=== PATIENT | female | born 1950 | race Caucasian/White ===

== ENCOUNTER → 2020-12-28 12:40 | Outpatient (BNVA) | payer MEDICARE, MEDICAID, SELFPAY | PROVIDERS: PCP Family Medicine; Visit Provider Internal Medicine | DX: I48.0 Paroxysmal atrial fibrillation (principal); I10 Essential (primary) hypertension; Z79.01 Long term (current) use of anticoagulants; Z79.899 Other long term (current) drug therapy | CPT/HCPCS: 99212 ==

== ENCOUNTER 2021-05-01 14:09 | Inpatient (IN) | payer MEDICARE, MEDICAID, SELFPAY ==
--- NOTE | ~2021-05-01 | XR_ITS ---
EXAMINATION: XR CHEST CLINICAL INFORMATION: Elevated white count. COMPARISON: Chest 03/06/2020 TECHNIQUE: 2 views of the chest were obtained. FINDINGS: No significant abnormality is noted involving the heart, lungs, mediastinum, bony thorax or soft tissues. There is an ventral plate lower cervical spine for fusion. XR/XR chest 2V IMPRESSION: Unremarkable chest examination.
[2021-05-01 14:17] VITALS: BP 147/81; PULSE 90; RESP 18; TEMP 36.8; O2SAT 96; BMI 37.8
--- NOTE | 2021-05-01 16:03 | ECG_ITS ---
Test Reason : CRISIS Blood Pressure : / mmHG Vent. Rate : 081 BPM Atrial Rate : 394 BPM P-R Int : 000 ms QRS Dur : 086 ms QT Int : 378 ms P-R-T Axes : 000 005 004 degrees QTc Int : 439 ms Atrial fibrillation Nonspecific ST and T wave abnormality Abnormal ECG When compared with ECG of 06-MAR-2020 08:25, No significant change was found Referred By: Generic ED Physician Electronically Signed By:HARINDER CAPUTO MD
--- NOTE | 2021-05-01 16:28 | ED.PSYCH ---
HPI - Psych General Chief Complaint: Psychiatric Symptoms Stated Complaint: emotions needs Time Seen by Provider: 05/01/21 16:06 Source: patient Mode of arrival: ambulatory Limitations: no limitations History of Present Illness HPI Narrative: 71-year-old female with a past medical history depression, AFib on Eliquis, hypertension, hyperlipidemia, hypothyroidism here with complaints of depression. The patient tells me that for the last year and a half she has been struggling with depression despite taking her medication. She had been doing ECT therapy which had improved her symptoms however due to the AFib that she was unable to continue this. She has been followed up by her psychiatrist. Over the last 5 weeks she feels like her depression is getting worse. She denies any suicidal thoughts. She tells me that she has been struggling with some nausea with vomiting and headaches with a 15 lb weight loss in the last 5 weeks. She tells me last week she was admitted to [facility] for this complaint for [address] head, CT A/P as well as additional test which she does not know the names of. She tells me that she is waiting for the results of her upper GI series. She is currently on Prilosec to 20 mg b.i.d.. She has Zofran and Compazine as needed at home. She tells me that she has nausea with eating. No abdominal pain. She does tell me that she is able to tolerate soft foods and liquids which do not bother her but has difficulty with more solid foods. complaint: feels depressed Related Data Home Medications Medication Instructions Recorded Confirmed desvenlafaxine succinate 50 mg 50 mg PO DAILY 12/28/20 05/01/21 tablet,extended release 24 hr diclofenac sodium 1 % topical gel 1 g TOPICAL QID PRN 12/28/20 05/01/21 dicyclomine 20 mg tablet 20 mg PO TID 12/28/20 05/01/21 loperamide 2 mg capsule 2 mg PO DAILY PRN 12/28/20 05/01/21 atorvastatin 80 mg PO DAILY 05/01/21 05/01/21 levothyroxine 100 mcg PO DAILY 05/01/21 05/01/21 lorazepam [Ativan] 0.25 mg PO DAILY PRN 05/01/21 05/01/21 lorazepam [Ativan] 0.5 mg PO BEDTIME PRN 05/01/21 05/01/21 metformin 500 mg PO DAILY 05/01/21 05/01/21 Previous Rx's Medication Instructions Recorded metoprolol succinate 25 mg 25 mg PO DAILY #90 tab 09/07/20 tablet,extended release 24 hr apixaban 5 mg tablet 5 mg PO BID 90 Days #180 tab 12/14/20 amlodipine 5 mg tablet 5 mg PO DAILY #90 tab 03/06/21 Allergies Allergy/AdvReac Type Severity Reaction Status Date / Time hornet venom [HORNETS] Allergy Unknown UNKNOWN Verified 12/28/20 13:03 morphine [MORPHINE] Allergy Unknown UNKNOWN Verified 12/28/20 13:03 tetracycline [TETRACYCLINE] Allergy Unknown UNKNOWN Verified 12/28/20 13:03 aspirin AdvReac Unknown nose bleeds Verified 12/28/20 13:04 Review of Systems Review of Systems: Yes all other systems are reviewed and are negative Constitutional: Constitutional: Reports no additional constitutional complaints, Denies body ache(s), Denies chills, Denies fever(s), Reports headache(s) and Denies weakness Eyes: Eyes: Reports no additional eye complaints and Denies change in vision ENT: Reports system reviewed and no additional complaints, except as documented, Denies dizziness, Reports headache(s), Denies nasal congestion, Denies nasal discharge and Denies neck pain Cardiovascular: Cardiovascular: Reports no additional cardiovascular complaints, Denies chest pain, Denies leg edema and Denies dyspnea Respiratory: Respiratory: Reports no additional respiratory complaints, Denies cough and Denies dyspnea Gastrointestinal: Gastrointestinal: Reports no additional gastrointestinal complaints, Denies abdominal pain, Denies diarrhea, Reports nausea and Reports vomiting Genitourinary: Genitourinary: Reports no additional female genitourinary complaints and Denies urinary incontinence Musculoskeletal: Musculoskeletal: Reports no additional musculoskeletal complaints, Denies back pain, Denies arthralgias, Denies joint swelling, Denies neck pain, Denies numbness and Denies tingling Integumentary/Breasts: Skin/Breast: Reports system reviewed and no additional complaints, except as docu and Denies rash Neurologic: Reports system reviewed and no additional complaints, except as documented, Denies Abnormal speech present, Denies dizziness, Reports headache(s), Denies numbness, Denies tingling and Denies weakness Psychiatric: Psychiatric: Reports anxiety, Reports depression, Denies hallucinations, Denies homicidal ideation and Denies suicidal ideation [facility] Past Medical History Attestation statement: The following information was validated with the patient. Source: old records reviewed and nursing notes reviewed Medical History (Updated 05/01/21 @ 20:21 by Elvi Santiago NP) Essential hypertension High cholesterol Hypothyroidism PAF (paroxysmal atrial fibrillation) Surgical History No pertinent past surgical history Family History Family History Father FH: prostate cancer Mother CVD (cardiovascular disease) Social History Social History Smoked in Last 30 Days: No Use of substances other than those prescribed or required for medical reasons: No Any prior treatment program specific to substance use: No Advance Directives: No Advance Directives Information Provided: Yes Healthcare Proxy: Yes Guardian: No Physical Exam Vital Signs: Vital Signs: Last Vital Signs Temp 97.9 F 05/01/21 19:53 Pulse 77 05/01/21 19:53 Resp 18 05/01/21 19:53 BP 136/76 05/01/21 19:53 Pulse Ox 98 05/01/21 19:53 Body Mass Index 37.8 Const: General: cooperative, healthy appearing, comfortable and no acute distress Orientation/consciousness: patient oriented x3 Limitations: no limitations HENMT: Head: Yes normal to inspection Ears: hearing grossly normal bilaterally General nose exam: Normal external nose present Face and sinus: Yes normal facial exam Mouth: Normal oral and palatal mucosa present Throat: Yes posterior oropharynx normal Eyes: General: appearance normal, both eyes and all related structures Pupils: Equal, round and reactive pupils present Neck: Neck: Yes normal visual inspection Chest: Chest palpation & inspection: normal inspection of the chest Resp: Effort & Inspection: normal respiratory effort Auscultation: clear to auscultation bilaterally Cardio: Rate: regular rate Rhythm: regular rhythm Peripheral pulses: Peripheral pulses 2+ throughout GI: Inspection: Yes normal to inspection Palpation (GI): Soft to palpation and nontender Auscultation: normal bowel sounds Back/Spine/Pelvis: Thoracic/Lumbar Spine: thoracic and lumbar spine normal to inspection Skin: General skin exam: no rashes or lesions noted Neuro: Other: Anxious General: patient oriented x3, no focal motor deficits and normal sensation to monofilament Cranial nerves: Yes Equal, round and reactive pupils present Cognition (Neuro): normal cognition Speech: No Abnormal speech present Gait exam (Neuro): Normal gait present Motor exam (neuro): 5/5 motor strength present throughout Extrem: General: Yes normal to inspection Course Course Course Narrative: 71-year-old female here with complaints of depression worsening over the last 5 weeks in the setting of a recent illness. Patient does tell me however it has been going on for quite longer than this after being unable to do ECT therapy. Also complaining of some weight loss of 15 lb in the last 5 weeks with nausea and headache. Admitted last week to [facility] for 5 days for workup. Pending some additional results. Will check labs, UA, EKG, COVID screen. Will obtain records from [facility]. 1809-per care team patient is voluntary inpatient for psych. 1999-labs show a leukocytosis. There is no shift. She appears to have a chronically elevated white blood cell count noted on her previous CBC's. Her labs otherwise are unremarkable. A chest x-ray and urine sample were done which were unremarkable. Her leukocytosis is likely reactive to her reports of vomiting at home. Her records were requested from [facility] however we will not receive these tonight. I reexamined the patient. She has no abdominal pain on exam. Her abdomen is soft and nontender. She has had no vomiting episodes here and is tolerating p.o. fluids. In addition afebrile so less likely acute abdomen with symptoms >5 weeks. I do not think a repeat CT scan is needed in this patient who had a reported negative CT abdomen scan last week. Discussed with attending physician Dr. Gayle. Patient is medically cleared for inpatient psych 2100-Sign out to night team pending above. MDM - Psych Medical Records Attestation: I reviewed the patient's medical records. Lab Data Attestation: I reviewed the patient's lab results. Result diagrams: 05/01/21 17:40 05/01/21 17:40 Labs: Lab Results 05/01/21 05/01/21 05/01/21 Range/Units 17:40 17:40 18:25 WBC 27.1 H (4.8-10.8) X10*3/uL RBC 5.36 (4.20-5.50) X10*6/uL Hgb 13.6 (12.0-16.0) g/dl Hct 43.9 (37-47) % MCV 81.9 (80-98) fL MCH 25.4 L (27.0-33.0) pg MCHC 31.0 (31.0-35.0) g/dl RDW 15.7 (11.0-16.0) % Plt Count 273 (160-400) X10*3/uL MPV 11.9 (9.4-12.3) fL Immature Gran % (Auto) Cancelled Neut % (Auto) Cancelled Lymph % (Auto) Cancelled [place] % (Auto) Cancelled Eos % (Auto) Cancelled Baso % (Auto) Cancelled Lymph # (Auto) Cancelled [place] # (Auto) Cancelled Eos # (Auto) Cancelled Baso # (Auto) Cancelled Abs Immat Gran (auto) Cancelled Absolute Neuts (auto) Cancelled Absolute Nucleated RBC 0.000 (0.0-0.012) X10*3/uL Nucleated RBC % (auto) 0.0 (0.0-0.2) /100WBC Neutrophils % (Manual) 17 L (45-73) % Band Neutrophils % 1 L (3-5) % Lymphocytes % (Manual) 20 (20-40) % Atypical Lymphs % (Man) 57 H (0-6) % Monocytes % (Manual) 5 (2-11) % Abs Neuts (Manual) 4.9 (2.2-7.9) X10*3/uL Lymphocytes # (Manual) 5.4 H (0.6-4.8) X10*3/uL Atyp Lymphs # (Manual) 15.4 x10*3/uL Monocytes # (Manual) 1.4 H (0.0-1.2) X10*3/uL Platelet Estimate NORMAL (NORMAL) Large Platelets PRESENT Plt Morphology Comment NOTED RBC Morphology NOTED Stomatocytes 1+ (5-14) /OIF Smear Tech's Comments MANUAL DIFF Sodium 144 (135-145) mmol/L Potassium 4.0 (3.3-5.1) mmol/L Chloride 111 H (96-108) mmol/L Carbon Dioxide 23 (22-29) mmol/L Anion Gap 14 (12-20) BUN 13 (9-16) mg/dL Creatinine 0.74 (0.5-1.4) mg/dL Estim Creat Clear Calc 79.0 Estimated GFR > 60 Random Glucose 95 (60-115) mg/dL Calcium 9.7 (8.4-10.2) mg/dL Total Bilirubin 0.7 (0.0-1.0) mg/dL Direct Bilirubin 0.2 (0.0-0.5) mg/dL AST 19 (5-31) U/L ALT 14 (0-31) U/L Alkaline Phosphatase 94 (39-117) U/L Total Protein 6.9 (6.5-8.0) g/dL Albumin 4.3 (3.5-5.0) g/dL Urine Color Urine Appearance Urine pH (5.0-8.0) Ur Specific [place] (1.005-1.025) Urine Protein (NEG-TRACE) MG/DL Urine Glucose (UA) (NEG) MG/DL Urine Ketones (NEG) MG/DL Urine Blood (NEG) Urine Nitrite (NEG) Ur Leukocyte Esterase (NEG) Urine Opiates Screen (Not Detect) Ur Barbiturates Screen (Not Detect) Ur Phencyclidine Scrn (Not Detect) Ur Amphetamines Screen (Not Detect) U Benzodiazepines Scrn (Not Detect) Urine Cocaine Screen (Not Detect) U Marijuana (THC) Screen (Not Detect) COVID-19 (LILIA) Negative (Negative) COVID-19 Clin Com See Note 05/01/21 05/01/21 Range/Units 19:24 19:24 WBC (4.8-10.8) X10*3/uL RBC (4.20-5.50) X10*6/uL Hgb (12.0-16.0) g/dl Hct (37-47) % MCV (80-98) fL MCH (27.0-33.0) pg MCHC (31.0-35.0) g/dl RDW (11.0-16.0) % Plt Count (160-400) X10*3/uL MPV (9.4-12.3) fL Immature Gran % (Auto) Neut % (Auto) Lymph % (Auto) [place] % (Auto) Eos % (Auto) Baso % (Auto) Lymph # (Auto) [place] # (Auto) Eos # (Auto) Baso # (Auto) Abs Immat Gran (auto) Absolute Neuts (auto) Absolute Nucleated RBC (0.0-0.012) X10*3/uL Nucleated RBC % (auto) (0.0-0.2) /100WBC Neutrophils % (Manual) (45-73) % Band Neutrophils % (3-5) % Lymphocytes % (Manual) (20-40) % Atypical Lymphs % (Man) (0-6) % Monocytes % (Manual) (2-11) % Abs Neuts (Manual) (2.2-7.9) X10*3/uL Lymphocytes # (Manual) (0.6-4.8) X10*3/uL Atyp Lymphs # (Manual) x10*3/uL Monocytes # (Manual) (0.0-1.2) X10*3/uL Platelet Estimate (NORMAL) Large Platelets Plt Morphology Comment RBC Morphology Stomatocytes /OIF Smear Tech's Comments Sodium (135-145) mmol/L Potassium (3.3-5.1) mmol/L Chloride (96-108) mmol/L Carbon Dioxide (22-29) mmol/L Anion Gap (12-20) BUN (9-16) mg/dL Creatinine (0.5-1.4) mg/dL Estim Creat Clear Calc Estimated GFR Random Glucose (60-115) mg/dL Calcium (8.4-10.2) mg/dL Total Bilirubin (0.0-1.0) mg/dL Direct Bilirubin (0.0-0.5) mg/dL AST (5-31) U/L ALT (0-31) U/L Alkaline Phosphatase (39-117) U/L Total Protein (6.5-8.0) g/dL Albumin (3.5-5.0) g/dL Urine Color YELLOW Urine Appearance HAZY Urine pH 6.0 (5.0-8.0) Ur Specific [place] >= 1.030 H (1.005-1.025) Urine Protein NEG (NEG-TRACE) MG/DL Urine Glucose (UA) NEG (NEG) MG/DL Urine Ketones NEG (NEG) MG/DL Urine Blood NEG (NEG) Urine Nitrite NEG (NEG) Ur Leukocyte Esterase NEG (NEG) Urine Opiates Screen Not Detected (Not Detect) Ur Barbiturates Screen Not Detected (Not Detect) Ur Phencyclidine Scrn Not Detected (Not Detect) Ur Amphetamines Screen Not Detected (Not Detect) U Benzodiazepines Scrn Not Detected (Not Detect) Urine Cocaine Screen Not Detected (Not Detect) U Marijuana (THC) Screen Not Detected (Not Detect) COVID-19 (LILIA) (Negative) COVID-19 Clin Com Discharge Plan Discharge Clinical Impression: Depression Patient Disposition: Admitted As Inpatient
--- NOTE | 2021-05-01 17:24 | HE.PHANOTE ---
Pharmacy has completed the medication reconciliation and there were no significant medication issues requiring provider attention.
[2021-05-01 17:48] LABS: Hematocrit 43.9 % (37-47); Hemoglobin 13.6 g/dl (12.0-16.0); Mean Corpuscular Hemoglobin 25.4 pg (27.0-33.0); Mean Corpuscular Volume 81.9 fL (80-98); Mean Platelet Volume 11.9 fL (9.4-12.3); Platelet Count 273 X10*3/uL (160-400); Red Blood Count 5.36 X10*6/uL (4.20-5.50); Red Cell Distribution Width 15.7 % (11.0-16.0); White Blood Count 27.1 X10*3/uL (4.8-10.8)
[2021-05-01 18:20] LABS: Anion Gap 14 (12-20); Blood Urea Nitrogen 13 mg/dL (9-16); Calcium 9.7 mg/dL (8.4-10.2); Carbon Dioxide 23 mmol/L (22-29); Chloride 111 mmol/L (96-108); Estimated Glomerular Filt Rate > 60; Glucose Random 95 mg/dL (60-115); Sodium 144 mmol/L (135-145)
[2021-05-01 18:49] LABS: COVID-19 Test Negative (Negative); IDNOW Serial# 9DD0AD1C
[2021-05-01 19:01] LABS: Alanine Aminotransferase 14 U/L (0-31); Albumin Level 4.3 g/dL (3.5-5.0); Alkaline Phosphatase 94 U/L (39-117); Aspartate Amino Transferase 19 U/L (5-31); Bilirubin Direct 0.2 mg/dL (0.0-0.5); Bilirubin Total 0.7 mg/dL (0.0-1.0); Total Protein 6.9 g/dL (6.5-8.0)
[2021-05-01 19:02] LABS: SLIDE REVIEW MANUAL DIFF
[2021-05-01 19:13] LABS: Atypical Lymph Absolute Manual 15.4 x10*3/uL; Atypical Lymphs Percent Manual 57 % (0-6); Band Neutrophils Percent 1 % (3-5); Large Platelet PRESENT; Lymphocytes Absolute Manual 5.4 X10*3/uL (0.6-4.8); Lymphocytes Percent Manual 20 % (20-40); Monocytes Absolute Manual 1.4 X10*3/uL (0.0-1.2); Monocytes Percent Manual 5 % (2-11); Neutrophils Absolute Manual 4.9 X10*3/uL (2.2-7.9); Neutrophils Percent Manual 17 % (45-73); Platelet Estimate NORMAL (NORMAL); Platelet Morphology Comment NOTED; RBC Morphology NOTED
[2021-05-01 19:14] LABS: Stomatocytes 1+ (5-14) /OIF
[2021-05-01 19:36] LABS: Glucose Urine UA NEG (NEG); Leukocyte Esterase Urine NEG (NEG); Nitrite Urine NEG (NEG); Specific Gravity - Urine >= 1.030 (1.005-1.025); Urine Blood NEG (NEG); Urine Ketones NEG (NEG); Urine Protein NEG (NEG-TRACE)
[2021-05-01 19:37] LABS: Appearance Urine HAZY; Color Urine YELLOW
[2021-05-01 19:53] VITALS: BP 136/76; PULSE 77; RESP 18; TEMP 36.6; O2SAT 98
[2021-05-01] MEDS: Acetaminophen 325 MG TABLET 650 MG PO (19:57)
[2021-05-01 20:04] LABS: Amphetamine Screen Urine Not Detected (Not Detect); Barbiturates, Urine Not Detected (Not Detect); Benzodiazepines Screen Urine Not Detected (Not Detect); Cannabinoid Screen Urine Not Detected (Not Detect); Cocaine Screen Urine Not Detected (Not Detect); Opiate Screen Urine Not Detected (Not Detect); Phencyclidine Screen Urine Not Detected (Not Detect)
[2021-05-01 21:18] VITALS: BP 113/72; PULSE 74; RESP 14; O2SAT 97
--- NOTE | 2021-05-01 22:34 | MHC.CARE ---
Pt arrived to ED as a planned admission to older adult psych unit for ECT, referred by her outpatient psychiatrist. CARE team completed evaluation. Pt will be transferred to the unit for admission when the doors are fixed by maintenance.
[2021-05-02] MEDS: LORazepam 0.5 MG TABLET PO ×2 (00:05→20:15)
[2021-05-02 06:00] VITALS: BP 122/82; PULSE 84; RESP 18; TEMP 36.2; O2SAT 98
[2021-05-02] MEDS: LORazepam 0.5 MG TABLET 0.25 MG PO (08:24)
[2021-05-02] MEDS: Levothyroxine Sodium 100 MCG TABLET PO (08:25)
[2021-05-02 08:26] VITALS: BP 140/82; PULSE 90
[2021-05-02] MEDS: metFORMIN HCl ER 500 MG TAB.ER.24H PO (08:26)
[2021-05-02] MEDS: amLODIPine Besylate 5 MG TABLET PO (08:26)
[2021-05-02 08:28] VITALS: BP 140/82; PULSE 90
[2021-05-02] MEDS: Metoprolol Succinate ER 25 MG TAB.ER.24H PO (08:28)
[2021-05-02] MEDS: Atorvastatin Calcium 80 MG TABLET PO (08:28)
[2021-05-02] MEDS: Apixaban 5 MG TABLET PO ×2 (08:28→20:15)
--- NOTE | 2021-05-02 13:55 | MHC.CLN ---
Talked with patient about weight loss and appetite. Reports 15# weight loss in past 6-7 weeks. Does not trigger as significant weight loss. Reports feeling nauseous with some foods. Agreed to try Ensure Clear supplement. Ordered Ensure Clear 240 cc BID to provide 360 kcal and 16 g protein if consumes 100%.
--- NOTE | 2021-05-02 15:15 | P.HPPS_ITS ---
HPI Chief Complaint: Depression Sources of Information: patient interviewed, chart reviewed and crisis/core team assessment reviewed HPI Subjective Notes: Conditional Voluntary Past Psychiatric History: Ms. Medina is a 71 year-old woman with extensive history of treatment resistant MDD. Pt presented to [facility] [place] ED at recommendation of her OP psychiatrist, Dr. Lashell Fraser for ECT due to increase symptoms of depression including passive suicidal ideation, anhedonia, hopeless/helpless, anxious and restless. 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 Pt reports increase weakness, fatigue, sense of fullness, vomiting Pt with hx of paroxysmal Afib--> cardiology consult for ECT clearance ordered with Dr. Martin(who is also pt's OP cardiology) [facility] Medical History (Updated 05/02/21 @ 19:27 by Lisa Perez) Essential hypertension High cholesterol Hypothyroidism PAF (paroxysmal atrial fibrillation) Surgical History No pertinent past surgical history Social History: Never . Retired more than 20 years ago due to severe depression. No children. Lives alone. Substance History: none Diagnostics Vital Signs (24Hr): Vital Signs - 24 hr 05/01/21 19:53 05/01/21 21:18 05/02/21 06:00 Temperature 97.9 F 97.2 F Pulse Rate 77 74 84 Respiratory Rate 18 14 18 Blood Pressure 136/76 113/72 122/82 Pulse Oximetry 98 97 98 05/02/21 08:26 05/02/21 08:28 05/02/21 18:00 Temperature 98.1 F Pulse Rate 90 90 79 Respiratory Rate Blood Pressure 140/82 H 140/82 H 140/63 H Pulse Oximetry 79 L Body Mass Index 37.8 Labs Results: 05/02/21 15:23 05/01/21 17:40 Labs: Laboratory Results - last 48 hr 05/01/21 05/01/21 05/01/21 17:40 17:40 18:25 WBC 27.1 H RBC 5.36 Hgb 13.6 Hct 43.9 MCV 81.9 MCH 25.4 L MCHC 31.0 RDW 15.7 Plt Count 273 MPV 11.9 Immature Gran % (Auto) Cancelled Neut % (Auto) Cancelled Lymph % (Auto) Cancelled [place] % (Auto) Cancelled Eos % (Auto) Cancelled Baso % (Auto) Cancelled Lymph # (Auto) Cancelled [place] # (Auto) Cancelled Eos # (Auto) Cancelled Baso # (Auto) Cancelled Abs Immat Gran (auto) Cancelled Absolute Neuts (auto) Cancelled Absolute Nucleated RBC 0.000 Nucleated RBC % (auto) 0.0 Neutrophils % (Manual) 17 L Band Neutrophils % 1 L Lymphocytes % (Manual) 20 Atypical Lymphs % (Man) 57 H Monocytes % (Manual) 5 Abs Neuts (Manual) 4.9 Lymphocytes # (Manual) 5.4 H Atyp Lymphs # (Manual) 15.4 Monocytes # (Manual) 1.4 H Platelet Estimate NORMAL Large Platelets PRESENT Plt Morphology Comment NOTED RBC Morphology NOTED Stomatocytes 1+ (5-14) Smear Tech's Comments MANUAL DIFF Smear Path Review SEE NOTE Sodium 144 Potassium 4.0 Chloride 111 H Carbon Dioxide 23 Anion Gap 14 BUN 13 Creatinine 0.74 Estim Creat Clear Calc 79.0 Estimated GFR > 60 Random Glucose 95 Calcium 9.7 Total Bilirubin 0.7 Direct Bilirubin 0.2 AST 19 ALT 14 Alkaline Phosphatase 94 Total Protein 6.9 Albumin 4.3 Urine Color Urine Appearance Urine pH Ur Specific [place] Urine Protein Urine Glucose (UA) Urine Ketones Urine Blood Urine Nitrite Ur Leukocyte Esterase Urine Opiates Screen Ur Barbiturates Screen Ur Phencyclidine Scrn Ur Amphetamines Screen U Benzodiazepines Scrn Urine Cocaine Screen U Marijuana (THC) Screen COVID-19 (LILIA) Negative COVID-19 Clin Com See Note 05/01/21 05/01/21 05/02/21 19:24 19:24 15:23 WBC 23.8 H RBC 5.19 Hgb 13.4 Hct 42.8 MCV 82.5 MCH 25.8 L MCHC 31.3 RDW 15.7 Plt Count 273 MPV 12.0 Immature Gran % (Auto) 0.2 Neut % (Auto) 23.1 L Lymph % (Auto) 72.1 H [place] % (Auto) 3.5 Eos % (Auto) 0.8 Baso % (Auto) 0.3 Lymph # (Auto) 17.2 H [place] # (Auto) 0.8 Eos # (Auto) 0.2 Baso # (Auto) 0.1 Abs Immat Gran (auto) 0.04 H Absolute Neuts (auto) 5.5 Absolute Nucleated RBC 0.040 H Nucleated RBC % (auto) 0.2 Neutrophils % (Manual) Band Neutrophils % Lymphocytes % (Manual) Atypical Lymphs % (Man) Monocytes % (Manual) Abs Neuts (Manual) Lymphocytes # (Manual) Atyp Lymphs # (Manual) Monocytes # (Manual) Platelet Estimate Large Platelets Plt Morphology Comment RBC Morphology Stomatocytes Smear Tech's Comments VERIFIED Smear Path Review Sodium Potassium Chloride Carbon Dioxide Anion Gap BUN Creatinine Estim Creat Clear Calc Estimated GFR Random Glucose Calcium Total Bilirubin Direct Bilirubin AST ALT Alkaline Phosphatase Total Protein Albumin Urine Color YELLOW Urine Appearance HAZY Urine pH 6.0 Ur Specific [place] >= 1.030 H Urine Protein NEG Urine Glucose (UA) NEG Urine Ketones NEG Urine Blood NEG Urine Nitrite NEG Ur Leukocyte Esterase NEG Urine Opiates Screen Not Detected Ur Barbiturates Screen Not Detected Ur Phencyclidine Scrn Not Detected Ur Amphetamines Screen Not Detected U Benzodiazepines Scrn Not Detected Urine Cocaine Screen Not Detected U Marijuana (THC) Screen Not Detected COVID-19 (LILIA) COVID-19 Clin Com Imaging Radiology Impressions: ITS Impressions Chest X-Ray 05/01/21 18:14 IMPRESSION: Unremarkable chest examination. Meds/Allergies Meds Home Medications Acetaminophen (Acetaminophen 325 Mg Tablet) 650 mg PO Q6H PRN PRN Reason: Headache/Pain Mild Scale (1-3) Al Hydroxide/Mg Hydroxide (Magnesium Hydrox/Alum Hydrox 30 Ml Oral.Susp) 30 ml PO Q6H PRN PRN Reason: Heartburn/Nausea Amlodipine Besylate (Amlodipine Besylate 5 Mg Tablet) 5 mg PO DAILY [facility]; Protocol Last Admin: 05/02/21 08:26 Dose: 5 mg Documented by: Apixaban (Apixaban 5 Mg Tablet) 5 mg PO BID [facility] Last Admin: 05/02/21 08:28 Dose: 5 mg Documented by: Atorvastatin Calcium (Atorvastatin Calcium 80 Mg Tablet) 80 mg PO DAILY [facility] Last Admin: 05/02/21 08:28 Dose: 80 mg Documented by: Dicyclomine HCl (Dicyclomine Hcl 10 Mg Capsule) 20 mg PO TID [facility] Last Admin: 05/02/21 11:25 Dose: Not Given Documented by: Levothyroxine Sodium (Levothyroxine Sodium 100 Mcg Tablet) 100 mcg PO DAILY@0630 [facility] Last Admin: 05/02/21 08:25 Dose: 100 mcg Documented by: Loperamide HCl (Loperamide Hcl 2 Mg Capsule) 2 mg PO DAILY PRN PRN Reason: Diarrhea Lorazepam (Lorazepam 0.5 Mg Tablet) 0.25 mg PO DAILY PRN PRN Reason: Anxiety Last Admin: 05/02/21 08:24 Dose: 0.25 mg Documented by: Lorazepam (Lorazepam 0.5 Mg Tablet) 0.5 mg PO BEDTIME PRN PRN Reason: Anxiety Last Admin: 05/02/21 00:05 Dose: 0.5 mg Documented by: Magnesium Hydroxide (Milk Of Magnesia 30 Ml Oral.Susp) 30 ml PO DAILY PRN PRN Reason: Constipation Metformin HCl (Metformin Hcl Er 500 Mg Tab.Er.24h) 500 mg PO DAILY [facility] Last Admin: 05/02/21 08:26 Dose: 500 mg Documented by: Metoprolol Succinate (Metoprolol Succinate Er 25 Mg Tab.Er.24h) 25 mg PO DAILY [facility]; Protocol Last Admin: 05/02/21 08:28 Dose: 25 mg Documented by: Non-Formulary Medication (Desvenlafaxine Succinate) 50 mg PO DAILY [facility] Non-Formulary Medication (Diclofenac Sodium) 1 gm TOPICAL QID PRN PRN Reason: joint pain Ondansetron HCl (Ondansetron Odt 4 Mg Tab.Rapdis) 4 mg TRANSLINGU Q8H PRN PRN Reason: Nausea and Vomiting Pharmacy Consult (Consult Rx Perform Med Rec) 1 each MISCELLANE ONCE PRN PRN Reason: Consult order Trazodone HCl (Trazodone Hcl 50 Mg Tablet) 50 mg PO BEDTIME PRN PRN Reason: Insomnia Allergies Allergies Allergy/AdvReac Type Severity Reaction Status Date / Time hornet venom [HORNETS] Allergy Unknown UNKNOWN Verified 12/28/20 13:03 morphine [MORPHINE] Allergy Unknown UNKNOWN Verified 12/28/20 13:03 tetracycline [TETRACYCLINE] Allergy Unknown UNKNOWN Verified 12/28/20 13:03 aspirin AdvReac Unknown nose bleeds Verified 12/28/20 13:04 Mental Status Exam Mental Status Exam Narrative: Appearance: casually groomed, restless, fair hygiene Behavior: calm, cooperative Speech: clear, normal rate/rhythm/volume, spontaneous Psychomotor: some restlessness, tapping feet, mild rocking TP: linear TC: hopeless, no psychosis Mood: depressed Affect: blunted, congruent SI: passive, denies plan or intent HI: none VH/AH: none Delusions: none Insight/judgment: fair x 2 Memory/cog: alert, oriented x 3. grossly intact to conversational testing. Assessment & Plan Assessment & Plan (1) PAF (paroxysmal atrial fibrillation): Status: Acute Code(s): I48.0 - Paroxysmal atrial fibrillation (2) Essential hypertension: Status: Acute Code(s): I10 - Essential (primary) hypertension (3) Lymphoblastic leukemia: Status: Acute Code(s): C91.00 - Acute lymphoblastic leukemia not having achieved remission Assessment and Plan: CBC shows chronic leukocitosis with lymphocitis and monocytosis, along with neutropenia. Pt sees oncologist Dr. Pelaez ([phone]) (4) MDD (major depressive disorder), recurrent episode, severe: Status: Acute Code(s): F33.2 - Major depressive disorder, recurrent severe without psychotic features Assessment and Plan: Ms. Medina is a 71 year-old woman with hx of MDD. She is here at recommendation of OP psychiatrist given treatment resistant depression and minimal response to psychotropic medications. Pt had ECT last year which she reports was helpful but was stopped due to new dx of paraxysmal afib. - cardiology consult for clearance for ECT placed -continue Pristiq- not on formulary Reason for continued inpatient stay Substantial Risk for: inability to function
[2021-05-02 15:52] LABS: Basophils Absolute Auto 0.1 X10*3/uL (0.0-0.2); Basophils Percent Auto 0.3 % (0-2); Eosinophils Absolute Auto 0.2 X10*3/uL (0.0-0.4); Eosinophils Percent Auto 0.8 % (0-4); Hematocrit 42.8 % (37-47); Hemoglobin 13.4 g/dl (12.0-16.0); Imm Gran Abs Auto 0.04 X10*3/uL (0.00-0.03); Imm Gran Pct Auto 0.2 % (0.0-0.4); Lymphocytes Absolute Auto 17.2 X10*3/uL (1.2-4.9); Lymphocytes Percent Auto 72.1 % (20-40); MANUAL DIFF FLAG SCAN; Mean Corpuscular HGB Conc 31.3 g/dl (31.0-35.0); Mean Corpuscular Hemoglobin 25.8 pg (27.0-33.0); Mean Corpuscular Volume 82.5 fL (80-98); Monocytes Absolute Auto 0.8 X10*3/uL (0.1-1.2); Monocytes Percent Auto 3.5 % (2-11); NRBC Pct Auto 0.2 /100WBC (0.0-0.2); Neutrophils Absolute Auto 5.5 X10*3/uL (2.0-8.3); Neutrophils Percent Auto 23.1 % (45-73); Platelet Count 273 X10*3/uL (160-400); Red Blood Count 5.19 X10*6/uL (4.20-5.50); Red Cell Distribution Width 15.7 % (11.0-16.0); SCAN SMEAR FLAG 1; White Blood Count 23.8 X10*3/uL (4.8-10.8)
[2021-05-02 16:00] LABS: SLIDE REVIEW VERIFIED
[2021-05-02 18:00] VITALS: BP 140/63; PULSE 79; TEMP 36.7; O2SAT 79
[2021-05-02] MEDS: Dicyclomine HCl 10 MG CAPSULE 20 MG PO (20:15)
[2021-05-02 21:11] LABS: Glucose, Whole Blood 92 mg/dL (60-115)
[2021-05-03 06:39] VITALS: BP 115/64; PULSE 84; TEMP 36.8; O2SAT 95
[2021-05-03] MEDS: Levothyroxine Sodium 100 MCG TABLET PO (06:43)
[2021-05-03 08:11] LABS: Estimated Average Glucose 117 mg/dL; Hemoglobin A1c % 5.7 %
[2021-05-03 08:17] LABS: Cholesterol 174 mg/dL; HDL Cholesterol 42 mg/dL; LDL Cholesterol Calculated 102 mg/dl; Triglycerides 151 mg/dL
[2021-05-03] MEDS: Atorvastatin Calcium 80 MG TABLET PO (08:32)
[2021-05-03] MEDS: Apixaban 5 MG TABLET PO ×2 (08:32→21:11)
[2021-05-03 08:34] VITALS: BP 119/74; PULSE 83
[2021-05-03] MEDS: Metoprolol Succinate ER 25 MG TAB.ER.24H PO ×2 (08:34→16:12)
[2021-05-03] MEDS: amLODIPine Besylate 5 MG TABLET PO (08:34)
[2021-05-03 08:37] LABS: TSH reflex Free T4 0.49 uIU/mL (0.32-4.0); Vitamin D 25-OH Total 30.8 ng/mL (>30)
[2021-05-03] MEDS: LORazepam 0.5 MG TABLET 0.25 MG PO (08:41)
--- NOTE | 2021-05-03 12:56 | HO.PSYCHPN ---
Subjective Subjective Date of Service: 05/03/21 Reason For Visit: Depression Interim History: The patient was admitted to start ECT. Cardiology consult was pending since she has a-fib and we need clearence. She remains depressed, with severe psychomotor retardation and anhedonia. She takes Pristiq but she couldn't bring it to the hospital so we changed to Effexor XR on the meantime. Mental Status Exam Mental Status Exam Patient Appearance: Well Grooomed Patient Orientation: Person, Place, Time and Situation Level of Consciousness: Appropriate Patient Behavior: Cooperative Mood Description: Constricted Affect Description: Constricted Patient Cognition Impaired: No Ability to Follow Directions: Good Speech Pattern: Clear Memory Description: Intact Hallucinations: None Delusions: Not Present Thought Process: Goal Oriented Thought Content: positive for Poverty of Content Judgement: Fair Diagnostics Vital Signs (24Hr): Vital Signs - 24 hr 05/02/21 18:00 05/03/21 06:39 05/03/21 08:34 Temperature 98.1 F 98.2 F Pulse Rate 79 84 83 Blood Pressure 140/63 H 115/64 119/74 Pulse Oximetry 79 L 95 Body Mass Index 37.8 Labs Results: 05/02/21 15:23 05/01/21 17:40 Labs: Laboratory Results - last 48 hr 05/01/21 05/01/21 05/01/21 17:40 17:40 18:25 WBC 27.1 H RBC 5.36 Hgb 13.6 Hct 43.9 MCV 81.9 MCH 25.4 L MCHC 31.0 RDW 15.7 Plt Count 273 MPV 11.9 Immature Gran % (Auto) Cancelled Neut % (Auto) Cancelled Lymph % (Auto) Cancelled [place] % (Auto) Cancelled Eos % (Auto) Cancelled Baso % (Auto) Cancelled Lymph # (Auto) Cancelled [place] # (Auto) Cancelled Eos # (Auto) Cancelled Baso # (Auto) Cancelled Abs Immat Gran (auto) Cancelled Absolute Neuts (auto) Cancelled Absolute Nucleated RBC 0.000 Nucleated RBC % (auto) 0.0 Neutrophils % (Manual) 17 L Band Neutrophils % 1 L Lymphocytes % (Manual) 20 Atypical Lymphs % (Man) 57 H Monocytes % (Manual) 5 Abs Neuts (Manual) 4.9 Lymphocytes # (Manual) 5.4 H Atyp Lymphs # (Manual) 15.4 Monocytes # (Manual) 1.4 H Platelet Estimate NORMAL Large Platelets PRESENT Plt Morphology Comment NOTED RBC Morphology NOTED Stomatocytes 1+ (5-14) Smear Tech's Comments MANUAL DIFF Smear Path Review SEE NOTE Sodium 144 Potassium 4.0 Chloride 111 H Carbon Dioxide 23 Anion Gap 14 BUN 13 Creatinine 0.74 Estim Creat Clear Calc 79.0 Estimated GFR > 60 POC Glucose Random Glucose 95 Estimat Average Glucose Hemoglobin A1c % Calcium 9.7 Total Bilirubin 0.7 Direct Bilirubin 0.2 AST 19 ALT 14 Alkaline Phosphatase 94 Total Protein 6.9 Albumin 4.3 Triglycerides Cholesterol LDL Cholesterol, Calc HDL Cholesterol 25-OH Vitamin D Total TSH Urine Color Urine Appearance Urine pH Ur Specific [place] Urine Protein Urine Glucose (UA) Urine Ketones Urine Blood Urine Nitrite Ur Leukocyte Esterase Urine Opiates Screen Ur Barbiturates Screen Ur Phencyclidine Scrn Ur Amphetamines Screen U Benzodiazepines Scrn Urine Cocaine Screen U Marijuana (THC) Screen COVID-19 (LILIA) Negative COVID-19 Clin Com See Note 05/01/21 05/01/21 05/02/21 19:24 19:24 15:23 WBC 23.8 H RBC 5.19 Hgb 13.4 Hct 42.8 MCV 82.5 MCH 25.8 L MCHC 31.3 RDW 15.7 Plt Count 273 MPV 12.0 Immature Gran % (Auto) 0.2 Neut % (Auto) 23.1 L Lymph % (Auto) 72.1 H [place] % (Auto) 3.5 Eos % (Auto) 0.8 Baso % (Auto) 0.3 Lymph # (Auto) 17.2 H [place] # (Auto) 0.8 Eos # (Auto) 0.2 Baso # (Auto) 0.1 Abs Immat Gran (auto) 0.04 H Absolute Neuts (auto) 5.5 Absolute Nucleated RBC 0.040 H Nucleated RBC % (auto) 0.2 Neutrophils % (Manual) Band Neutrophils % Lymphocytes % (Manual) Atypical Lymphs % (Man) Monocytes % (Manual) Abs Neuts (Manual) Lymphocytes # (Manual) Atyp Lymphs # (Manual) Monocytes # (Manual) Platelet Estimate Large Platelets Plt Morphology Comment RBC Morphology Stomatocytes Smear Tech's Comments VERIFIED Smear Path Review Sodium Potassium Chloride Carbon Dioxide Anion Gap BUN Creatinine Estim Creat Clear Calc Estimated GFR POC Glucose Random Glucose Estimat Average Glucose Hemoglobin A1c % Calcium Total Bilirubin Direct Bilirubin AST ALT Alkaline Phosphatase Total Protein Albumin Triglycerides Cholesterol LDL Cholesterol, Calc HDL Cholesterol 25-OH Vitamin D Total TSH Urine Color YELLOW Urine Appearance HAZY Urine pH 6.0 Ur Specific [place] >= 1.030 H Urine Protein NEG Urine Glucose (UA) NEG Urine Ketones NEG Urine Blood NEG Urine Nitrite NEG Ur Leukocyte Esterase NEG Urine Opiates Screen Not Detected Ur Barbiturates Screen Not Detected Ur Phencyclidine Scrn Not Detected Ur Amphetamines Screen Not Detected U Benzodiazepines Scrn Not Detected Urine Cocaine Screen Not Detected U Marijuana (THC) Screen Not Detected COVID-19 (LILIA) COVID-19 Dana Translation 05/02/21 05/03/21 05/03/21 21:06 07:47 07:47 WBC RBC Hgb Hct MCV MCH MCHC RDW Plt Count MPV Immature Gran % (Auto) Neut % (Auto) Lymph % (Auto) [place] % (Auto) Eos % (Auto) Baso % (Auto) Lymph # (Auto) [place] # (Auto) Eos # (Auto) Baso # (Auto) Abs Immat Gran (auto) Absolute Neuts (auto) Absolute Nucleated RBC Nucleated RBC % (auto) Neutrophils % (Manual) Band Neutrophils % Lymphocytes % (Manual) Atypical Lymphs % (Man) Monocytes % (Manual) Abs Neuts (Manual) Lymphocytes # (Manual) Atyp Lymphs # (Manual) Monocytes # (Manual) Platelet Estimate Large Platelets Plt Morphology Comment RBC Morphology Stomatocytes Smear Tech's Comments Smear Path Review Sodium Potassium Chloride Carbon Dioxide Anion Gap BUN Creatinine Estim Creat Clear Calc Estimated GFR POC Glucose 92 Random Glucose Estimat Average Glucose Hemoglobin A1c % Calcium Total Bilirubin Direct Bilirubin AST ALT Alkaline Phosphatase Total Protein Albumin Triglycerides 151 Cholesterol 174 LDL Cholesterol, Calc 102 HDL Cholesterol 42 25-OH Vitamin D Total TSH 0.49 Urine Color Urine Appearance Urine pH Ur Specific [place] Urine Protein Urine Glucose (UA) Urine Ketones Urine Blood Urine Nitrite Ur Leukocyte Esterase Urine Opiates Screen Ur Barbiturates Screen Ur Phencyclidine Scrn Ur Amphetamines Screen U Benzodiazepines Scrn Urine Cocaine Screen U Marijuana (THC) Screen COVID-19 (LILIA) COVID-[employer] Blue 05/03/21 05/03/21 07:47 07:47 WBC RBC Hgb Hct MCV MCH MCHC RDW Plt Count MPV Immature Gran % (Auto) Neut % (Auto) Lymph % (Auto) [place] % (Auto) Eos % (Auto) Baso % (Auto) Lymph # (Auto) [place] # (Auto) Eos # (Auto) Baso # (Auto) Abs Immat Gran (auto) Absolute Neuts (auto) Absolute Nucleated RBC Nucleated RBC % (auto) Neutrophils % (Manual) Band Neutrophils % Lymphocytes % (Manual) Atypical Lymphs % (Man) Monocytes % (Manual) Abs Neuts (Manual) Lymphocytes # (Manual) Atyp Lymphs # (Manual) Monocytes # (Manual) Platelet Estimate Large Platelets Plt Morphology Comment RBC Morphology Stomatocytes Smear Tech's Comments Smear Path Review Sodium Potassium Chloride Carbon Dioxide Anion Gap BUN Creatinine Estim Creat Clear Calc Estimated GFR POC Glucose Random Glucose Estimat Average Glucose 117 Hemoglobin A1c % 5.7 Calcium Total Bilirubin Direct Bilirubin AST ALT Alkaline Phosphatase Total Protein Albumin Triglycerides Cholesterol LDL Cholesterol, Calc HDL Cholesterol 25-OH Vitamin D Total 30.8 TSH Urine Color Urine Appearance Urine pH Ur Specific [place] Urine Protein Urine Glucose (UA) Urine Ketones Urine Blood Urine Nitrite Ur Leukocyte Esterase Urine Opiates Screen Ur Barbiturates Screen Ur Phencyclidine Scrn Ur Amphetamines Screen U Benzodiazepines Scrn Urine Cocaine Screen U Marijuana (THC) Screen COVID-19 (LILIA) COVID-19 Clin Com Imaging Radiology Impressions: ITS Impressions Chest X-Ray 05/01/21 18:14 IMPRESSION: Unremarkable chest examination. Medications Medications Current Medications Generic Name Dose Route Start Last Admin Trade Name Freq PRN Reason Stop Dose Admin Acetaminophen 650 mg 05/01/21 23:45 Acetaminophen 325 Mg Tablet PO Q6H PRN Headache/Pain Mild Scale (1-3) Al Hydroxide/Mg Hydroxide 30 ml 05/01/21 23:45 Magnesium Hydrox/Alum Hydrox 30 Ml Oral.Susp PO Q6H PRN Heartburn/Nausea Amlodipine Besylate 5 mg 05/02/21 09:00 05/03/21 08:34 Amlodipine Besylate 5 Mg Tablet PO 5 mg DAILY [facility] Administration Protocol Apixaban 5 mg 05/02/21 09:00 05/03/21 08:32 Apixaban 5 Mg Tablet PO 5 mg BID [facility] Administration Atorvastatin Calcium 80 mg 05/02/21 09:00 05/03/21 08:32 Atorvastatin Calcium 80 Mg Tablet PO 80 mg DAILY [facility] Administration Dicyclomine HCl 20 mg 05/02/21 09:00 05/03/21 11:01 Dicyclomine Hcl 10 Mg Capsule PO Not Given TID [facility] Levothyroxine Sodium 100 mcg 05/02/21 06:30 05/03/21 06:43 Levothyroxine Sodium 100 Mcg Tablet PO 100 mcg DAILY@0630 [facility] Administration Loperamide HCl 2 mg 05/01/21 23:45 Loperamide Hcl 2 Mg Capsule PO DAILY PRN Diarrhea Lorazepam 0.25 mg 05/01/21 23:45 05/03/21 08:41 Lorazepam 0.5 Mg Tablet PO 0.25 mg DAILY PRN Administration Anxiety Lorazepam 0.5 mg 05/01/21 23:45 05/02/21 20:15 Lorazepam 0.5 Mg Tablet PO 0.5 mg BEDTIME PRN Administration Anxiety Magnesium Hydroxide 30 ml 05/01/21 23:45 Milk Of Magnesia 30 Ml Oral.Susp PO DAILY PRN Constipation Metformin HCl 500 mg 05/02/21 09:00 05/03/21 11:02 Metformin Hcl Er 500 Mg Tab.Er.24h PO Not Given DAILY [facility] Metoprolol Succinate 25 mg 05/02/21 09:00 05/03/21 08:34 Metoprolol Succinate Er 25 Mg Tab.Er.24h PO 25 mg DAILY [facility] Administration Protocol Non-Formulary Medication 50 mg 05/02/21 09:00 Desvenlafaxine Succinate PO DAILY [facility] Non-Formulary Medication 1 gm 05/01/21 23:45 Diclofenac Sodium TOPICAL QID PRN joint pain Ondansetron HCl 4 mg 05/02/21 06:08 Ondansetron Odt 4 Mg Tab.Rapdis TRANSLINGU Q8H PRN Nausea and Vomiting Pharmacy Consult 1 each 05/01/21 16:40 Consult Rx Perform Med Rec MISCELLANE ONCE PRN Consult order Trazodone HCl 50 mg 05/01/21 23:45 Trazodone Hcl 50 Mg Tablet PO BEDTIME PRN Insomnia Venlafaxine HCl 150 mg 05/04/21 09:00 Venlafaxine Hcl Er 150 Mg Cap.Er.24h PO DAILY [facility] Allergies Allergies Allergy/AdvReac Type Severity Reaction Status Date / Time hornet venom [HORNETS] Allergy Unknown UNKNOWN Verified 12/28/20 13:03 morphine [MORPHINE] Allergy Unknown UNKNOWN Verified 12/28/20 13:03 tetracycline [TETRACYCLINE] Allergy Unknown UNKNOWN Verified 12/28/20 13:03 aspirin AdvReac Unknown nose bleeds Verified 12/28/20 13:04 Assessment & Plan Assessment & Plan (1) PAF (paroxysmal atrial fibrillation): Status: Acute Code(s): I48.0 - Paroxysmal atrial fibrillation (2) Essential hypertension: Status: Acute Code(s): I10 - Essential (primary) hypertension (3) Lymphoblastic leukemia: Status: Acute Code(s): C91.00 - Acute lymphoblastic leukemia not having achieved remission Assessment and Plan: CBC shows chronic leukocitosis with lymphocitis and monocytosis, along with neutropenia. Pt sees oncologist Dr. Pelaez ([phone]) (4) MDD (major depressive disorder), recurrent episode, severe: Status: Acute Code(s): F33.2 - Major depressive disorder, recurrent severe without psychotic features Assessment and Plan: Ms. Medina is a 71 year-old woman with hx of MDD. She is here at recommendation of OP psychiatrist given treatment resistant depression and minimal response to psychotropic medications. Pt had ECT last year which she reports was helpful but was stopped due to new dx of paraxysmal afib. - cardiology consult for clearance for ECT placed - continue Pristiq- not on formulary if it is available, if not, Effexor XR 150 mg po Greater than 50% of the session was spent on counseling and/or coordination of care Reason for contiued inpatient stay Substantial Risk for: inability to function, rapid decompensation and med/psych decompensation
[2021-05-03] MEDS: Venlafaxine HCl ER 150 MG CAP.ER.24H PO ×2 (14:55→15:01)
--- NOTE | 2021-05-03 15:53 | P.CONCA_ITS ---
History of Present Illness History of Present Illness Date of Service: 05/03/21 Consult reason: atrial fibrillation and pre-op evaluation Chief complaint: Depression Narrative: I was requested to see Liane in cardiology consultation today for preoperative cardiovascular examination in setting of atrial fibrillation. Patient admitted with major depression and has responded to ECT therapy in past and is planned to undergo ECT therapy tomorrow. EKG on admission shows atrial fibrillation. She does have prior history of atrial fibrillation, however noted throughout that she has had EKGs which she has intermittent atrial fibrillation. Holter monitor showed paroxysmal atrial fibrillation. Currently being in atrial fibrillation she has no new symptoms. She denies any exertional chest pain, shortness of breath, orthopnea, PND, leg edema. She denies any p alpitations. Her rate is controlled. She is on oral anticoagulation therapy with Eliquis 5 mg b.i.d. which she has been taking religiously. She said about a year and half ago she had a myocardial perfusion imaging at [facility], do not have copy of that record but according to her this was within normal limits. Echocardiogram done last January was within normal limits Review of Systems Constitutional: Constitutional: Reports no additional constitutional complaints Cardiovascular: Cardiovascular: Reports no additional cardiovascular complaints Respiratory: Respiratory: Reports no additional respiratory complaints Gastrointestinal: Gastrointestinal: Reports no additional gastrointestinal complaints Genitourinary: Genitourinary: Reports no additional female genitourinary complaints Musculoskeletal: Musculoskeletal: Reports no additional musculoskeletal com plaints Neurologic: Reports system reviewed and no additional complaints, except as documented Psychiatric: Psychiatric: Reports no additional psychiatric complaints Endocrine: Endocrine: Reports no additional endocrine complaints Hematologic/Lymphatic: Hematologic/Lymphatic: Reports no additional hematologic/lymphatic complaints [facility] Past Medical History Medical History Essential hypertension High cholesterol Hypothyroidism PAF (paroxysmal atrial fibrillation) Family History Family History Father FH: prostate cancer Mother CVD (cardiovascular disease) Surgical History Surgical History No pertinent past surgical history Social History Social History Household Members: None Housing: Other Do you presently have visiting nurse or other home services: No Patient Tobacco Use Status: Never used Tobacco Smoked in Last 30 Days: No Use of substances other than those prescribed or required for medical reasons: No Currently Displaying Signs/Symptoms of Drug Intoxication Withdrawal: No Any prior treatment program specific to substance use: No Have you been hit, kicked, punched, or otherwise hurt by someone within the past year? If so, by whom?: No Do you feel safe in your current relationship?: No Is there a partner from a previous relationship who is making you feel unsafe no w?: No Are you made to feel afraid or neglected: No Shinto Healthcare Practices: [facility] Advance Directives: No Advance Directives Information Provided: Yes Advance Directives on File: Yes Healthcare Proxy: Yes Guardian: No Do you have thoughts of harming others: None Do you have a plan to hurt others: No Plan Recently lost weight without trying: Yes How much weight loss: 14-23 pounds Eating poorly because of decreased appetite: Yes Nutrition screen score: 5 Nutrition Risks: Acute nausea or vomiting x1 week Patient : No : No Poor oral hygiene: No service: No Meds Allergies Allergy/AdvReac Type Severity Reaction Status Date / Time hornet venom [HORNETS] Allergy Unknown UNKNOWN Verified 12/28/20 13:03 morphine [MORPHINE] Allergy Unknown UNKNOWN Verified 12/28/20 13:03 tetracycline [TETRACYCLINE] Allergy Unknown UNKNOWN Verified 12/28/20 13:03 aspirin AdvReac Unknown nose bleeds Verified 12/28/20 13:04 Active Medications: Current Medications Generic Name Dose Route Start Last Admin Trade Name Freq PRN Reason Stop Dose Admin Acetaminophen 650 mg 05/01/21 23:45 Acetaminophen 325 Mg Tablet PO Q6H PRN Headache/Pain Mild Scale (1-3) Al Hydroxide/Mg Hydroxide 30 ml 05/01/21 23:45 Magnesium Hydrox/Alum Hydrox 30 Ml Oral.Susp PO Q6H PRN Heartburn/Nausea Amlodipine Besylate 5 mg 05/02/21 09:00 05/03/21 08:34 Amlodipine Besylate 5 Mg Tablet PO 5 mg DAILY XAVI Administration Protocol Apixaban 5 mg 05/02/21 09:00 05/03/21 08:32 Apixaban 5 Mg Tablet PO 5 mg BID XAVI Administration Atorvastatin Calcium 80 mg 05/02/21 09:00 05/03/21 08:32 Atorvastatin Calcium 80 Mg Tablet PO 80 mg DAILY XAVI Administration Dicyclomine HCl 20 mg 05/02/21 09:00 05/03/21 11:01 Dicyclomine Hcl 10 Mg Capsule PO Not Given TID XAVI Levothyroxine Sodium 100 mcg 05/02/21 06:30 05/03/21 06:43 Levothyroxine Sodium 100 Mcg Tablet PO 100 mcg DAILY@0630 XAVI Administration Loperamide HCl 2 mg 05/01/21 23:45 Loperamide Hcl 2 Mg Capsule PO DAILY PRN Diarrhea Lorazepam 0.25 mg 05/01/21 23:45 05/03/21 08:41 Lorazepam 0.5 Mg Tablet PO 0.25 mg DAILY PRN Administration Anxiety Lorazepam 0.5 mg 05/01/21 23:45 05/02/21 20:15 Lorazepam 0.5 Mg Tablet PO 0.5 mg BEDTIME PRN Administration Anxiety Magnesium Hydroxide 30 ml 05/01/21 23:45 Milk Of Magnesia 30 Ml Oral.Susp PO DAILY PRN Constipation Metformin HCl 500 mg 05/02/21 09:00 05/03/21 11:02 Metformin Hcl Er 500 Mg Tab.Er.24h PO Not Given DAILY [facility] Metoprolol Succinate 50 mg 05/04/21 09:00 Metoprolol Succinate Er 50 Mg Tab.Er.24h PO DAILY [facility] Protocol Non-Formulary Medication 50 mg 05/02/21 09:00 Desvenlafaxine Succinate PO DAILY [facility] Non-Formulary Medication 1 gm 05/01/21 23:45 Diclofenac Sodium TOPICAL QID PRN joint pain Ondansetron HCl 4 mg 05/02/21 06:08 Ondansetron Odt 4 Mg Tab.Rapdis TRANSLINGU Q8H PRN Nausea and Vomiting Pharmacy Consult 1 each 05/01/21 16:40 Consult Rx Perform Med Rec MISCELLANE ONCE PRN Consult order Trazodone HCl 50 mg 05/01/21 23:45 Trazodone Hcl 50 Mg Tablet PO BEDTIME PRN Insomnia Venlafaxine HCl 150 mg 05/04/21 09:00 05/03/21 14:55 Venlafaxine Hcl Er 150 Mg Cap.Er.24h PO 150 mg DAILY XAVI Administration Home Medications Medication Instructions Recorded Confirmed Last Taken Type desvenlafaxine succinate 50 mg 50 mg PO DAILY 12/28/20 05/01/21 Unknown History tablet,extended release 24 hr diclofenac sodium 1 % topical gel 1 g TOPICAL QID PRN 12/28/20 05/01/21 Unknown History dicyclomine 20 mg tablet 20 mg PO TID 12/28/20 05/01/21 05/01/21 History loperamide 2 mg capsule 2 mg PO DAILY PRN 12/28/20 05/01/21 Unknown History atorvastatin 80 mg PO DAILY 05/01/21 05/01/21 05/01/21 History levothyroxine 100 mcg PO DAILY 05/01/21 05/01/21 05/01/21 History lorazepam [Ativan] 0.25 mg PO DAILY PRN 05/01/21 05/01/21 Unknown History lorazepam [Ativan] 0.5 mg PO BEDTIME PRN 05/01/21 05/01/21 Unknown History metformin 500 mg PO DAILY 05/01/21 05/01/21 Unknown History Physical Exam Vital Signs: Vital Signs: Last Vital Signs Temp 98.2 F 05/03/21 06:39 Pulse 83 05/03/21 08:34 Resp 18 05/02/21 06:00 BP 119/74 05/03/21 08:34 Pulse Ox 95 05/03/21 06:39 Body Mass Index 37.8 Const: General: cooperative, comfortable, no acute distress, alert, awake and well groomed Nutritional Appearance: obese Orientation/consciousness: patient oriented x3 Limitations: no limitations HENMT: Head: Yes normocephalic and Yes atraumatic Neck: Neck: Yes trachea midline, Yes supple and Yes no JVD Resp: Effort & Inspection: normal respiratory effort Auscultation: clear to auscultation bilaterally Cardio: Jugular venous distension: no JVD Rhythm: abnormal rhythm irregularly irregular Heart sounds: S1 normal heart sound present and S2 normal heart sound present GI: Auscultation: normal bowel sounds Skin: General skin exam: no rashes or lesions noted Neuro: General: patient oriented x3 Extrem: General: Yes no clubbing, cyanosis or edema Psych: Appearance: grossly normal Results Labs and Meds Result diagrams: 05/02/21 15:23 05/01/21 17:40 Lab results: Laboratory Results - last 24 hr 05/02/21 05/02/21 05/03/21 15:23 21:06 07:47 WBC 23.8 H RBC 5.19 Hgb 13.4 Hct 42.8 MCV 82.5 MCH 25.8 L MCHC 31.3 RDW 15.7 Plt Count 273 MPV 12.0 Immature Gran % (Auto) 0.2 Neut % (Auto) 23.1 L Lymph % (Auto) 72.1 H [place] % (Auto) 3.5 Eos % (Auto) 0.8 Baso % (Auto) 0.3 Lymph # (Auto) 17.2 H [place] # (Auto) 0.8 Eos # (Auto) 0.2 Baso # (Auto) 0.1 Abs Immat Gran (auto) 0.04 H Absolute Neuts (auto) 5.5 Absolute Nucleated RBC 0.040 H Nucleated RBC % (auto) 0.2 Smear Tech's Comments VERIFIED POC Glucose 92 Estimat Average Glucose Hemoglobin A1c % Triglycerides 151 Cholesterol 174 LDL Cholesterol, Calc 102 HDL Cholesterol 42 25-OH Vitamin D Total TSH 05/03/21 05/03/21 05/03/21 07:47 07:47 07:47 WBC RBC Hgb Hct MCV MCH MCHC RDW Plt Count MPV Immature Gran % (Auto) Neut % (Auto) Lymph % (Auto) [place] % (Auto) Eos % (Auto) Baso % (Auto) Lymph # (Auto) [place] # (Auto) Eos # (Auto) Baso # (Auto) Abs Immat Gran (auto) Absolute Neuts (auto) Absolute Nucleated RBC Nucleated RBC % (auto) Smear Tech's Comments POC Glucose Estimat Average Glucose 117 Hemoglobin A1c % 5.7 Triglycerides Cholesterol LDL Cholesterol, Calc HDL Cholesterol 25-OH Vitamin D Total 30.8 TSH 0.49 EKG shows atrial fibrillation with controlled ventricular response Assessment and Plan (1) Preoperative cardiovascular examination: Status: Acute Pre ECT cardiovascular examination elderly woman with known history of atrial fibrillation, currently rate control atrial fibrillation without any symptoms of angina or any signs of cardiac decompensation. Clinically she is doing well. She has good physical capacity. At current time I do not think patient is at unduly high risk for any cardiovascular events after ECT. Expect that could be slightly fast heart rate with ECT in patients with atrial fibrillation. This can be easily managed with short-acting IV Cardizem or esmolol in the perioperative. If needed. Meanwhile will increase metoprolol to 50 mg daily, will give additional 25 mg dose tonight. EKG post ECT to be performed. (2) Atrial fibrillation: Status: Acute Atrial fibrillation as above persistent, currently without any symptoms, or signs of cardiac decompensation. Continue rate control approach for now. Increase metoprolol to 50 mg daily. Continue full oral anticoagulation, curr ently on Eliquis 5 mg b.i.d.. Continue aggressive blood pressure control. Will set up for followup as outpatient was [facility] from [facility] in to 2-[address] Alanis Procedures Date of Service Date of Service: 05/03/21
[2021-05-03 16:12] VITALS: BP 132/67; PULSE 74
[2021-05-03] MEDS: Omeprazole 20 MG CAPSULE.DR PO (17:36)
[2021-05-03 18:00] VITALS: BP 142/69; PULSE 72; RESP 16; TEMP 36.4; O2SAT 95
[2021-05-03] MEDS: Acetaminophen 325 MG TABLET 650 MG PO (18:09)
[2021-05-03] MEDS: traZODone HCL 50 MG TABLET PO (21:15)
[2021-05-04] VITALS (12 sets, daily range): BP systolic 131–149; BP diastolic 60–87; PULSE 70–88; RESP 12–20; TEMP 35.9–36.5; O2SAT 94–97
--- NOTE | 2021-05-04 | ECG_ITS ---
Test Reason : F/U AFTER ECT Blood Pressure : / mmHG Vent. Rate : 067 BPM Atrial Rate : 340 BPM P-R Int : 000 ms QRS Dur : 092 ms QT Int : 396 ms P-R-T Axes : 000 -25 -22 degrees QTc Int : 418 ms Atrial fibrillation Nonspecific ST and T wave abnormality Abnormal ECG When compared with ECG of 04-MAY-2021 08:57, No significant changes seen Referred By: Rogerio Sinclair Electronically Signed By:HARINDER CAPUTO MD
--- NOTE | 2021-05-04 06:27 | PC.NURSE ---
patient has remained npo for possible ECT but needs clearance from hospitalist
--- NOTE | 2021-05-04 07:46 | HO.ANESPROP2 ---
[facility] Active Problems Active Problems: All Active Problems (Updated 05/03/21 @ 15:58 by Oscar Mcneill MD) Atrial fibrillation (Acute) Preoperative cardiovascular examination (Acute) MDD (major depressive disorder), recurrent episode, severe (Acute) Lymphoblastic leukemia (Acute) Depression (Acute) Essential hypertension (Acute) PAF (paroxysmal atrial fibrillation) (Acute) Past Medical History Medical History Essential hypertension High cholesterol Hypothyroidism PAF (paroxysmal atrial fibrillation) Family History Family History Father FH: prostate cancer Mother CVD (cardiovascular disease) Surgical History Surgical History No pertinent past surgical history Social History Social History Household Members: None Housing: Other Do you presently have visiting nurse or other home services: No Patient Tobacco Use Status: Never used Tobacco Smoked in Last 30 Days: No Use of substances other than those prescribed or required for medical reasons: No Currently Displaying Signs/Symptoms of Drug Intoxication Withdrawal: No Any prior treatment program specific to substance use: No Have you been hit, kicked, punched, or otherwise hurt by someone within the past year? If so, by whom?: No Do you feel safe in your current relationship?: No Is there a partner from a previous relationship who is making you feel unsafe now?: No Are you made to feel afraid or neglected: No Catholic Healthcare Practices: Pent[employer] Advance Directives: No Advance Directives Information Provided: Yes Advance Directives on File: Yes Healthcare Proxy: Yes Guardian: No Do you have thoughts of harming others: None Do you have a plan to hurt others: No Plan Recently lost weight without trying: Yes How much weight loss: 14-23 pounds Eating poorly because of decreased appetite: Yes Nutrition screen score: 5 Nutrition Risks: Acute nausea or vomiting x1 week Patient : No : No Poor oral hygiene: No service: No Meds Allergies Allergy/AdvReac Type Severity Reaction Status Date / Time hornet venom [HORNETS] Allergy Unknown UNKNOWN Verified 12/28/20 13:03 morphine [MORPHINE] Allergy Unknown UNKNOWN Verified 12/28/20 13:03 tetracycline [TETRACYCLINE] Allergy Unknown UNKNOWN Verified 12/28/20 13:03 aspirin AdvReac Unknown nose bleeds Verified 12/28/20 13:04 Active Medications: Current Medications Generic Name Dose Route Start Last Admin Trade Name Malik PRN Reason Stop Dose Admin Acetaminophen 650 mg 05/01/21 23:45 05/03/21 18:09 Acetaminophen 325 Mg Tablet PO 650 mg Q6H PRN Administration Headache/Pain Mild Scale (1-3) Al Hydroxide/Mg Hydroxide 30 ml 05/01/21 23:45 Magnesium Hydrox/Alum Hydrox 30 Ml Oral.Susp PO Q6H PRN Heartburn/Nausea Amlodipine Besylate 5 mg 05/02/21 09:00 05/03/21 08:34 Amlodipine Besylate 5 Mg Tablet PO 5 mg DAILY XAVI Administration Protocol Apixaban 5 mg 05/02/21 09:00 05/03/21 21:11 Apixaban 5 Mg Tablet PO 5 mg BID XAVI Administration Atorvastatin Calcium 80 mg 05/02/21 09:00 05/03/21 08:32 Atorvastatin Calcium 80 Mg Tablet PO 80 mg DAILY XAVI Administration Dicyclomine HCl 20 mg 05/02/21 09:00 05/04/21 01:11 Dicyclomine Hcl 10 Mg Capsule PO Not Given TID XAVI Levothyroxine Sodium 100 mcg 05/02/21 06:30 05/03/21 06:43 Levothyroxine Sodium 100 Mcg Tablet PO 100 mcg DAILY@0630 XAVI Administration Loperamide HCl 2 mg 05/01/21 23:45 Loperamide Hcl 2 Mg Capsule PO DAILY PRN Diarrhea Lorazepam 0.25 mg 05/01/21 23:45 05/03/21 08:41 Lorazepam 0.5 Mg Tablet PO 0.25 mg DAILY PRN Administration Anxiety Lorazepam 0.5 mg 05/01/21 23:45 05/02/21 20:15 Lorazepam 0.5 Mg Tablet PO 0.5 mg BEDTIME PRN Administration Anxiety Magnesium Hydroxide 30 ml 05/01/21 23:45 Milk Of Magnesia 30 Ml Oral.Susp PO DAILY PRN Constipation Metformin HCl 500 mg 05/02/21 09:00 05/03/21 11:02 Metformin Hcl Er 500 Mg Tab.Er.24h PO Not Given DAILY XAVI Metoprolol Succinate 50 mg 05/04/21 09:00 Metoprolol Succinate Er 50 Mg Tab.Er.24h PO DAILY XAVI Protocol Non-Formulary Medication 50 mg 05/02/21 09:00 Desvenlafaxine Succinate PO DAILY [facility] Non-Formulary Medication 1 gm 05/01/21 23:45 Diclofenac Sodium TOPICAL QID PRN joint pain Omeprazole 20 mg 05/03/21 17:30 05/03/21 17:36 Omeprazole 20 Mg Capsule. PO 20 mg BID@0630,1630 XAVI Administration Ondansetron HCl 4 mg 05/02/21 06:08 05/03/21 18:09 Ondansetron Odt 4 Mg Tab.Rapdis TRANSLINGU 4 mg Q8H PRN Administration Nausea and Vomiting Pharmacy Consult 1 each 05/01/21 16:40 Consult Rx Perform Med Rec MISCELLANE ONCE PRN Consult order Trazodone HCl 50 mg 05/01/21 23:45 05/03/21 21:15 Trazodone Hcl 50 Mg Tablet PO 50 mg BEDTIME PRN Administration Insomnia Venlafaxine HCl 150 mg 05/04/21 09:00 05/03/21 14:55 Venlafaxine Hcl Er 150 Mg Cap.Er.24h PO 150 mg DAILY XAVI Administration Home Medications Medication Instructions Recorded Confirmed Last Taken Type desvenlafaxine succinate 50 mg 50 mg PO DAILY 12/28/20 05/01/21 Unknown History tablet,extended release 24 hr diclofenac sodium 1 % topical gel 1 g TOPICAL QID PRN 12/28/20 05/01/21 Unknown History dicyclomine 20 mg tablet 20 mg PO TID 12/28/20 05/01/21 05/01/21 History loperamide 2 mg capsule 2 mg PO DAILY PRN 12/28/20 05/01/21 Unknown History atorvastatin 80 mg PO DAILY 05/01/21 05/01/21 05/01/21 History levothyroxine 100 mcg PO DAILY 05/01/21 05/01/21 05/01/21 History lorazepam [Ativan] 0.25 mg PO DAILY PRN 05/01/21 05/01/21 Unknown History lorazepam [Ativan] 0.5 mg PO BEDTIME PRN 05/01/21 05/01/21 Unknown History metformin 500 mg PO DAILY 05/01/21 05/01/21 Unknown History Exam Exam Date and Time: May 04, 2021 0746 Height,Weight and Vital Signs: Height 5 ft 4 in Weight 100 kg Last Vital Signs Temp 97.2 F 05/04/21 07:09 Pulse 81 05/04/21 07:09 Resp 12 05/04/21 07:09 BP 131/60 05/04/21 07:09 Pulse Ox 95 05/04/21 07:09 Pertinent Lab Results Pertinent Lab Results: Laboratory Tests 05/01/21 05/01/21 05/01/21 17:40 17:40 18:25 WBC 27.1 H RBC 5.36 Hgb 13.6 Hct 43.9 MCV 81.9 MCH 25.4 L MCHC 31.0 RDW 15.7 Plt Count 273 MPV 11.9 Immature Gran % (Auto) Cancelled Neut % (Auto) Cancelled Lymph % (Auto) Cancelled [place] % (Auto) Cancelled Eos % (Auto) Cancelled Baso % (Auto) Cancelled Lymph # (Auto) Cancelled [place] # (Auto) Cancelled Eos # (Auto) Cancelled Baso # (Auto) Cancelled Abs Immat Gran (auto) Cancelled Absolute Neuts (auto) Cancelled Absolute Nucleated RBC 0.000 Nucleated RBC % (auto) 0.0 Neutrophils % (Manual) 17 L Band Neutrophils % 1 L Lymphocytes % (Manual) 20 Atypical Lymphs % (Man) 57 H Monocytes % (Manual) 5 Abs Neuts (Manual) 4.9 Lymphocytes # (Manual) 5.4 H Atyp Lymphs # (Manual) 15.4 Monocytes # (Manual) 1.4 H Platelet Estimate NORMAL Large Platelets PRESENT Plt Morphology Comment NOTED RBC Morphology NOTED Stomatocytes 1+ (5-14) Smear Tech's Comments MANUAL DIFF Smear Path Review SEE NOTE Sodium 144 Potassium 4.0 Chloride 111 H Carbon Dioxide 23 Anion Gap 14 BUN 13 Creatinine 0.74 Estim Creat Clear Calc 79.0 Estimated GFR > 60 POC Glucose Random Glucose 95 Estimat Average Glucose Hemoglobin A1c % Calcium 9.7 Total Bilirubin 0.7 Direct Bilirubin 0.2 AST 19 ALT 14 Alkaline Phosphatase 94 Total Protein 6.9 Albumin 4.3 Triglycerides Cholesterol LDL Cholesterol, Calc HDL Cholesterol 25-OH Vitamin D Total TSH Urine Color Urine Appearance Urine pH Ur Specific [place] Urine Protein Urine Glucose (UA) Urine Ketones Urine Blood Urine Nitrite Ur Leukocyte Esterase Urine Opiates Screen Ur Barbiturates Screen Ur Phencyclidine Scrn Ur Amphetamines Screen U Benzodiazepines Scrn Urine Cocaine Screen U Marijuana (THC) Screen COVID-19 (LILIA) Negative COVID-19 Clin Com See Note 05/01/21 05/01/21 05/02/21 19:24 19:24 15:23 WBC 23.8 H RBC 5.19 Hgb 13.4 Hct 42.8 MCV 82.5 MCH 25.8 L MCHC 31.3 RDW 15.7 Plt Count 273 MPV 12.0 Immature Gran % (Auto) 0.2 Neut % (Auto) 23.1 L Lymph % (Auto) 72.1 H [place] % (Auto) 3.5 Eos % (Auto) 0.8 Baso % (Auto) 0.3 Lymph # (Auto) 17.2 H [place] # (Auto) 0.8 Eos # (Auto) 0.2 Baso # (Auto) 0.1 Abs Immat Gran (auto) 0.04 H Absolute Neuts (auto) 5.5 Absolute Nucleated RBC 0.040 H Nucleated RBC % (auto) 0.2 Neutrophils % (Manual) Band Neutrophils % Lymphocytes % (Manual) Atypical Lymphs % (Man) Monocytes % (Manual) Abs Neuts (Manual) Lymphocytes # (Manual) Atyp Lymphs # (Manual) Monocytes # (Manual) Platelet Estimate Large Platelets Plt Morphology Comment RBC Morphology Stomatocytes Smear Tech's Comments VERIFIED Smear Path Review Sodium Potassium Chloride Carbon Dioxide Anion Gap BUN Creatinine Estim Creat Clear Calc Estimated GFR POC Glucose Random Glucose Estimat Average Glucose Hemoglobin A1c % Calcium Total Bilirubin Direct Bilirubin AST ALT Alkaline Phosphatase Total Protein Albumin Triglycerides Cholesterol LDL Cholesterol, Calc HDL Cholesterol 25-OH Vitamin D Total TSH Urine Color YELLOW Urine Appearance HAZY Urine pH 6.0 Ur Specific [place] >= 1.030 H Urine Protein NEG Urine Glucose (UA) NEG Urine Ketones NEG Urine Blood NEG Urine Nitrite NEG Ur Leukocyte Esterase NEG Urine Opiates Screen Not Detected Ur Barbiturates Screen Not Detected Ur Phencyclidine Scrn Not Detected Ur Amphetamines Screen Not Detected U Benzodiazepines Scrn Not Detected Urine Cocaine Screen Not Detected U Marijuana (THC) Screen Not Detected COVID-19 ([facility]) COVID-19 Clin Com 05/02/21 05/03/21 05/03/21 21:06 07:47 07:47 WBC RBC Hgb Hct MCV MCH MCHC RDW Plt Count MPV Immature Gran % (Auto) Neut % (Auto) Lymph % (Auto) [place] % (Auto) Eos % (Auto) Baso % (Auto) Lymph # (Auto) [place] # (Auto) Eos # (Auto) Baso # (Auto) Abs Immat Gran (auto) Absolute Neuts (auto) Absolute Nucleated RBC Nucleated RBC % (auto) Neutrophils % (Manual) Band Neutrophils % Lymphocytes % (Manual) Atypical Lymphs % (Man) Monocytes % (Manual) Abs Neuts (Manual) Lymphocytes # (Manual) Atyp Lymphs # (Manual) Monocytes # (Manual) Platelet Estimate Large Platelets Plt Morphology Comment RBC Morphology Stomatocytes Smear Tech's Comments Smear Path Review Sodium Potassium Chloride Carbon Dioxide Anion Gap BUN Creatinine Estim Creat Clear Calc Estimated GFR POC Glucose 92 Random Glucose Estimat Average Glucose Hemoglobin A1c % Calcium Total Bilirubin Direct Bilirubin AST ALT Alkaline Phosphatase Total Protein Albumin Triglycerides 151 Cholesterol 174 LDL Cholesterol, Calc 102 HDL Cholesterol 42 25-OH Vitamin D Total TSH 0.49 Urine Color Urine Appearance Urine pH Ur Specific [place] Urine Protein Urine Glucose (UA) Urine Ketones Urine Blood Urine Nitrite Ur Leukocyte Esterase Urine Opiates Screen Ur Barbiturates Screen Ur Phencyclidine Scrn Ur Amphetamines Screen U Benzodiazepines Scrn Urine Cocaine Screen U Marijuana (THC) Screen COVID-19 (LILIA) COVID-19 [employer] Com 05/03/21 05/03/21 07:47 07:47 WBC RBC Hgb Hct MCV MCH MCHC RDW Plt Count MPV Immature Gran % (Auto) Neut % (Auto) Lymph % (Auto) [place] % (Auto) Eos % (Auto) Baso % (Auto) Lymph # (Auto) [place] # (Auto) Eos # (Auto) Baso # (Auto) Abs Immat Gran (auto) Absolute Neuts (auto) Absolute Nucleated RBC Nucleated RBC % (auto) Neutrophils % (Manual) Band Neutrophils % Lymphocytes % (Manual) Atypical Lymphs % (Man) Monocytes % (Manual) Abs Neuts (Manual) Lymphocytes # (Manual) Atyp Lymphs # (Manual) Monocytes # (Manual) Platelet Estimate Large Platelets Plt Morphology Comment RBC Morphology Stomatocytes Smear Tech's Comments Smear Path Review Sodium Potassium Chloride Carbon Dioxide Anion Gap BUN Creatinine Estim Creat Clear Calc Estimated GFR POC Glucose Random Glucose Estimat Average Glucose 117 Hemoglobin A1c % 5.7 Calcium Total Bilirubin Direct Bilirubin AST ALT Alkaline Phosphatase Total Protein Albumin Triglycerides Cholesterol LDL Cholesterol, Calc HDL Cholesterol 25-OH Vitamin D Total 30.8 TSH Urine Color Urine Appearance Urine pH Ur Specific [place] Urine Protein Urine Glucose (UA) Urine Ketones Urine Blood Urine Nitrite Ur Leukocyte Esterase Urine Opiates Screen Ur Barbiturates Screen Ur Phencyclidine Scrn Ur Amphetamines Screen U Benzodiazepines Scrn Urine Cocaine Screen U Marijuana (THC) Screen COVID-19 ([facility]IA) COVID-19 Clin Com Airway Mallampati Class: III TM Dist: >3cm Neck ROM: Full Heart: irr Lungs: cta Assessment and Plan Assessment Anesthesia Assessment: Anesthesia Plan Discussed and Chart Reviewed Final Anesthetic Review NPO: Yes ASA Class: III Final Preanesthetic Review: No Changes in Pt Med Stat and Consent Obtained/Reviewed Patient Risk: Intermediate Procedure Risk: Intermediate Anesthetic Plan Anesthetic Plan: GA Disposition: Standard PACU
--- NOTE | 2021-05-04 08:12 | MHC.SHP ---
Pre-Procedural Eval Section A The patient is an INPATIENT: Yes Changes since office visit: No Cold of Flu in the past 2 weeks, No New Medical Problems, No Changes in Medication and No Patient answered all questions The History & Physical has been completed within 30 days and I have reviewed it.: Yes Section B Chief Complaint: Depression Details of Present Illness: History of depression, improved with ECT in the past Relevant Family History (Specify if Yes): No Relevant Social History: None Present Medications: see Short Stay Collaborative assessment Medical History: Significant History (a-fib cleared by medicine) History of Previous Operations: No relevant previous surgery Allergies: Allergies Allergy/AdvReac Type Severity Reaction Status Date / Time hornet venom [HORNETS] Allergy Unknown UNKNOWN Verified 12/28/20 13:03 morphine [MORPHINE] Allergy Unknown UNKNOWN Verified 12/28/20 13:03 tetracycline [TETRACYCLINE] Allergy Unknown UNKNOWN Verified 12/28/20 13:03 aspirin AdvReac Unknown nose bleeds Verified 12/28/20 13:04 Review of Systems Sugical H&P ROS: Negative: Constitution, Respiratory, Neurological, Psychiatric, Hem-Onc, Allergic/Immunologic, Gastrointestinal, Genitourinary, Musculoskeletal, Integumentary, Endocrine and Eyes/Ears/Nose/Throat and Yes, Specify: Cardiovascular (afib) Exam Surgical H&P Exam: Normal: HEENT, Normal: Heart, Normal: Lungs, Normal: Extremities, Normal: Abdomen, Normal: Skin and Normal: Neurological Plan Diagnosis/Plan: Unchanged I have reviewed the history and physical and performed a pertinent physical examination on my patient. No changes have occurred unless specified.
[2021-05-04] MEDS: Lactated Ringers 1,000 ML 50 ML IVCONT (08:15)
--- NOTE | 2021-05-04 08:37 | HO.ECTPROC ---
ECT Procedure Note Diagnosis/Treatment Date of Service: 05/04/21 Diagnosis: Major Depressive Disorder Current Treatment Number: 1 Treatment: Series Interval Clinical Notes: The patient was admitted for ECT since her depression worsened and she has not responded to several antidepressant trials. ECT Settings Device: THYMATRON DGx Electrode Placement: Right Unilateral Program/Pulse Width: 0.25 Energy Percent: 50 Seizure Duration By EEG (in seconds): 73 By Motor Observation (in seconds): 52 Medications Administration General Anesthetic: Etomidate (14) Muscle Relaxant: Succinylcholine (100) Ancillary Medications Analgesics: Torodol - Pre ECT Anti-emetics: Zofran - Pre ECT Cardiovascular Medications: Esmolol Miscillaneous Medications: Propofol Airway Management Airway Management: Bag Mask Ventilation Treatment Recommendations Electrode Placement: Right Unilateral Program/Pulse Width: 0.25 Energy Percent: 40 Pt Tolerated Procedure w/o Issue: Yes
--- NOTE | 2021-05-04 08:42 | ECG_ITS ---
Test Reason : HX AFIB Blood Pressure : / mmHG Vent. Rate : 083 BPM Atrial Rate : 357 BPM P-R Int : 000 ms QRS Dur : 094 ms QT Int : 388 ms P-R-T Axes : 000 -07 -03 degrees QTc Int : 455 ms Atrial fibrillation Minimal voltage criteria for LVH, may be normal variant Cannot rule out Anterior infarct , age undetermined Abnormal ECG When compared with ECG of 01-MAY-2021 17:36, No significant change was found Referred By: Oscar Mcneill Electronically Signed By:OSCAR MCNEILL MD
[2021-05-04] MEDS: LORazepam 0.5 MG TABLET 0.25 MG PO (10:48)
[2021-05-04] MEDS: Acetaminophen 325 MG TABLET 650 MG PO ×2 (10:49→21:37)
[2021-05-04] MEDS: Atorvastatin Calcium 80 MG TABLET PO (10:49)
[2021-05-04] MEDS: amLODIPine Besylate 5 MG TABLET PO (10:49)
[2021-05-04] MEDS: Metoprolol Succinate ER 50 MG TAB.ER.24H PO (10:49)
[2021-05-04] MEDS: Venlafaxine HCl ER 150 MG CAP.ER.24H PO (10:50)
[2021-05-04] MEDS: Apixaban 5 MG TABLET PO ×2 (10:50→21:38)
[2021-05-04] MEDS: Omeprazole 20 MG CAPSULE.DR PO ×2 (10:50→15:38)
[2021-05-04] MEDS: Levothyroxine Sodium 100 MCG TABLET PO (11:04)
--- NOTE | 2021-05-04 11:39 | P.PNPSI_ITS ---
Subjective Subjective Date of Service: 05/04/21 Reason For Visit: Depression Interim History: The patient had ECT today AM without any complications. Her only complaint was mild headache and nausea. She is still dysphoric, with depressed mood, anhedonia, lack of energy and passive suicidal thoughts. She is unable to function by herself due to the severe anergia. Medication Compliance: Yes Side effects from medications: No Attending Groups: Intermittent Mental Status Exam Mental Status Exam Patient Appearance: Well Grooomed Patient Orientation: Person, Place, Time and Situation Level of Consciousness: Awake Patient Behavior: Appropriate Mood Description: Withdrawn and Depressed Affect Description: Constricted Patient Cognition Impaired: No Ability to Follow Directions: Good Speech Pattern: Clear Hallucinations: None Delusions: Not Present Thought Process: Linear Thought Content: positive for Intact Judgement: Fair Diagnostics Vital Signs (24Hr): Vital Signs - 24 hr 05/03/21 16:12 05/03/21 18:00 05/04/21 06:00 Temperature 97.5 F 97 F Pulse Rate 74 72 81 Respiratory Rate 16 Blood Pressure 132/67 142/69 H 131/60 Pulse Oximetry 95 95 05/04/21 07:09 05/04/21 08:15 05/04/21 08:50 Temperature 97.2 F 96.8 F 97 F Pulse Rate 81 81 73 Respiratory Rate 12 20 20 Blood Pressure 131/60 149/87 H 131/78 Pulse Oximetry 95 96 94 05/04/21 08:55 05/04/21 09:00 05/04/21 09:05 Temperature Pulse Rate 85 88 83 Respiratory Rate 16 16 19 Blood Pressure 145/74 H 145/62 H 135/68 Pulse Oximetry 95 95 95 05/04/21 09:20 05/04/21 09:35 05/04/21 10:23 Temperature 97 F 97.7 F Pulse Rate 78 75 70 Respiratory Rate 18 16 15 Blood Pressure 138/73 149/65 H 135/70 Pulse Oximetry 97 95 96 05/04/21 10:49 Temperature Pulse Rate 70 Respiratory Rate Blood Pressure 135/70 Pulse Oximetry Body Mass Index 37.8 Labs Results: 05/02/21 15:23 05/01/21 17:40 Labs: Laboratory Results - last 48 hr 05/02/21 05/02/21 05/03/21 15:23 21:06 07:47 WBC 23.8 H RBC 5.19 Hgb 13.4 Hct 42.8 MCV 82.5 MCH 25.8 L MCHC 31.3 RDW 15.7 Plt Count 273 MPV 12.0 Immature Gran % (Auto) 0.2 Neut % (Auto) 23.1 L Lymph % (Auto) 72.1 H Liberty % (Auto) 3.5 Eos % (Auto) 0.8 Baso % (Auto) 0.3 Lymph # (Auto) 17.2 H [place] # (Auto) 0.8 Eos # (Auto) 0.2 Baso # (Auto) 0.1 Abs Immat Gran (auto) 0.04 H Absolute Neuts (auto) 5.5 Absolute Nucleated RBC 0.040 H Nucleated RBC % (auto) 0.2 Smear Tech's Comments VERIFIED POC Glucose 92 Estimat Average Glucose Hemoglobin A1c % Triglycerides 151 Cholesterol 174 LDL Cholesterol, Calc 102 HDL Cholesterol 42 25-OH Vitamin D Total TSH 05/03/21 05/03/21 05/03/21 07:47 07:47 07:47 WBC RBC Hgb Hct MCV MCH MCHC RDW Plt Count MPV Immature Gran % (Auto) Neut % (Auto) Lymph % (Auto) Liberty % (Auto) Eos % (Auto) Baso % (Auto) Lymph # (Auto) Liberty # (Auto) Eos # (Auto) Baso # (Auto) Abs Immat Gran (auto) Absolute Neuts (auto) Absolute Nucleated RBC Nucleated RBC % (auto) Smear Tech's Comments POC Glucose Estimat Average Glucose 117 Hemoglobin A1c % 5.7 Triglycerides Cholesterol LDL Cholesterol, Calc HDL Cholesterol 25-OH Vitamin D Total 30.8 TSH 0.49 Imaging Radiology Impressions: ITS Impressions Chest X-Ray 05/01/21 18:14 IMPRESSION: Unremarkable chest examination. Medications Medications Current Medications Generic Name Dose Route Start Last Admin Trade Name Freq PRN Reason Stop Dose Admin Acetaminophen 650 mg 05/01/21 23:45 05/04/21 10:49 Acetaminophen 325 Mg Tablet PO 650 mg Q6H PRN Administration Headache/Pain Mild Scale (1-3) Al Hydroxide/Mg Hydroxide 30 ml 05/01/21 23:45 Magnesium Hydrox/Alum Hydrox 30 Ml Oral.Susp PO Q6H PRN Heartburn/Nausea Amlodipine Besylate 5 mg 05/02/21 09:00 05/04/21 10:49 Amlodipine Besylate 5 Mg Tablet PO 5 mg DAILY XAVI Administration Protocol Apixaban 5 mg 05/02/21 09:00 05/04/21 10:50 Apixaban 5 Mg Tablet PO 5 mg BID XAVI Administration Atorvastatin Calcium 80 mg 05/02/21 09:00 05/04/21 10:49 Atorvastatin Calcium 80 Mg Tablet PO 80 mg DAILY XAVI Administration Dicyclomine HCl 20 mg 05/02/21 09:00 05/04/21 10:52 Dicyclomine Hcl 10 Mg Capsule PO Not Given TID [facility] Lactated Ringer's 1,000 mls @ 50 mls/hr 05/04/21 09:00 05/04/21 09:35 Lr IVCONT Infused .Q20H XAVI Infusion Levothyroxine Sodium 100 mcg 05/02/21 06:30 05/04/21 11:04 Levothyroxine Sodium 100 Mcg Tablet PO 100 mcg DAILY@0630 XAVI Administration Loperamide HCl 2 mg 05/01/21 23:45 Loperamide Hcl 2 Mg Capsule PO DAILY PRN Diarrhea Lorazepam 0.25 mg 05/01/21 23:45 05/04/21 10:48 Lorazepam 0.5 Mg Tablet PO 0.25 mg DAILY PRN Administration Anxiety Lorazepam 0.5 mg 05/01/21 23:45 05/02/21 20:15 Lorazepam 0.5 Mg Tablet PO 0.5 mg BEDTIME PRN Administration Anxiety Magnesium Hydroxide 30 ml 05/01/21 23:45 Milk Of Magnesia 30 Ml Oral.Susp PO DAILY PRN Constipation Metformin HCl 500 mg 05/02/21 09:00 05/04/21 10:52 Metformin Hcl Er 500 Mg Tab.Er.24h PO Not Given DAILY [facility] Metoprolol Succinate 50 mg 05/04/21 09:00 05/04/21 10:49 Metoprolol Succinate Er 50 Mg Tab.Er.24h PO 50 mg DAILY [facility] Administration Protocol Non-Formulary Medication 50 mg 05/02/21 09:00 Desvenlafaxine Succinate PO DAILY [facility] Non-Formulary Medication 1 gm 05/01/21 23:45 Diclofenac Sodium TOPICAL QID PRN joint pain Omeprazole 20 mg 05/03/21 17:30 05/04/21 10:50 Omeprazole 20 Mg Capsule.Dr PO 20 mg BID@0630,1630 [facility] Administration Ondansetron HCl 4 mg 05/02/21 06:08 05/03/21 18:09 Ondansetron Odt 4 Mg Tab.Rapdis TRANSLINGU 4 mg Q8H PRN Administration Nausea and Vomiting Pharmacy Consult 1 each 05/01/21 16:40 Consult Rx Perform Med Rec MISCELLANE ONCE PRN Consult order Trazodone HCl 50 mg 05/01/21 23:45 05/03/21 21:15 Trazodone Hcl 50 Mg Tablet PO 50 mg BEDTIME PRN Administration Insomnia Venlafaxine HCl 150 mg 05/04/21 09:00 05/04/21 10:50 Venlafaxine Hcl Er 150 Mg Cap.Er.24h PO 150 mg DAILY XAVI Administration Allergies Allergies Allergy/AdvReac Type Severity Reaction Status Date / Time hornet venom [HORNETS] Allergy Unknown UNKNOWN Verified 12/28/20 13:03 morphine [MORPHINE] Allergy Unknown UNKNOWN Verified 12/28/20 13:03 tetracycline [TETRACYCLINE] Allergy Unknown UNKNOWN Verified 12/28/20 13:03 aspirin AdvReac Unknown nose bleeds Verified 12/28/20 13:04 Assessment & Plan Assessment & Plan (1) Preoperative cardiovascular examination: Status: Acute Code(s): Z01.810 - Encounter for preprocedural cardiovascular examination Assessment and Plan: Pre ECT cardiovascular examination elderly woman with known history of atrial fibrillation, currently rate control atrial fibrillation without any symptoms of angina or any signs of cardiac decompensation. Clinically she is doing well. She has good physical capacity. At current time I do not think patient is at unduly high risk for any cardiovascular events after ECT. Expect that could be slightly fast heart rate with ECT in patients with atrial fibrillation. This can be easily managed with short-acting IV Cardizem or esmolol in the perioperative. If needed. Meanwhile will increase metoprolol to 50 mg daily, will give additional 25 mg dose tonight. EKG post ECT to be performed. (2) Atrial fibrillation: Status: Acute Code(s): I48.91 - Unspecified atrial fibrillation Assessment and Plan: Atrial fibrillation as above persistent, currently without any symptoms, or signs of cardiac decompensation. Continue rate control approach for now. Increase metoprolol to 50 mg daily. Continue full oral anticoagulation, currently on Eliquis 5 mg b.i.d.. Continue aggressive blood pressure control. Will set up for followup as outpatient was discharged from [facility] in to 2-[address] Alanis (3) MDD (major depressive disorder), recurrent episode, severe: Status: Acute Code(s): F33.2 - Major depressive disorder, recurrent severe without psychotic features Assessment and Plan: Elderly female with MDD that has failed to several medication trials and historically, she improved with ECT. Now, admitted for treatment. Plan: Keep same treatment. ECT on Friday. Greater than 50% of the session was spent on counseling and/or coordination of care Reason for contiued inpatient stay Substantial Risk for: inability to function, rapid decompensation and med/psych decompensation
--- NOTE | 2021-05-04 15:22 | MHC.CLN ---
Addendum entered by Madelyn Jesus, CARLOS 05/04/21 15:24: PATIENT WITH NEUTROPENIA DUE TO LEUKOCYTOSIS. PER MD, NO NEUTROPENIC PRECAUTIONS AT THIS TIME. Original Note: NUTRITION FOLLOW UP REGULAR DIET RESUMED POST ECT. VISITED PATIENT AND STATED THAT IS FEELING BETTER. WOULD LIKE TO TRY ENSURE CLEAR AND ADDED TO DIET ORDER.
[2021-05-04] MEDS: traZODone HCL 50 MG TABLET PO (21:45)
[2021-05-05 06:00] VITALS: BP 148/60; PULSE 78; TEMP 36.9; O2SAT 98
[2021-05-05] MEDS: Atorvastatin Calcium 80 MG TABLET PO (08:13)
[2021-05-05] MEDS: Venlafaxine HCl ER 150 MG CAP.ER.24H PO (08:13)
[2021-05-05] MEDS: Omeprazole 20 MG CAPSULE.DR PO ×2 (08:14→16:55)
[2021-05-05] MEDS: Apixaban 5 MG TABLET PO ×2 (08:14→21:34)
[2021-05-05] MEDS: Metoprolol Succinate ER 50 MG TAB.ER.24H PO (08:14)
[2021-05-05] MEDS: Levothyroxine Sodium 100 MCG TABLET PO (08:14)
[2021-05-05] MEDS: amLODIPine Besylate 5 MG TABLET PO (08:14)
[2021-05-05 17:42] VITALS: BP 116/65; PULSE 73; TEMP 36.9; O2SAT 96
--- NOTE | 2021-05-05 20:45 | HO.PSYCHPN ---
Subjective Subjective Date of Service: 05/05/21 Reason For Visit: Depression Interim History: reports feeling her spirit feels a little bit later. She is hopeful it this is a good sign that ECT will be effective, having received her 1st treatment yesterday. Reports that depression has robbed her of many things in her life personally, relationships and also describes shame and who she can tell about her depression. No side effects from ECT except for mild headache. Is hopeful of nausea will lessen from what she has experienced over the previous 6 weeks. Did discuss tennis as she was watching the [employer] open and previously was a tennis teacher. Medication Compliance: Yes Side effects from medications: No Review of Systems Review of Systems Unremarkable Mental Status Exam Mental Status Exam Narrative: casually dressed. Pleasant. Engage. No cognitive issues noted. Normal speech. Is depressed and anxious. No SI. No HI. No agitation. No psychosis. Insight and judgment appears fair Diagnostics Vital Signs (24Hr): Vital Signs - 24 hr 05/05/21 06:00 05/05/21 17:42 Temperature 98.4 F 98.4 F Pulse Rate 78 73 Blood Pressure 148/60 H 116/65 Pulse Oximetry 98 96 Body Mass Index 37.8 Labs Results: 05/02/21 15:23 05/01/21 17:40 Imaging Radiology Impressions: ITS Impressions Chest X-Ray 05/01/21 18:14 IMPRESSION: Unremarkable chest examination. Medications Medications Current Medications Generic Name Dose Route Start Last Admin Trade Name Freq PRN Reason Stop Dose Admin Acetaminophen 650 mg 05/01/21 23:45 05/04/21 21:37 Acetaminophen 325 Mg Tablet PO 650 mg Q6H PRN Administration Headache/Pain Mild Scale (1-3) Al Hydroxide/Mg Hydroxide 30 ml 05/01/21 23:45 Magnesium Hydrox/Alum Hydrox 30 Ml Oral.Susp PO Q6H PRN Heartburn/Nausea Amlodipine Besylate 5 mg 05/02/21 09:00 05/05/21 08:14 Amlodipine Besylate 5 Mg Tablet PO 5 mg DAILY XAVI Administration Protocol Apixaban 5 mg 05/02/21 09:00 05/05/21 08:14 Apixaban 5 Mg Tablet PO 5 mg BID XAVI Administration Atorvastatin Calcium 80 mg 05/02/21 09:00 05/05/21 08:13 Atorvastatin Calcium 80 Mg Tablet PO 80 mg DAILY XAVI Administration Dicyclomine HCl 20 mg 05/02/21 09:00 05/05/21 20:11 Dicyclomine Hcl 10 Mg Capsule PO Not Given TID XAVI Levothyroxine Sodium 100 mcg 05/02/21 06:30 05/05/21 08:14 Levothyroxine Sodium 100 Mcg Tablet PO 100 mcg DAILY@0630 XAVI Administration Loperamide HCl 2 mg 05/01/21 23:45 Loperamide Hcl 2 Mg Capsule PO DAILY PRN Diarrhea Lorazepam 0.25 mg 05/01/21 23:45 05/04/21 10:48 Lorazepam 0.5 Mg Tablet PO 0.25 mg DAILY PRN Administration Anxiety Lorazepam 0.5 mg 05/01/21 23:45 05/02/21 20:15 Lorazepam 0.5 Mg Tablet PO 0.5 mg BEDTIME PRN Administration Anxiety Magnesium Hydroxide 30 ml 05/01/21 23:45 Milk Of Magnesia 30 Ml Oral.Susp PO DAILY PRN Constipation Metformin HCl 500 mg 05/02/21 09:00 05/05/21 09:54 Metformin Hcl Er 500 Mg Tab.Er.24h PO Not Given DAILY [facility] Metoprolol Succinate 50 mg 05/04/21 09:00 05/05/21 08:14 Metoprolol Succinate Er 50 Mg Tab.Er.24h PO 50 mg DAILY XAVI Administration Protocol Non-Formulary Medication 50 mg 05/02/21 09:00 Desvenlafaxine Succinate PO DAILY [facility] Non-Formulary Medication 1 gm 05/01/21 23:45 Diclofenac Sodium TOPICAL QID PRN joint pain Omeprazole 20 mg 05/03/21 17:30 05/05/21 16:55 Omeprazole 20 Mg Capsule.Dr PO 20 mg BID@0630,1630 [facility] Administration Ondansetron HCl 4 mg 05/02/21 06:08 05/05/21 01:15 Ondansetron Odt 4 Mg Tab.Rapdis TRANSLINGU 4 mg Q8H PRN Administration Nausea and Vomiting Pharmacy Consult 1 each 05/01/21 16:40 Consult Rx Perform Med Rec MISCELLANE ONCE PRN Consult order Trazodone HCl 50 mg 05/01/21 23:45 05/04/21 21:45 Trazodone Hcl 50 Mg Tablet PO 50 mg BEDTIME PRN Administration Insomnia Venlafaxine HCl 150 mg 05/04/21 09:00 05/05/21 08:13 Venlafaxine Hcl Er 150 Mg Cap.Er.24h PO 150 mg DAILY XAVI Administration Allergies Allergies Allergy/AdvReac Type Severity Reaction Status Date / Time hornet venom [HORNETS] Allergy Unknown UNKNOWN Verified 12/28/20 13:03 morphine [MORPHINE] Allergy Unknown UNKNOWN Verified 12/28/20 13:03 tetracycline [TETRACYCLINE] Allergy Unknown UNKNOWN Verified 12/28/20 13:03 aspirin AdvReac Unknown nose bleeds Verified 12/28/20 13:04 Assessment & Plan Assessment & Plan (1) Preoperative cardiovascular examination: Status: Acute Code(s): Z01.810 - Encounter for preprocedural cardiovascular examination Assessment and Plan: Pre ECT cardiovascular examination elderly woman with known history of atrial fibrillation, currently rate control atrial fibrillation without any symptoms of angina or any signs of cardiac decompensation. Clinically she is doing well. She has good physical capacity. At current time I do not think patient is at unduly high risk for any cardiovascular events after ECT. Expect that could be slightly fast heart rate with ECT in patients with atrial fibrillation. This can be easily managed with short-acting IV Cardizem or esmolol in the perioperative. If needed. Meanwhile will increase metoprolol to 50 mg daily, will give additional 25 mg dose tonight. EKG post ECT to be performed. (2) Atrial fibrillation: Status: Acute Code(s): I48.91 - Unspecified atrial fibrillation Assessment and Plan: Atrial fibrillation as above persistent, currently without any symptoms, or signs of cardiac decompensation. Continue rate control approach for now. Increase metoprolol to 50 mg daily. Continue full oral anticoagulation, currently on Eliquis 5 mg b.i.d.. Continue aggressive blood pressure control. Will set up for followup as outpatient was discharged from Behavioral Unit in to 2-[address] Alanis (3) MDD (major depressive disorder), recurrent episode, severe: Status: Acute Code(s): F33.2 - Major depressive disorder, recurrent severe without psychotic features Assessment and Plan: Elderly female with MDD that has failed to several medication trials and historically, she improved with ECT. Now, admitted for treatment. Plan: Keep same treatment, 2nd ECT session on Friday05/07/2021. Greater than 50% of the session was spent on counseling and/or coordination of care Reason for contiued inpatient stay Substantial Risk for: inability to function and med/psych decompensation
[2021-05-05] MEDS: traZODone HCL 50 MG TABLET PO (21:34)
[2021-05-06 06:00] VITALS: BP 103/64; PULSE 79; O2SAT 98
[2021-05-06] MEDS: Levothyroxine Sodium 100 MCG TABLET PO (06:12)
[2021-05-06] MEDS: Omeprazole 20 MG CAPSULE.DR PO ×2 (06:13→16:35)
[2021-05-06 08:42] VITALS: BP 103/64; PULSE 79
[2021-05-06] MEDS: Apixaban 5 MG TABLET PO ×2 (08:42→22:00)
[2021-05-06] MEDS: Dicyclomine HCl 10 MG CAPSULE 20 MG PO (08:42)
[2021-05-06] MEDS: Atorvastatin Calcium 80 MG TABLET PO (08:42)
[2021-05-06] MEDS: Metoprolol Succinate ER 50 MG TAB.ER.24H PO (08:42)
[2021-05-06] MEDS: amLODIPine Besylate 5 MG TABLET PO (08:42)
[2021-05-06] MEDS: metFORMIN HCl ER 500 MG TAB.ER.24H PO (08:42)
[2021-05-06] MEDS: Venlafaxine HCl ER 150 MG CAP.ER.24H PO (08:43)
--- NOTE | 2021-05-06 14:24 | HO.PSYCHPN ---
Subjective Subjective Date of Service: 05/06/21 Reason For Visit: Depression Interim History: Reports being concerned that her mood became low yesterday evening. Is fearful this means she has not progressed as much as she believed. Discussed impart depression has had on her life throughout the years and support provided around same. Also talked about animals and a dog that she has. 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 Is hopeful at she can continue to improve with ECT and in 2 weeks time she will be honored by the historical Society for contributions she has made. Regarding ECT reports that the last time she had it, she did have leg swelling and the Gray stockings were helpful and reports that she is starting to get the same leg swelling this time around. No pain, shortness of breath or chest pain noted. Medication Compliance: Yes Review of Systems Review of Systems Leg swelling. Had same with ECT on a previous course. No shortness of breath, pain or chest pain Mental Status Exam Mental Status Exam Narrative: Pleasant and engaged. Casually dressed. Fair self-care. Anxious. Hopeless at times. No active SI. No HI. No psychosis. Insight and judgment fair Diagnostics Vital Signs (24Hr): Vital Signs - 24 hr 05/05/21 17:42 05/06/21 06:00 05/06/21 08:42 Temperature 98.4 F Pulse Rate 73 79 79 Blood Pressure 116/65 103/64 103/64 Pulse Oximetry 96 98 Body Mass Index 37.8 Labs Results: 05/02/21 15:23 05/01/21 17:40 Imaging Radiology Impressions: ITS Impressions Chest X-Ray 05/01/21 18:14 IMPRESSION: Unremarkable chest examination. Medications Medications Current Medications Generic Name Dose Route Start Last Admin Trade Name Freq PRN Reason Stop Dose Admin Acetaminophen 650 mg 05/01/21 23:45 05/04/21 21:37 Acetaminophen 325 Mg Tablet PO 650 mg Q6H PRN Administration Headache/Pain Mild Scale (1-3) Al Hydroxide/Mg Hydroxide 30 ml 05/01/21 23:45 Magnesium Hydrox/Alum Hydrox 30 Ml Oral.Susp PO Q6H PRN Heartburn/Nausea Amlodipine Besylate 5 mg 05/02/21 09:00 05/06/21 08:42 Amlodipine Besylate 5 Mg Tablet PO 5 mg DAILY XAVI Administration Protocol Apixaban 5 mg 05/02/21 09:00 05/06/21 08:42 Apixaban 5 Mg Tablet PO 5 mg BID XAVI Administration Atorvastatin Calcium 80 mg 05/02/21 09:00 05/06/21 08:42 Atorvastatin Calcium 80 Mg Tablet PO 80 mg DAILY XAVI Administration Dicyclomine HCl 20 mg 05/02/21 09:00 05/06/21 08:42 Dicyclomine Hcl 10 Mg Capsule PO 20 mg TID XAVI Administration Levothyroxine Sodium 100 mcg 05/02/21 06:30 05/06/21 06:12 Levothyroxine Sodium 100 Mcg Tablet PO 100 mcg DAILY@0630 [facility] Administration Loperamide HCl 2 mg 05/01/21 23:45 Loperamide Hcl 2 Mg Capsule PO DAILY PRN Diarrhea Lorazepam 0.25 mg 05/01/21 23:45 05/04/21 10:48 Lorazepam 0.5 Mg Tablet PO 0.25 mg DAILY PRN Administration Anxiety Lorazepam 0.5 mg 05/01/21 23:45 05/02/21 20:15 Lorazepam 0.5 Mg Tablet PO 0.5 mg BEDTIME PRN Administration Anxiety Magnesium Hydroxide 30 ml 05/01/21 23:45 Milk Of Magnesia 30 Ml Oral.Susp PO DAILY PRN Constipation Metformin HCl 500 mg 05/02/21 09:00 05/06/21 08:42 Metformin Hcl Er 500 Mg Tab.Er.24h PO 500 mg DAILY XAVI Administration Metoprolol Succinate 50 mg 05/04/21 09:00 05/06/21 08:42 Metoprolol Succinate Er 50 Mg Tab.Er.24h PO 50 mg DAILY XAVI Administration Protocol Non-Formulary Medication 50 mg 05/02/21 09:00 Desvenlafaxine Succinate PO DAILY [facility] Non-Formulary Medication 1 gm 05/01/21 23:45 Diclofenac Sodium TOPICAL QID PRN joint pain Omeprazole 20 mg 05/03/21 17:30 05/06/21 06:13 Omeprazole 20 Mg Capsule.Dr PO 20 mg BID@0630,1630 [facility] Administration Ondansetron HCl 4 mg 05/02/21 06:08 05/05/21 01:15 Ondansetron Odt 4 Mg Tab.Rapdis TRANSLINGU 4 mg Q8H PRN Administration Nausea and Vomiting Pharmacy Consult 1 each 05/01/21 16:40 Consult Rx Perform Med Rec MISCELLANE ONCE PRN Consult order Trazodone HCl 50 mg 05/01/21 23:45 05/05/21 21:34 Trazodone Hcl 50 Mg Tablet PO 50 mg BEDTIME PRN Administration Insomnia Venlafaxine HCl 150 mg 05/04/21 09:00 05/06/21 08:43 Venlafaxine Hcl Er 150 Mg Cap.Er.24h PO 150 mg DAILY XAVI Administration Allergies Allergies Allergy/AdvReac Type Severity Reaction Status Date / Time hornet venom [HORNETS] Allergy Unknown UNKNOWN Verified 12/28/20 13:03 morphine [MORPHINE] Allergy Unknown UNKNOWN Verified 12/28/20 13:03 tetracycline [TETRACYCLINE] Allergy Unknown UNKNOWN Verified 12/28/20 13:03 aspirin AdvReac Unknown nose bleeds Verified 12/28/20 13:04 Assessment & Plan Assessment & Plan (1) Preoperative cardiovascular examination: Status: Acute Code(s): Z01.810 - Encounter for preprocedural cardiovascular examination Assessment and Plan: Pre ECT cardiovascular examination elderly woman with known history of atrial fibrillation, currently rate control atrial fibrillation without any symptoms of angina or any signs of cardiac decompensation. Clinically she is doing well. She has good physical capacity. At current time I do not think patient is at unduly high risk for any cardiovascular events after ECT. Expect that could be slightly fast heart rate with ECT in patients with atrial fibrillation. This can be easily managed with short-acting IV Cardizem or esmolol in the perioperative. If needed. Meanwhile will increase metoprolol to 50 mg daily, will give additional 25 mg dose tonight. EKG post ECT to be performed. (2) Atrial fibrillation: Status: Acute Code(s): I48.91 - Unspecified atrial fibrillation Assessment and Plan: Atrial fibrillation as above persistent, currently without any symptoms, or signs of cardiac decompensation. Continue rate control approach for now. Increase metoprolol to 50 mg daily. Continue full oral anticoagulation, currently on Eliquis 5 mg b.i.d.. Continue aggressive blood pressure control. Will set up for followup as outpatient was [facility] in to 2-[address] Alanis (3) MDD (major depressive disorder), recurrent episode, severe: Status: Acute Code(s): F33.2 - Major depressive disorder, recurrent severe without psychotic features Assessment and Plan: Elderly female with MDD that has failed to several medication trials and historically, she improved with ECT. Now, admitted for treatment. Plan: Keep same treatment, 2nd ECT session on Friday05/07/2021. He did report having leg swelling with prior courses of ECT and experiencing this again. This resolved with Gray stockings in the past and will therefore order same. Greater than 50% of the session was spent on counseling and/or coordination of care Reason for contiued inpatient stay Substantial Risk for: inability to function
[2021-05-06] MEDS: traZODone HCL 50 MG TABLET PO (22:04)
[2021-05-07] VITALS (14 sets, daily range): BP systolic 109–155; BP diastolic 52–90; PULSE 80–96; RESP 15–21; TEMP 36–36.7; O2SAT 94–96
--- NOTE | 2021-05-07 | ECG_ITS ---
Test Reason : F/U POST ECT Blood Pressure : / mmHG Vent. Rate : 077 BPM Atrial Rate : 300 BPM P-R Int : 000 ms QRS Dur : 092 ms QT Int : 380 ms P-R-T Axes : 000 003 008 degrees QTc Int : 430 ms Atrial fibrillation Inferior infarct , age undetermined Abnormal ECG When compared with ECG of 04-MAY-2021 11:43, No significant changes seen Referred By: Rogerio Sinclair Electronically Signed By:MAURICIO QUEEN
--- NOTE | 2021-05-07 07:02 | HO.ECTPROC ---
ECT Procedure Note Diagnosis/Treatment Date of Service: 05/07/21 Diagnosis: Major Depressive Disorder Previous ECT Date: 05/04/21 Current Treatment Number: 2 Treatment: Series Interval Clinical Notes: The patient reported still depression, but less anxious; no side effects with the last ECT. ECT Settings Device: THYMATRON DGx Electrode Placement: Right Unilateral Program/Pulse Width: 0.25 Energy Percent: 40 Seizure Duration By EEG (in seconds): 40 By Motor Observation (in seconds): 12 Medications Administration General Anesthetic: Etomidate (14) Muscle Relaxant: Succinylcholine (100) Ancillary Medications Analgesics: Torodol - Pre ECT Anti-emetics: Zofran - Pre ECT Cardiovascular Medications: Esmolol (5 mg pre ECT) Airway Management Airway Management: Bag Mask Ventilation Treatment Recommendations No Changes Recommended: No change Pt Tolerated Procedure w/o Issue: Yes
--- NOTE | 2021-05-07 08:25 | P.CONAN_ITS ---
FORMERLY [facility], [facility] Active Problems Active Problems: All Active Problems (Updated 05/03/21 @ 15:58 by Oscar Mcneill MD) Atrial fibrillation (Acute) Preoperative cardiovascular examination (Acute) MDD (major depressive disorder), recurrent episode, severe (Acute) Lymphoblastic leukemia (Acute) Depression (Acute) Essential hypertension (Acute) PAF (paroxysmal atrial fibrillation) (Acute) Past Medical History Medical History Essential hypertension High cholesterol Hypothyroidism PAF (paroxysmal atrial fibrillation) Family History Family History Father FH: prostate cancer Mother CVD (cardiovascular disease) Surgical History Surgical History No pertinent past surgical history Social History Social History Household Members: None Housing: Other Do you presently have visiting nurse or other home services: No Patient Tobacco Use Status: Never used Tobacco Smoked in Last 30 Days: No Use of substances other than those prescribed or required for medical reasons: No Currently Displaying Signs/Symptoms of Drug Intoxication Withdrawal: No Any prior treatment program specific to substance use: No Have you been hit, kicked, punched, or otherwise hurt by someone within the past year? If so, by whom?: No Do you feel safe in your current relationship?: No Is there a partner from a previous relationship who is making you feel unsafe now?: No Are you made to feel afraid or neglected: No [employer] Healthcare Practices: [employer] Are you DNR?: No Advance Directives: No Advance Directives Information Provided: Yes Advance Directives on File: Yes Healthcare Proxy: Yes Guardian: No Do you have thoughts of harming others: None Do you have a plan to hurt others: No Plan Recently lost weight without trying: Yes How much weight loss: 14-23 pounds Eating poorly because of decreased appetite: Yes Nutrition screen score: 5 Nutrition Risks: Acute nausea or vomiting x1 week Patient : No : No Poor oral hygiene: No service: No Meds Allergies Allergy/AdvReac Type Severity Reaction Status Date / Time hornet venom [HORNETS] Allergy Unknown UNKNOWN Verified 12/28/20 13:03 morphine [MORPHINE] Allergy Unknown UNKNOWN Verified 12/28/20 13:03 tetracycline [TETRACYCLINE] Allergy Unknown UNKNOWN Verified 12/28/20 13:03 aspirin AdvReac Unknown nose bleeds Verified 12/28/20 13:04 Active Medications: Current Medications Generic Name Dose Route Start Last Admin Trade Name Freq PRN Reason Stop Dose Admin Acetaminophen 650 mg 05/01/21 23:45 05/04/21 21:37 Acetaminophen 325 Mg Tablet PO 650 mg Q6H PRN Administration Headache/Pain Mild Scale (1-3) Al Hydroxide/Mg Hydroxide 30 ml 05/01/21 23:45 Magnesium Hydrox/Alum Hydrox 30 Ml Oral.Susp PO Q6H PRN Heartburn/Nausea Amlodipine Besylate 5 mg 05/02/21 09:00 05/06/21 08:42 Amlodipine Besylate 5 Mg Tablet PO 5 mg DAILY [facility] Administration Protocol Apixaban 5 mg 05/02/21 09:00 05/06/21 22:00 Apixaban 5 Mg Tablet PO 5 mg BID XAVI Administration Atorvastatin Calcium 80 mg 05/02/21 09:00 05/06/21 08:42 Atorvastatin Calcium 80 Mg Tablet PO 80 mg DAILY XAVI Administration Dicyclomine HCl 20 mg 05/02/21 09:00 05/06/21 21:53 Dicyclomine Hcl 10 Mg Capsule PO Not Given TID [facility] Levothyroxine Sodium 100 mcg 05/02/21 06:30 05/06/21 06:12 Levothyroxine Sodium 100 Mcg Tablet PO 100 mcg DAILY@0630 [facility] Administration Loperamide HCl 2 mg 05/01/21 23:45 Loperamide Hcl 2 Mg Capsule PO DAILY PRN Diarrhea Magnesium Hydroxide 30 ml 05/01/21 23:45 Milk Of Magnesia 30 Ml Oral.Susp PO DAILY PRN Constipation Metformin HCl 500 mg 05/02/21 09:00 05/06/21 08:42 Metformin Hcl Er 500 Mg Tab.Er.24h PO 500 mg DAILY XAVI Administration Metoprolol Succinate 50 mg 05/04/21 09:00 05/06/21 08:42 Metoprolol Succinate Er 50 Mg Tab.Er.24h PO 50 mg DAILY XAVI Administration Protocol Non-Formulary Medication 50 mg 05/02/21 09:00 Desvenlafaxine Succinate PO DAILY [facility] Non-Formulary Medication 1 gm 05/01/21 23:45 Diclofenac Sodium TOPICAL QID PRN joint pain Omeprazole 20 mg 05/03/21 17:30 05/06/21 16:35 Omeprazole 20 Mg Capsule. PO 20 mg BID@0520,8490 XAVI Administration Ondansetron HCl 4 mg 05/02/21 06:08 05/05/21 01:15 Ondansetron Odt 4 Mg Tab.Rapdis TRANSLINGU 4 mg Q8H PRN Administration Nausea and Vomiting Pharmacy Consult 1 each 05/01/21 16:40 Consult Rx Perform Med Rec MISCELLANE ONCE PRN Consult order Trazodone HCl 50 mg 05/01/21 23:45 05/06/21 22:04 Trazodone Hcl 50 Mg Tablet PO 50 mg BEDTIME PRN Administration Insomnia Venlafaxine HCl 150 mg 05/04/21 09:00 05/06/21 08:43 Venlafaxine Hcl Er 150 Mg Cap.Er.24h PO 150 mg DAILY XAVI Administration Home Medications Medication Instructions Recorded Confirmed Last Taken Type desvenlafaxine succinate 50 mg 50 mg PO DAILY 12/28/20 05/01/21 Unknown History tablet,extended release 24 hr diclofenac sodium 1 % topical gel 1 g TOPICAL QID PRN 12/28/20 05/01/21 Unknown History dicyclomine 20 mg tablet 20 mg PO TID 12/28/20 05/01/21 05/01/21 History loperamide 2 mg capsule 2 mg PO DAILY PRN 12/28/20 05/01/21 Unknown History atorvastatin 80 mg PO DAILY 05/01/21 05/01/21 05/01/21 History levothyroxine 100 mcg PO DAILY 05/01/21 05/01/21 05/01/21 History lorazepam [Ativan] 0.25 mg PO DAILY PRN 05/01/21 05/01/21 Unknown History lorazepam [Ativan] 0.5 mg PO BEDTIME PRN 05/01/21 05/01/21 Unknown History metformin 500 mg PO DAILY 05/01/21 05/01/21 Unknown History Exam Exam Date and Time: May 07, [id number] Height,Weight and Vital Signs: Height 5 ft 4 in Weight 100 kg Last Vital Signs Temp 96.8 F 05/07/21 07:05 Pulse 83 05/07/21 07:05 Resp 16 05/07/21 07:05 BP 109/59 L 05/07/21 07:05 Pulse Ox 96 05/07/21 07:05 Pertinent Lab Results Pertinent Lab Results: Laboratory Tests 05/01/21 05/01/21 05/01/21 17:40 17:40 18:25 WBC 27.1 H RBC 5.36 Hgb 13.6 Hct 43.9 MCV 81.9 MCH 25.4 L MCHC 31.0 RDW 15.7 Plt Count 273 MPV 11.9 Immature Gran % (Auto) Cancelled Neut % (Auto) Cancelled Lymph % (Auto) Cancelled [place] % (Auto) Cancelled Eos % (Auto) Cancelled Baso % (Auto) Cancelled Lymph # (Auto) Cancelled [place] # (Auto) Cancelled Eos # (Auto) Cancelled Baso # (Auto) Cancelled Abs Immat Gran (auto) Cancelled Absolute Neuts (auto) Cancelled Absolute Nucleated RBC 0.000 Nucleated RBC % (auto) 0.0 Neutrophils % (Manual) 17 L Band Neutrophils % 1 L Lymphocytes % (Manual) 20 Atypical Lymphs % (Man) 57 H Monocytes % (Manual) 5 Abs Neuts (Manual) 4.9 Lymphocytes # (Manual) 5.4 H Atyp Lymphs # (Manual) 15.4 Monocytes # (Manual) 1.4 H Platelet Estimate NORMAL Large Platelets PRESENT Plt Morphology Comment NOTED RBC Morphology NOTED Stomatocytes 1+ (5-14) Smear Tech's Comments MANUAL DIFF Smear Path Review SEE NOTE Sodium 144 Potassium 4.0 Chloride 111 H Carbon Dioxide 23 Anion Gap 14 BUN 13 Creatinine 0.74 Estim Creat Clear Calc 79.0 Estimated GFR > 60 POC Glucose Random Glucose 95 Estimat Average Glucose Hemoglobin A1c % Calcium 9.7 Total Bilirubin 0.7 Direct Bilirubin 0.2 AST 19 ALT 14 Alkaline Phosphatase 94 Total Protein 6.9 Albumin 4.3 Triglycerides Cholesterol LDL Cholesterol, Calc HDL Cholesterol 25-OH Vitamin D Total TSH Urine Color Urine Appearance Urine pH Ur Specific [place] Urine Protein Urine Glucose (UA) Urine Ketones Urine Blood Urine Nitrite Ur Leukocyte Esterase Urine Opiates Screen Ur Barbiturates Screen Ur Phencyclidine Scrn Ur Amphetamines Screen U Benzodiazepines Scrn Urine Cocaine Screen U Marijuana (THC) Screen COVID-19 ([facility]) Negative COVID-19 Clin Com See Note 05/01/21 05/01/21 05/02/21 19:24 19:24 15:23 WBC 23.8 H RBC 5.19 Hgb 13.4 Hct 42.8 MCV 82.5 MCH 25.8 L MCHC 31.3 RDW 15.7 Plt Count 273 MPV 12.0 Immature Gran % (Auto) 0.2 Neut % (Auto) 23.1 L Lymph % (Auto) 72.1 H [place] % (Auto) 3.5 Eos % (Auto) 0.8 Baso % (Auto) 0.3 Lymph # (Auto) 17.2 H [place] # (Auto) 0.8 Eos # (Auto) 0.2 Baso # (Auto) 0.1 Abs Immat Gran (auto) 0.04 H Absolute Neuts (auto) 5.5 Absolute Nucleated RBC 0.040 H Nucleated RBC % (auto) 0.2 Neutrophils % (Manual) Band Neutrophils % Lymphocytes % (Manual) Atypical Lymphs % (Man) Monocytes % (Manual) Abs Neuts (Manual) Lymphocytes # (Manual) Atyp Lymphs # (Manual) Monocytes # (Manual) Platelet Estimate Large Platelets Plt Morphology Comment RBC Morphology Stomatocytes Smear Tech's Comments VERIFIED Smear Path Review Sodium Potassium Chloride Carbon Dioxide Anion Gap BUN Creatinine Estim Creat Clear Calc Estimated GFR POC Glucose Random Glucose Estimat Average Glucose Hemoglobin A1c % Calcium Total Bilirubin Direct Bilirubin AST ALT Alkaline Phosphatase Total Protein Albumin Triglycerides Cholesterol LDL Cholesterol, Calc HDL Cholesterol 25-OH Vitamin D Total TSH Urine Color YELLOW Urine Appearance HAZY Urine pH 6.0 Ur Specific [place] >= 1.030 H Urine Protein NEG Urine Glucose (UA) NEG Urine Ketones NEG Urine Blood NEG Urine Nitrite NEG Ur Leukocyte Esterase NEG Urine Opiates Screen Not Detected Ur Barbiturates Screen Not Detected Ur Phencyclidine Scrn Not Detected Ur Amphetamines Screen Not Detected U Benzodiazepines Scrn Not Detected Urine Cocaine Screen Not Detected U Marijuana (THC) Screen Not Detected COVID-19 ([facility]) COVID-19 Clin Com 05/02/21 05/03/21 05/03/21 21:06 07:47 07:47 WBC RBC Hgb Hct MCV MCH MCHC RDW Plt Count MPV Immature Gran % (Auto) Neut % (Auto) Lymph % (Auto) [place] % (Auto) Eos % (Auto) Baso % (Auto) Lymph # (Auto) [place] # (Auto) Eos # (Auto) Baso # (Auto) Abs Immat Gran (auto) Absolute Neuts (auto) Absolute Nucleated RBC Nucleated RBC % (auto) Neutrophils % (Manual) Band Neutrophils % Lymphocytes % (Manual) Atypical Lymphs % (Man) Monocytes % (Manual) Abs Neuts (Manual) Lymphocytes # (Manual) Atyp Lymphs # (Manual) Monocytes # (Manual) Platelet Estimate Large Platelets Plt Morphology Comment RBC Morphology Stomatocytes Smear Tech's Comments Smear Path Review Sodium Potassium Chloride Carbon Dioxide Anion Gap BUN Creatinine Estim Creat Clear Calc Estimated GFR POC Glucose 92 Random Glucose Estimat Average Glucose Hemoglobin A1c % Calcium Total Bilirubin Direct Bilirubin AST ALT Alkaline Phosphatase Total Protein Albumin Triglycerides 151 Cholesterol 174 LDL Cholesterol, Calc 102 HDL Cholesterol 42 25-OH Vitamin D Total TSH 0.49 Urine Color Urine Appearance Urine pH Ur Specific [place] Urine Protein Urine Glucose (UA) Urine Ketones Urine Blood Urine Nitrite Ur Leukocyte Esterase Urine Opiates Screen Ur Barbiturates Screen Ur Phencyclidine Scrn Ur Amphetamines Screen U Benzodiazepines Scrn Urine Cocaine Screen U Marijuana (THC) Screen COVID-19 ([facility]IA) COVID-19 [employer] Com 05/03/21 05/03/21 07:47 07:47 WBC RBC Hgb Hct MCV MCH MCHC RDW Plt Count MPV Immature Gran % (Auto) Neut % (Auto) Lymph % (Auto) [place] % (Auto) Eos % (Auto) Baso % (Auto) Lymph # (Auto) [place] # (Auto) Eos # (Auto) Baso # (Auto) Abs Immat Gran (auto) Absolute Neuts (auto) Absolute Nucleated RBC Nucleated RBC % (auto) Neutrophils % (Manual) Band Neutrophils % Lymphocytes % (Manual) Atypical Lymphs % (Man) Monocytes % (Manual) Abs Neuts (Manual) Lymphocytes # (Manual) Atyp Lymphs # (Manual) Monocytes # (Manual) Platelet Estimate Large Platelets Plt Morphology Comment RBC Morphology Stomatocytes Smear Tech's Comments Smear Path Review Sodium Potassium Chloride Carbon Dioxide Anion Gap BUN Creatinine Estim Creat Clear Calc Estimated GFR POC Glucose Random Glucose Estimat Average Glucose 117 Hemoglobin A1c % 5.7 Calcium Total Bilirubin Direct Bilirubin AST ALT Alkaline Phosphatase Total Protein Albumin Triglycerides Cholesterol LDL Cholesterol, Calc HDL Cholesterol 25-OH Vitamin D Total 30.8 TSH Urine Color Urine Appearance Urine pH Ur Specific [place] Urine Protein Urine Glucose (UA) Urine Ketones Urine Blood Urine Nitrite Ur Leukocyte Esterase Urine Opiates Screen Ur Barbiturates Screen Ur Phencyclidine Scrn Ur Amphetamines Screen U Benzodiazepines Scrn Urine Cocaine Screen U Marijuana (THC) Screen COVID-19 ([facility]) COVID-19 Clin Com Airway Mallampati Class: II TM Dist: >3cm Neck ROM: Full
--- NOTE | 2021-05-07 09:36 | HO.PSYCHPN ---
Subjective Subjective Date of Service: 05/07/21 Reason For Visit: Depression Subjective Notes: Conditional Voluntary Interim History: The patient reported that over the weekend she was dysphoric, she had mild improvement of her mood with the first ECT last Friday but later on Friday, she was feeling worse. Today, she had the ECT at AM without side effects. Medication Compliance: Yes Side effects from medications: No Mental Status Exam Mental Status Exam Patient Appearance: Well Grooomed Patient Orientation: Person, Place, Time and Situation Level of Consciousness: Awake Patient Behavior: Cooperative Mood Description: Calm Affect Description: Constricted Patient Cognition Impaired: No Ability to Follow Directions: Good Speech Pattern: Clear Memory Description: Intact Hallucinations: None Delusions: Not Present Thought Process: Linear Thought Content: positive for Circumstantial and positive for Preoccupation Depressive Symptoms: Increased Anxiety Judgement: Fair Diagnostics Vital Signs (24Hr): Vital Signs - 24 hr 05/07/21 06:08 05/07/21 06:38 05/07/21 07:05 Temperature 96.8 F 97.6 F 96.8 F Pulse Rate 83 90 83 Respiratory Rate 16 16 16 Blood Pressure 109/59 L 136/69 109/59 L Pulse Oximetry 96 96 96 05/07/21 08:28 05/07/21 08:33 05/07/21 08:38 Temperature 97.7 F Pulse Rate 80 84 96 Respiratory Rate 15 20 21 H Blood Pressure 155/90 H 135/72 140/75 H Pulse Oximetry 94 96 96 05/07/21 08:43 05/07/21 08:48 05/07/21 09:03 Temperature 97.2 F Pulse Rate 96 84 84 Respiratory Rate 21 H 19 21 H Blood Pressure 145/76 H 118/52 L Pulse Oximetry 94 94 94 05/07/21 09:18 Temperature Pulse Rate 86 Respiratory Rate 19 Blood Pressure 123/52 L Pulse Oximetry 94 Body Mass Index 37.8 Labs Results: 05/02/21 15:23 05/01/21 17:40 Imaging Radiology Impressions: ITS Impressions Chest X-Ray 05/01/21 18:14 IMPRESSION: Unremarkable chest examination. Medications Medications Current Medications Generic Name Dose Route Start Last Admin Trade Name Freq PRN Reason Stop Dose Admin Acetaminophen 650 mg 05/01/21 23:45 05/04/21 21:37 Acetaminophen 325 Mg Tablet PO 650 mg Q6H PRN Administration Headache/Pain Mild Scale (1-3) Al Hydroxide/Mg Hydroxide 30 ml 05/01/21 23:45 Magnesium Hydrox/Alum Hydrox 30 Ml Oral.Susp PO Q6H PRN Heartburn/Nausea Amlodipine Besylate 5 mg 05/02/21 09:00 05/06/21 08:42 Amlodipine Besylate 5 Mg Tablet PO 5 mg DAILY [facility] Administration Protocol Apixaban 5 mg 05/02/21 09:00 05/06/21 22:00 Apixaban 5 Mg Tablet PO 5 mg BID XAVI Administration Atorvastatin Calcium 80 mg 05/02/21 09:00 05/06/21 08:42 Atorvastatin Calcium 80 Mg Tablet PO 80 mg DAILY [facility] Administration Dicyclomine HCl 20 mg 05/02/21 09:00 05/06/21 21:53 Dicyclomine Hcl 10 Mg Capsule PO Not Given TID [facility] Levothyroxine Sodium 100 mcg 05/02/21 06:30 05/06/21 06:12 Levothyroxine Sodium 100 Mcg Tablet PO 100 mcg DAILY@0630 [facility] Administration Loperamide HCl 2 mg 05/01/21 23:45 Loperamide Hcl 2 Mg Capsule PO DAILY PRN Diarrhea Magnesium Hydroxide 30 ml 05/01/21 23:45 Milk Of Magnesia 30 Ml Oral.Susp PO DAILY PRN Constipation Metformin HCl 500 mg 05/02/21 09:00 05/06/21 08:42 Metformin Hcl Er 500 Mg Tab.Er.24h PO 500 mg DAILY [facility] Administration Metoprolol Succinate 50 mg 05/04/21 09:00 05/06/21 08:42 Metoprolol Succinate Er 50 Mg Tab.Er.24h PO 50 mg DAILY [facility] Administration Protocol Non-Formulary Medication 50 mg 05/02/21 09:00 Desvenlafaxine Succinate PO DAILY [facility] Non-Formulary Medication 1 gm 05/01/21 23:45 Diclofenac Sodium TOPICAL QID PRN joint pain Omeprazole 20 mg 05/03/21 17:30 05/06/21 16:35 Omeprazole 20 Mg Capsule.Dr PO 20 mg BID@0630,1630 [facility] Administration Ondansetron HCl 4 mg 05/02/21 06:08 05/05/21 01:15 Ondansetron Odt 4 Mg Tab.Rapdis TRANSLINGU 4 mg Q8H PRN Administration Nausea and Vomiting Pharmacy Consult 1 each 05/01/21 16:40 Consult Rx Perform Med Rec MISCELLANE ONCE PRN Consult order Trazodone HCl 50 mg 05/01/21 23:45 05/06/21 22:04 Trazodone Hcl 50 Mg Tablet PO 50 mg BEDTIME PRN Administration Insomnia Venlafaxine HCl 150 mg 05/04/21 09:00 05/06/21 08:43 Venlafaxine Hcl Er 150 Mg Cap.Er.24h PO 150 mg DAILY XAVI Administration Allergies Allergies Allergy/AdvReac Type Severity Reaction Status Date / Time hornet venom [HORNETS] Allergy Unknown UNKNOWN Verified 12/28/20 13:03 morphine [MORPHINE] Allergy Unknown UNKNOWN Verified 12/28/20 13:03 tetracycline [TETRACYCLINE] Allergy Unknown UNKNOWN Verified 12/28/20 13:03 aspirin AdvReac Unknown nose bleeds Verified 12/28/20 13:04 Assessment & Plan Assessment & Plan (1) Preoperative cardiovascular examination: Status: Acute Code(s): Z01.810 - Encounter for preprocedural cardiovascular examination Assessment and Plan: Pre ECT cardiovascular examination elderly woman with known history of atrial fibrillation, currently rate control atrial fibrillation without any symptoms of angina or any signs of cardiac decompensation. Clinically she is doing well. She has good physical capacity. At current time I do not think patient is at unduly high risk for any cardiovascular events after ECT. Expect that could be slightly fast heart rate with ECT in patients with atrial fibrillation. This can be easily managed with short-acting IV Cardizem or esmolol in the perioperative. If needed. Meanwhile will increase metoprolol to 50 mg daily, will give additional 25 mg dose tonight. EKG post ECT to be performed. (2) Atrial fibrillation: Status: Acute Code(s): I48.91 - Unspecified atrial fibrillation Assessment and Plan: Atrial fibrillation as above persistent, currently without any symptoms, or signs of cardiac decompensation. Continue rate control approach for now. Increase metoprolol to 50 mg daily. Continue full oral anticoagulation, currently on Eliquis 5 mg b.i.d.. Continue aggressive blood pressure control. Will set up for followup as outpatient was discharged from [facility] in to 2-[address] Alanis (3) MDD (major depressive disorder), recurrent episode, severe: Status: Acute Code(s): F33.2 - Major depressive disorder, recurrent severe without psychotic features Assessment and Plan: Elderly female with MDD that has failed to several medication trials and historically, she improved with ECT. Now, admitted for treatment. Plan: Keep same treatment, 2nd ECT session on Friday05/07/2021. He did report having leg swelling with prior courses of ECT and experiencing this again. This resolved with Gray stockings in the past and will therefore order same. New EKG today to follow-up a-fib Greater than 50% of the session was spent on counseling and/or coordination of care Reason for contiued inpatient stay Substantial Risk for: inability to function, rapid decompensation and med/psych decompensation
[2021-05-07] MEDS: Omeprazole 20 MG CAPSULE.DR PO ×2 (09:49→16:20)
[2021-05-07] MEDS: Metoprolol Succinate ER 50 MG TAB.ER.24H PO (09:49)
[2021-05-07] MEDS: Loperamide HCl 2 MG CAPSULE PO (09:49)
[2021-05-07] MEDS: amLODIPine Besylate 5 MG TABLET PO (09:50)
[2021-05-07] MEDS: Levothyroxine Sodium 100 MCG TABLET PO (09:50)
[2021-05-07] MEDS: Atorvastatin Calcium 80 MG TABLET PO (09:50)
[2021-05-07] MEDS: Apixaban 5 MG TABLET PO ×2 (09:51→22:10)
[2021-05-07] MEDS: Venlafaxine HCl ER 150 MG CAP.ER.24H PO (09:51)
[2021-05-07] MEDS: Acetaminophen 325 MG TABLET 650 MG PO (09:56)
[2021-05-08 06:00] VITALS: BP 124/59; PULSE 77; RESP 18; TEMP 36.9; O2SAT 96
[2021-05-08] MEDS: Omeprazole 20 MG CAPSULE.DR PO ×2 (06:16→16:53)
[2021-05-08] MEDS: Levothyroxine Sodium 100 MCG TABLET PO (06:17)
[2021-05-08 09:51] VITALS: BP 113/72; PULSE 83
[2021-05-08] MEDS: amLODIPine Besylate 5 MG TABLET PO (09:51)
[2021-05-08 09:52] VITALS: BP 113/72; PULSE 83
[2021-05-08] MEDS: Metoprolol Succinate ER 50 MG TAB.ER.24H PO (09:52)
[2021-05-08] MEDS: Atorvastatin Calcium 80 MG TABLET PO (09:52)
[2021-05-08] MEDS: Apixaban 5 MG TABLET PO ×2 (09:53→21:58)
[2021-05-08] MEDS: Magnesium Hydrox/Alum Hydrox 30 ML ORAL.SUSP PO (09:56)
[2021-05-08 11:03] LABS: Anion Gap 15 (12-20); Blood Urea Nitrogen 14 mg/dL (9-16); Calcium 9.5 mg/dL (8.4-10.2); Carbon Dioxide 23 mmol/L (22-29); Chloride 108 mmol/L (96-108); Creatinine Clr Calc Pharmacy 77.9; Estimated Glomerular Filt Rate > 60; Glucose Random 128 mg/dL (60-115); Potassium 4.7 mmol/L (3.3-5.1); Sodium 141 mmol/L (135-145)
--- NOTE | 2021-05-08 11:06 | HO.PSYCHPN ---
Subjective Subjective Date of Service: 05/08/21 Reason For Visit: Depression Subjective Notes: Conditional Voluntary Interim History: The patient reported that she didn't have any side effects after ECT, her mood is still dysphoric but staff reported that she has a brighter affect. She complaints of constipation adn we added carrafate. Medication Compliance: Yes Side effects from medications: No Attending Groups: Yes Review of Systems Acute medical concerns: No Medical Review of Systems: unchanged Mental Status Exam Mental Status Exam Patient Appearance: Well Grooomed Patient Orientation: Person, Place, Time and Situation Level of Consciousness: Awake and Appropriate Patient Behavior: Cooperative and Passive Mood Description: Calm Affect Description: Depressed Patient Cognition Impaired: No Ability to Follow Directions: Good Speech Pattern: Clear Memory Description: Intact Hallucinations: None Delusions: Not Present Thought Process: Slowed Thinking Thought Content: positive for Poverty of Content Depressive Symptoms: Difficulty Sleeping, Feelings of Worthlessness and Feelings of Guilt Judgement: Fair Diagnostics Vital Signs (24Hr): Vital Signs - 24 hr 05/07/21 18:00 05/08/21 06:00 05/08/21 09:51 Temperature 98.4 F Pulse Rate 81 77 83 Respiratory Rate 18 Blood Pressure 140/77 H 124/59 L 113/72 Pulse Oximetry 96 96 05/08/21 09:52 Temperature Pulse Rate 83 Respiratory Rate Blood Pressure 113/72 Pulse Oximetry Body Mass Index 37.8 Labs Results: 05/02/21 15:23 05/08/21 09:25 Labs: Laboratory Results - last 48 hr 05/08/21 09:25 Sodium 141 Potassium 4.7 Chloride 108 Carbon Dioxide 23 Anion Gap 15 BUN 14 Creatinine 0.75 Estim Creat Clear Calc 77.9 Estimated GFR > 60 Random Glucose 128 H Calcium 9.5 Imaging Radiology Impressions: ITS Impressions Chest X-Ray 05/01/21 18:14 IMPRESSION: Unremarkable chest examination. Medications Medications Current Medications Generic Name Dose Route Start Last Admin Trade Name Freq PRN Reason Stop Dose Admin Acetaminophen 650 mg 05/01/21 23:45 05/07/21 09:56 Acetaminophen 325 Mg Tablet PO 650 mg Q6H PRN Administration Headache/Pain Mild Scale (1-3) Al Hydroxide/Mg Hydroxide 30 ml 05/01/21 23:45 05/08/21 09:56 Magnesium Hydrox/Alum Hydrox 30 Ml Oral.Susp PO 30 ml Q6H PRN Administration Heartburn/Nausea Amlodipine Besylate 5 mg 05/02/21 09:00 05/08/21 09:51 Amlodipine Besylate 5 Mg Tablet PO 5 mg DAILY [facility] Administration Protocol Apixaban 5 mg 05/02/21 09:00 05/08/21 09:53 Apixaban 5 Mg Tablet PO 5 mg BID [facility] Administration Atorvastatin Calcium 80 mg 05/02/21 09:00 05/08/21 09:52 Atorvastatin Calcium 80 Mg Tablet PO 80 mg DAILY [facility] [place] Administration Levothyroxine Sodium 100 mcg 05/02/21 06:30 05/08/21 06:17 Levothyroxine Sodium 100 Mcg Tablet PO 100 mcg DAILY@0630 [facility] [place] Administration Loperamide HCl 2 mg 05/01/21 23:45 05/07/21 09:49 Loperamide Hcl 2 Mg Capsule PO 2 mg DAILY PRN Administration Diarrhea Magnesium Hydroxide 30 ml 05/01/21 23:45 Milk Of Magnesia 30 Ml Oral.Susp PO DAILY PRN Constipation Metoprolol Succinate 50 mg 05/04/21 09:00 05/08/21 09:52 Metoprolol Succinate Er 50 Mg Tab.Er.24h PO 50 mg DAILY [facility] [place] Administration Protocol Non-Formulary Medication 50 mg 05/02/21 09:00 Desvenlafaxine Succinate PO DAILY [facility] Non-Formulary Medication 1 gm 05/01/21 23:45 Diclofenac Sodium TOPICAL QID PRN joint pain Omeprazole 20 mg 05/03/21 17:30 05/08/21 06:16 Omeprazole 20 Mg Capsule. PO 20 mg BID@0630,1630 [facility] [place] Administration Ondansetron HCl 4 mg 05/02/21 06:08 05/05/21 01:15 Ondansetron Odt 4 Mg Tab.Rapdis TRANSLINGU 4 mg Q8H PRN Administration Nausea and Vomiting Pharmacy Consult 1 each 05/01/21 16:40 Consult Rx Perform Med Rec MISCELLANE ONCE PRN Consult order Sucralfate 1 gm 05/08/21 11:30 Sucralfate 1 Gm Tablet PO QIDACHS [facility] Trazodone HCl 50 mg 05/01/21 23:45 05/06/21 22:04 Trazodone Hcl 50 Mg Tablet PO 50 mg BEDTIME PRN Administration Insomnia Venlafaxine HCl 150 mg 05/04/21 09:00 05/07/21 09:51 Venlafaxine Hcl Er 150 Mg Cap.Er.24h PO 150 mg DAILY XAVI Administration Allergies Allergies Allergy/AdvReac Type Severity Reaction Status Date / Time hornet venom [HORNETS] Allergy Unknown UNKNOWN Verified 12/28/20 13:03 morphine [MORPHINE] Allergy Unknown UNKNOWN Verified 12/28/20 13:03 tetracycline [TETRACYCLINE] Allergy Unknown UNKNOWN Verified 12/28/20 13:03 aspirin AdvReac Unknown nose bleeds Verified 12/28/20 13:04 Assessment & Plan Assessment & Plan (1) Preoperative cardiovascular examination: Status: Acute Code(s): Z01.810 - Encounter for preprocedural cardiovascular examination Assessment and Plan: Pre ECT cardiovascular examination elderly woman with known history of atrial fibrillation, currently rate control atrial fibrillation without any symptoms of angina or any signs of cardiac decompensation. Clinically she is doing well. She has good physical capacity. At current time I do not think patient is at unduly high risk for any cardiovascular events after ECT. Expect that could be slightly fast heart rate with ECT in patients with atrial fibrillation. This can be easily managed with short-acting IV Cardizem or esmolol in the perioperative. If needed. Meanwhile will increase metoprolol to 50 mg daily, will give additional 25 mg dose tonight. EKG post ECT to be performed. (2) Atrial fibrillation: Status: Acute Code(s): I48.91 - Unspecified atrial fibrillation Assessment and Plan: Atrial fibrillation as above persistent, currently without any symptoms, or signs of cardiac decompensation. Continue rate control approach for now. Increase metoprolol to 50 mg daily. Continue full oral anticoagulation, currently on Eliquis 5 mg b.i.d.. Continue aggressive blood pressure control. Will set up for followup as outpatient was discharged from Behavioral Unit in to 2-[address] Alanis (3) MDD (major depressive disorder), recurrent episode, severe: Status: Acute Code(s): F33.2 - Major depressive disorder, recurrent severe without psychotic features Assessment and Plan: Elderly female with MDD that has failed to several medication trials and historically, she improved with ECT. Now, admitted for treatment. Plan: Keep same treatment, 3rd ECT session on Friday05/09/2021. New EKG today to follow-up a-fib Greater than 50% of the session was spent on counseling and/or coordination of care Reason for contiued inpatient stay Substantial Risk for: inability to function, rapid decompensation and med/psych decompensation
[2021-05-08] MEDS: Sucralfate 1 GM TABLET PO ×3 (11:10→21:58)
[2021-05-08 18:00] VITALS: BP 110/68; PULSE 73; TEMP 36.4; O2SAT 94
[2021-05-08] MEDS: traZODone HCL 50 MG TABLET PO (22:03)
[2021-05-09] VITALS (15 sets, daily range): BP systolic 105–159; BP diastolic 51–92; PULSE 68–89; RESP 16–18; TEMP 35.9–36.7; O2SAT 93–100
--- NOTE | 2021-05-09 08:57 | MHC.CLN ---
NUTRITION FOLLOW UP CONTINUES WITH ECT TREATMENTS AND TRAY HELD PRIOR TO ECT. RESUME REGULAR DIET AND ENSURE CLEAR BID WHEN ABLE.
--- NOTE | 2021-05-09 12:05 | HO.PSYCHPN ---
Subjective Subjective Date of Service: 05/09/21 Reason For Visit: Depression Interim History: The patient's mood has improved with ECT. Today AM, after ECT, she was tired and slightly confused, later, she reported improvement of her mood, no major side effects, no evidence of worsening a-fib. Mental Status Exam Mental Status Exam Patient Appearance: Well Grooomed Patient Orientation: Person, Place, Time and Situation Level of Consciousness: Awake and Appropriate Patient Behavior: Appropriate Mood Description: Calm Affect Description: Appropriate Patient Cognition Impaired: No Ability to Follow Directions: Good Speech Pattern: Clear Memory Description: Intact Hallucinations: None Delusions: Not Present Thought Process: Intact Thought Content: positive for Intact Judgement: Fair Diagnostics Vital Signs (24Hr): Vital Signs - 24 hr 05/08/21 18:00 05/09/21 06:00 05/09/21 07:31 Temperature 97.6 F 97.6 F 97.6 F Pulse Rate 73 73 73 Respiratory Rate 16 16 Blood Pressure 110/68 105/51 L 105/51 L Pulse Oximetry 94 95 95 05/09/21 09:00 Temperature 98.1 F Pulse Rate 76 Respiratory Rate Blood Pressure 130/66 Pulse Oximetry 96 Body Mass Index 37.8 Labs Results: 05/02/21 15:23 05/08/21 09:25 Labs: Laboratory Results - last 48 hr 05/08/21 09:25 Sodium 141 Potassium 4.7 Chloride 108 Carbon Dioxide 23 Anion Gap 15 BUN 14 Creatinine 0.75 Estim Creat Clear Calc 77.9 Estimated GFR > 60 Random Glucose 128 H Calcium 9.5 Imaging Radiology Impressions: ITS Impressions Chest X-Ray 05/01/21 18:14 IMPRESSION: Unremarkable chest examination. Medications Medications Current Medications Generic Name Dose Route Start Last Admin Trade Name Freq PRN Reason Stop Dose Admin Acetaminophen 650 mg 05/01/21 23:45 05/07/21 09:56 Acetaminophen 325 Mg Tablet PO 650 mg Q6H PRN Administration Headache/Pain Mild Scale (1-3) Al Hydroxide/Mg Hydroxide 30 ml 05/01/21 23:45 05/08/21 09:56 Magnesium Hydrox/Alum Hydrox 30 Ml Oral.Susp PO 30 ml Q6H PRN Administration Heartburn/Nausea Amlodipine Besylate 5 mg 05/02/21 09:00 05/08/21 09:51 Amlodipine Besylate 5 Mg Tablet PO 5 mg DAILY [facility] Administration Protocol Apixaban 5 mg 05/02/21 09:00 05/08/21 21:58 Apixaban 5 Mg Tablet PO 5 mg BID [facility] Administration Atorvastatin Calcium 80 mg 05/02/21 09:00 05/08/21 09:52 Atorvastatin Calcium 80 Mg Tablet PO 80 mg DAILY [facility]I Administration Levothyroxine Sodium 100 mcg 05/02/21 06:30 05/09/21 05:11 Levothyroxine Sodium 100 Mcg Tablet PO Not Given DAILY@0630 [facility] Loperamide HCl 2 mg 05/01/21 23:45 05/07/21 09:49 Loperamide Hcl 2 Mg Capsule PO 2 mg DAILY PRN Administration Diarrhea Magnesium Hydroxide 30 ml 05/01/21 23:45 Milk Of Magnesia 30 Ml Oral.Susp PO DAILY PRN Constipation Metoprolol Succinate 50 mg 05/04/21 09:00 05/08/21 09:52 Metoprolol Succinate Er 50 Mg Tab.Er.24h PO 50 mg DAILY [facility] Administration Protocol Non-Formulary Medication 50 mg 05/02/21 09:00 Desvenlafaxine Succinate PO DAILY [facility] Non-Formulary Medication 1 gm 05/01/21 23:45 Diclofenac Sodium TOPICAL QID PRN joint pain Omeprazole 20 mg 05/03/21 17:30 05/09/21 05:11 Omeprazole 20 Mg Capsule.Dr PO Not Given BID@0630,1630 [facility] Ondansetron HCl 4 mg 05/02/21 06:08 05/05/21 01:15 Ondansetron Odt 4 Mg Tab.Rapdis TRANSLINGU 4 mg Q8H PRN Administration Nausea and Vomiting Pharmacy Consult 1 each 05/01/21 16:40 Consult Rx Perform Med Rec MISCELLANE ONCE PRN Consult order Sucralfate 1 gm 05/08/21 11:30 05/08/21 21:58 Sucralfate 1 Gm Tablet PO 1 gm QIDACHS [facility] Administration Trazodone HCl 50 mg 05/01/21 23:45 05/08/21 22:03 Trazodone Hcl 50 Mg Tablet PO 50 mg BEDTIME PRN Administration Insomnia Venlafaxine HCl 150 mg 05/04/21 09:00 05/07/21 09:51 Venlafaxine Hcl Er 150 Mg Cap.Er.24h PO 150 mg DAILY [facility] Administration Allergies Allergies Allergy/AdvReac Type Severity Reaction Status Date / Time hornet venom [HORNETS] Allergy Unknown UNKNOWN Verified 12/28/20 13:03 morphine [MORPHINE] Allergy Unknown UNKNOWN Verified 12/28/20 13:03 tetracycline [TETRACYCLINE] Allergy Unknown UNKNOWN Verified 12/28/20 13:03 aspirin AdvReac Unknown nose bleeds Verified 12/28/20 13:04 Assessment & Plan Assessment & Plan (1) Preoperative cardiovascular examination: Status: Acute Code(s): Z01.810 - Encounter for preprocedural cardiovascular examination Assessment and Plan: Pre ECT cardiovascular examination elderly woman with known history of atrial fibrillation, currently rate control atrial fibrillation without any symptoms of angina or any signs of cardiac decompensation. Clinically she is doing well. She has good physical capacity. At current time I do not think patient is at unduly high risk for any cardiovascular events after ECT. Expect that could be slightly fast heart rate with ECT in patients with atrial fibrillation. This can be easily managed with short-acting IV Cardizem or esmolol in the perioperative. If needed. Meanwhile will increase metoprolol to 50 mg daily, will give additional 25 mg dose tonight. EKG post ECT to be performed. (2) Atrial fibrillation: Status: Acute Code(s): I48.91 - Unspecified atrial fibrillation Assessment and Plan: Atrial fibrillation as above persistent, currently without any symptoms, or signs of cardiac decompensation. Continue rate control approach for now. Increase metoprolol to 50 mg daily. Continue full oral anticoagulation, currently on Eliquis 5 mg b.i.d.. Continue aggressive blood pressure control. Will set up for followup as outpatient was discharged from Behavioral Unit in to 2-[address] Alanis (3) MDD (major depressive disorder), recurrent episode, severe: Status: Acute Code(s): F33.2 - Major depressive disorder, recurrent severe without psychotic features Assessment and Plan: Elderly female with MDD that has failed to several medication trials and historically, she improved with ECT. Now, admitted for treatment. Plan: Keep same treatment, 4th ECT session on Friday05/11/2021. New EKG today to follow-up a-fib Greater than 50% of the session was spent on counseling and/or coordination of care Reason for contiued inpatient stay Substantial Risk for: inability to function, rapid decompensation and med/psych decompensation
--- NOTE | 2021-05-09 13:17 | P.CONAN_ITS ---
HPI - Anesthesia Eval Consult details Narrative: major depression [facility] Active Problems Active Problems: All Active Problems (Updated 05/03/21 @ 15:58 by Oscar Mcneill MD) Atrial fibrillation (Acute) Preoperative cardiovascular examination (Acute) MDD (major depressive disorder), recurrent episode, severe (Acute) Lymphoblastic leukemia (Acute) Depression (Acute) Essential hypertension (Acute) PAF (paroxysmal atrial fibrillation) (Acute) Past Medical History Medical History Essential hypertension High cholesterol Hypothyroidism PAF (paroxysmal atrial fibrillation) Family History Family History Father FH: prostate cancer Mother CVD (cardiovascular disease) Surgical History Surgical History No pertinent past surgical history Social History Social History Household Members: None Housing: Other Do you presently have visiting nurse or other home services: No Patient Tobacco Use Status: Never used Tobacco Smoked in Last 30 Days: No Use of substances other than those prescribed or required for medical reasons: No Currently Displaying Signs/Symptoms of Drug Intoxication Withdrawal: No Any prior treatment program specific to substance use: No Have you been hit, kicked, punched, or otherwise hurt by someone within the past year? If so, by whom?: No Do you feel safe in your current relationship?: No Is there a partner from a previous relationship who is making you feel unsafe now?: No Are you made to feel afraid or neglected: No [employer] Healthcare Practices: [employer] Are you DNR?: No Advance Directives: No Advance Directives Information Provided: Yes Advance Directives on File: Yes Healthcare Proxy: Yes Guardian: No Do you have thoughts of harming others: None Do you have a plan to hurt others: No Plan Recently lost weight without trying: Yes How much weight loss: 14-23 pounds Eating poorly because of decreased appetite: Yes Nutrition screen score: 5 Nutrition Risks: Acute nausea or vomiting x1 week Patient : No : No Poor oral hygiene: No service: No Meds Allergies Allergy/AdvReac Type Severity Reaction Status Date / Time hornet venom [HORNETS] Allergy Unknown UNKNOWN Verified 12/28/20 13:03 morphine [MORPHINE] Allergy Unknown UNKNOWN Verified 12/28/20 13:03 tetracycline [TETRACYCLINE] Allergy Unknown UNKNOWN Verified 12/28/20 13:03 aspirin AdvReac Unknown nose bleeds Verified 12/28/20 13:04 Active Medications: Current Medications Generic Name Dose Route Start Last Admin Trade Name Freq PRN Reason Stop Dose Admin Acetaminophen 650 mg 05/01/21 23:45 05/07/21 09:56 Acetaminophen 325 Mg Tablet PO 650 mg Q6H PRN Administration Headache/Pain Mild Scale (1-3) Al Hydroxide/Mg Hydroxide 30 ml 05/01/21 23:45 05/08/21 09:56 Magnesium Hydrox/Alum Hydrox 30 Ml Oral.Susp PO 30 ml Q6H PRN Administration Heartburn/Nausea Amlodipine Besylate 5 mg 05/02/21 09:00 05/08/21 09:51 Amlodipine Besylate 5 Mg Tablet PO 5 mg DAILY [facility] Administration Protocol Apixaban 5 mg 05/02/21 09:00 05/08/21 21:58 Apixaban 5 Mg Tablet PO 5 mg BID [facility] Administration Atorvastatin Calcium 80 mg 05/02/21 09:00 05/08/21 09:52 Atorvastatin Calcium 80 Mg Tablet PO 80 mg DAILY [facility] Administration Levothyroxine Sodium 100 mcg 05/02/21 06:30 05/09/21 05:11 Levothyroxine Sodium 100 Mcg Tablet PO Not Given DAILY@0630 [facility] Loperamide HCl 2 mg 05/01/21 23:45 05/07/21 09:49 Loperamide Hcl 2 Mg Capsule PO 2 mg DAILY PRN Administration Diarrhea Magnesium Hydroxide 30 ml 05/01/21 23:45 Milk Of Magnesia 30 Ml Oral.Susp PO DAILY PRN Constipation Metoprolol Succinate 50 mg 05/04/21 09:00 05/08/21 09:52 Metoprolol Succinate Er 50 Mg Tab.Er.24h PO 50 mg DAILY [facility] Administration Protocol Non-Formulary Medication 50 mg 05/02/21 09:00 Desvenlafaxine Succinate PO DAILY [facility] Non-Formulary Medication 1 gm 05/01/21 23:45 Diclofenac Sodium TOPICAL QID PRN joint pain Omeprazole 20 mg 05/03/21 17:30 05/09/21 05:11 Omeprazole 20 Mg Capsule.Dr PO Not Given BID@0630,1630 [facility] Ondansetron HCl 4 mg 05/02/21 06:08 05/05/21 01:15 Ondansetron Odt 4 Mg Tab.Rapdis TRANSLINGU 4 mg Q8H PRN Administration Nausea and Vomiting Pharmacy Consult 1 each 05/01/21 16:40 Consult Rx Perform Med Rec MISCELLANE ONCE PRN Consult order Sucralfate 1 gm 05/08/21 11:30 05/08/21 21:58 Sucralfate 1 Gm Tablet PO 1 gm QIDACHS [facility] Administration Trazodone HCl 50 mg 05/01/21 23:45 05/08/21 22:03 Trazodone Hcl 50 Mg Tablet PO 50 mg BEDTIME PRN Administration Insomnia Venlafaxine HCl 150 mg 05/04/21 09:00 05/07/21 09:51 Venlafaxine Hcl Er 150 Mg Cap.Er.24h PO 150 mg DAILY [facility] Administration Home Medications Medication Instructions Recorded Confirmed Last Taken Type desvenlafaxine succinate 50 mg 50 mg PO DAILY 12/28/20 05/01/21 Unknown History tablet,extended release 24 hr diclofenac sodium 1 % topical gel 1 g TOPICAL QID PRN 12/28/20 05/01/21 Unknown History dicyclomine 20 mg tablet 20 mg PO TID 12/28/20 05/01/21 05/01/21 History loperamide 2 mg capsule 2 mg PO DAILY PRN 12/28/20 05/01/21 Unknown History atorvastatin 80 mg PO DAILY 05/01/21 05/01/21 05/01/21 History levothyroxine 100 mcg PO DAILY 05/01/21 05/01/21 05/01/21 History lorazepam [Ativan] 0.25 mg PO DAILY PRN 05/01/21 05/01/21 Unknown History lorazepam [Ativan] 0.5 mg PO BEDTIME PRN 05/01/21 05/01/21 Unknown History metformin 500 mg PO DAILY 05/01/21 05/01/21 Unknown History Exam Exam Date and Time: May 09, 2021 1317 Height,Weight and Vital Signs: Height 5 ft 4 in Weight 100 kg Last Vital Signs Temp 96.9 F 05/09/21 12:45 Pulse 77 05/09/21 12:45 Resp 16 05/09/21 12:45 BP 153/92 H 05/09/21 12:45 Pulse Ox 99 06/16/21 12:45 Pertinent Lab Results Pertinent Lab Results: Laboratory Tests 05/01/21 05/01/21 05/01/21 17:40 17:40 18:25 WBC 27.1 H RBC 5.36 Hgb 13.6 Hct 43.9 MCV 81.9 MCH 25.4 L MCHC 31.0 RDW 15.7 Plt Count 273 MPV 11.9 Immature Gran % (Auto) Cancelled Neut % (Auto) Cancelled Lymph % (Auto) Cancelled [place] % (Auto) Cancelled Eos % (Auto) Cancelled Baso % (Auto) Cancelled Lymph # (Auto) Cancelled [place] # (Auto) Cancelled Eos # (Auto) Cancelled Baso # (Auto) Cancelled Abs Immat Gran (auto) Cancelled Absolute Neuts (auto) Cancelled Absolute Nucleated RBC 0.000 Nucleated RBC % (auto) 0.0 Neutrophils % (Manual) 17 L Band Neutrophils % 1 L Lymphocytes % (Manual) 20 Atypical Lymphs % (Man) 57 H Monocytes % (Manual) 5 Abs Neuts (Manual) 4.9 Lymphocytes # (Manual) 5.4 H Atyp Lymphs # (Manual) 15.4 Monocytes # (Manual) 1.4 H Platelet Estimate NORMAL Large Platelets PRESENT Plt Morphology Comment NOTED RBC Morphology NOTED Stomatocytes 1+ (5-14) Smear Tech's Comments MANUAL DIFF Smear Path Review SEE NOTE Sodium 144 Potassium 4.0 Chloride 111 H Carbon Dioxide 23 Anion Gap 14 BUN 13 Creatinine 0.74 Estim Creat Clear Calc 79.0 Estimated GFR > 60 POC Glucose Random Glucose 95 Estimat Average Glucose Hemoglobin A1c % Calcium 9.7 Total Bilirubin 0.7 Direct Bilirubin 0.2 AST 19 ALT 14 Alkaline Phosphatase 94 Total Protein 6.9 Albumin 4.3 Triglycerides Cholesterol LDL Cholesterol, Calc HDL Cholesterol 25-OH Vitamin D Total TSH Urine Color Urine Appearance Urine pH Ur Specific [place] Urine Protein Urine Glucose (UA) Urine Ketones Urine Blood Urine Nitrite Ur Leukocyte Esterase Urine Opiates Screen Ur Barbiturates Screen Ur Phencyclidine Scrn Ur Amphetamines Screen U Benzodiazepines Scrn Urine Cocaine Screen U Marijuana (THC) Screen COVID-19 ([facility]) Negative COVID-19 Clin Com See Note 05/01/21 05/01/21 05/02/21 19:24 19:24 15:23 WBC 23.8 H RBC 5.19 Hgb 13.4 Hct 42.8 MCV 82.5 MCH 25.8 L MCHC 31.3 RDW 15.7 Plt Count 273 MPV 12.0 Immature Gran % (Auto) 0.2 Neut % (Auto) 23.1 L Lymph % (Auto) 72.1 H [place] % (Auto) 3.5 Eos % (Auto) 0.8 Baso % (Auto) 0.3 Lymph # (Auto) 17.2 H [place] # (Auto) 0.8 Eos # (Auto) 0.2 Baso # (Auto) 0.1 Abs Immat Gran (auto) 0.04 H Absolute Neuts (auto) 5.5 Absolute Nucleated RBC 0.040 H Nucleated RBC % (auto) 0.2 Neutrophils % (Manual) Band Neutrophils % Lymphocytes % (Manual) Atypical Lymphs % (Man) Monocytes % (Manual) Abs Neuts (Manual) Lymphocytes # (Manual) Atyp Lymphs # (Manual) Monocytes # (Manual) Platelet Estimate Large Platelets Plt Morphology Comment RBC Morphology Stomatocytes Smear Tech's Comments VERIFIED Smear Path Review Sodium Potassium Chloride Carbon Dioxide Anion Gap BUN Creatinine Estim Creat Clear Calc Estimated GFR POC Glucose Random Glucose Estimat Average Glucose Hemoglobin A1c % Calcium Total Bilirubin Direct Bilirubin AST ALT Alkaline Phosphatase Total Protein Albumin Triglycerides Cholesterol LDL Cholesterol, Calc HDL Cholesterol 25-OH Vitamin D Total TSH Urine Color YELLOW Urine Appearance HAZY Urine pH 6.0 Ur Specific [place] >= 1.030 H Urine Protein NEG Urine Glucose (UA) NEG Urine Ketones NEG Urine Blood NEG Urine Nitrite NEG Ur Leukocyte Esterase NEG Urine Opiates Screen Not Detected Ur Barbiturates Screen Not Detected Ur Phencyclidine Scrn Not Detected Ur Amphetamines Screen Not Detected U Benzodiazepines Scrn Not Detected Urine Cocaine Screen Not Detected U Marijuana (THC) Screen Not Detected COVID-19 ([facility]) COVID-19 Clin Com 05/02/21 05/03/21 05/03/21 21:06 07:47 07:47 WBC RBC Hgb Hct MCV MCH MCHC RDW Plt Count MPV Immature Gran % (Auto) Neut % (Auto) Lymph % (Auto) [place] % (Auto) Eos % (Auto) Baso % (Auto) Lymph # (Auto) [place] # (Auto) Eos # (Auto) Baso # (Auto) Abs Immat Gran (auto) Absolute Neuts (auto) Absolute Nucleated RBC Nucleated RBC % (auto) Neutrophils % (Manual) Band Neutrophils % Lymphocytes % (Manual) Atypical Lymphs % (Man) Monocytes % (Manual) Abs Neuts (Manual) Lymphocytes # (Manual) Atyp Lymphs # (Manual) Monocytes # (Manual) Platelet Estimate Large Platelets Plt Morphology Comment RBC Morphology Stomatocytes Smear Tech's Comments Smear Path Review Sodium Potassium Chloride Carbon Dioxide Anion Gap BUN Creatinine Estim Creat Clear Calc Estimated GFR POC Glucose 92 Random Glucose Estimat Average Glucose Hemoglobin A1c % Calcium Total Bilirubin Direct Bilirubin AST ALT Alkaline Phosphatase Total Protein Albumin Triglycerides 151 Cholesterol 174 LDL Cholesterol, Calc 102 HDL Cholesterol 42 25-OH Vitamin D Total TSH 0.49 Urine Color Urine Appearance Urine pH Ur Specific [place] Urine Protein Urine Glucose (UA) Urine Ketones Urine Blood Urine Nitrite Ur Leukocyte Esterase Urine Opiates Screen Ur Barbiturates Screen Ur Phencyclidine Scrn Ur Amphetamines Screen U Benzodiazepines Scrn Urine Cocaine Screen U Marijuana (THC) Screen COVID-19 ([facility]IA) COVID-19 Tauntr Com 05/03/21 05/03/21 05/08/21 07:47 07:47 09:25 WBC RBC Hgb Hct MCV MCH MCHC RDW Plt Count MPV Immature Gran % (Auto) Neut % (Auto) Lymph % (Auto) [place] % (Auto) Eos % (Auto) Baso % (Auto) Lymph # (Auto) [place] # (Auto) Eos # (Auto) Baso # (Auto) Abs Immat Gran (auto) Absolute Neuts (auto) Absolute Nucleated RBC Nucleated RBC % (auto) Neutrophils % (Manual) Band Neutrophils % Lymphocytes % (Manual) Atypical Lymphs % (Man) Monocytes % (Manual) Abs Neuts (Manual) Lymphocytes # (Manual) Atyp Lymphs # (Manual) Monocytes # (Manual) Platelet Estimate Large Platelets Plt Morphology Comment RBC Morphology Stomatocytes Smear Tech's Comments Smear Path Review Sodium 141 Potassium 4.7 Chloride 108 Carbon Dioxide 23 Anion Gap 15 BUN 14 Creatinine 0.75 Estim Creat Clear Calc 77.9 Estimated GFR > 60 POC Glucose Random Glucose 128 H Estimat Average Glucose 117 Hemoglobin A1c % 5.7 Calcium 9.5 Total Bilirubin Direct Bilirubin AST ALT Alkaline Phosphatase Total Protein Albumin Triglycerides Cholesterol LDL Cholesterol, Calc HDL Cholesterol 25-OH Vitamin D Total 30.8 TSH Urine Color Urine Appearance Urine pH Ur Specific [place] Urine Protein Urine Glucose (UA) Urine Ketones Urine Blood Urine Nitrite Ur Leukocyte Esterase Urine Opiates Screen Ur Barbiturates Screen Ur Phencyclidine Scrn Ur Amphetamines Screen U Benzodiazepines Scrn Urine Cocaine Screen U Marijuana (THC) Screen COVID-19 ([facility]) COVID-19 Clin Com Airway Mallampati Class: II TM Dist: >3cm Neck ROM: Full Loose/Missing/Broken Teeth: Yes Heart: [id number] Lungs: cta b/l Assessment and Plan Assessment Anesthesia Assessment: Anesthesia Plan Discussed, PAT Visit and Chart Reviewed Final Anesthetic Review NPO: Yes ASA Class: III Final Preanesthetic Review: No Changes in Pt Med Stat, Meds/Allgs Chart Reviewed, Consent Obtained/Reviewed and Anes Risks/Benef Reviewed Patient Risk: Intermediate Procedure Risk: Low Assessment/Block/Sedation in SS: Assess/Block/Sedation-SS Anesthetic Plan Anesthetic Plan: GA and Agree w/ Assess. and Plan Disposition: Standard PACU
--- NOTE | 2021-05-09 13:27 | MHC.SHP ---
Pre-Procedural Eval Section A The patient is an INPATIENT: Yes Changes since office visit: No Cold of Flu in the past 2 weeks, No New Medical Problems and No Changes in Medication The History & Physical has been completed within 30 days and I have reviewed it.: Yes Section B Chief Complaint: Depression Allergies: Allergies Allergy/AdvReac Type Severity Reaction Status Date / Time hornet venom [HORNETS] Allergy Unknown UNKNOWN Verified 12/28/20 13:03 morphine [MORPHINE] Allergy Unknown UNKNOWN Verified 12/28/20 13:03 tetracycline [TETRACYCLINE] Allergy Unknown UNKNOWN Verified 12/28/20 13:03 aspirin AdvReac Unknown nose bleeds Verified 12/28/20 13:04 Plan I have reviewed the history and physical and performed a pertinent physical examination on my patient. No changes have occurred unless specified.
--- NOTE | 2021-05-09 13:27 | HO.ECTPROC ---
ECT Procedure Note Diagnosis/Treatment Date of Service: 05/09/21 Diagnosis: Major Depressive Disorder Current Treatment Number: 3 Treatment: Series Interval Clinical Notes: some improvement noted tolerating ect ECT Settings Device: THYMATRON DGx Electrode Placement: Right Unilateral Program/Pulse Width: 0.25 Energy Percent: 70 Seizure Duration By EEG (in seconds): 61 Medications Administration General Anesthetic: Etomidate (14) Muscle Relaxant: Succinylcholine (100) Ancillary Medications Analgesics: Torodol - Pre ECT Anti-emetics: Zofran - Pre ECT Cardiovascular Medications: Esmolol (5) Miscillaneous Medications: Propofol Airway Management Airway Management: Bag Mask Ventilation Treatment Recommendations No Changes Recommended: No change Pt Tolerated Procedure w/o Issue: Yes
[2021-05-09] MEDS: amLODIPine Besylate 5 MG TABLET PO (15:45)
[2021-05-09] MEDS: Atorvastatin Calcium 80 MG TABLET PO (15:46)
[2021-05-09] MEDS: Omeprazole 20 MG CAPSULE.DR PO (15:48)
[2021-05-09] MEDS: Metoprolol Succinate ER 50 MG TAB.ER.24H PO (15:49)
[2021-05-09] MEDS: Sucralfate 1 GM TABLET PO ×2 (17:16→22:20)
[2021-05-09] MEDS: traZODone HCL 50 MG TABLET PO (22:20)
[2021-05-09] MEDS: Apixaban 5 MG TABLET PO (22:21)
[2021-05-10] MEDS: Levothyroxine Sodium 100 MCG TABLET PO (05:48)
[2021-05-10] MEDS: Omeprazole 20 MG CAPSULE.DR PO ×2 (05:48→16:51)
[2021-05-10] MEDS: Sucralfate 1 GM TABLET PO ×4 (05:48→20:21)
[2021-05-10 06:00] VITALS: BP 107/58; PULSE 62; RESP 16; TEMP 36.3; O2SAT 97
[2021-05-10 08:44] VITALS: BP 114/52; PULSE 84
[2021-05-10] MEDS: Atorvastatin Calcium 80 MG TABLET PO (08:44)
[2021-05-10] MEDS: Metoprolol Succinate ER 50 MG TAB.ER.24H PO (08:44)
[2021-05-10 08:45] VITALS: BP 114/52; PULSE 84
[2021-05-10] MEDS: Apixaban 5 MG TABLET PO ×2 (08:45→20:21)
[2021-05-10] MEDS: Venlafaxine HCl ER 150 MG CAP.ER.24H PO (08:45)
[2021-05-10] MEDS: amLODIPine Besylate 5 MG TABLET PO (08:45)
[2021-05-10 13:15] VITALS: BMI 37.5
--- NOTE | 2021-05-10 13:20 | HO.PSYCHPN ---
Subjective Subjective Date of Service: 05/10/21 Reason For Visit: Depression Subjective Notes: Conditional Voluntary Interim History: Patient feeling somewhat better with ECT less depressed discussed different options. No cognitive impairment Medication Compliance: Yes Side effects from medications: No Mental Status Exam Mental Status Exam Patient Appearance: Well Grooomed Patient Orientation: Person, Place, Time and Situation Level of Consciousness: Awake and Appropriate Patient Behavior: Appropriate Mood Description: Calm Affect Description: Appropriate Patient Cognition Impaired: No Ability to Follow Directions: Good Speech Pattern: Clear Memory Description: Intact Hallucinations: None Delusions: Not Present Thought Process: Intact Thought Content: positive for Intact Judgement: Fair Diagnostics Vital Signs (24Hr): Vital Signs - 24 hr 05/09/21 13:35 05/09/21 13:40 05/09/21 13:45 Temperature 97.5 F Pulse Rate 68 85 82 Respiratory Rate 16 16 16 Blood Pressure 140/60 H 147/78 H 151/81 H Pulse Oximetry 100 97 94 05/09/21 13:49 05/09/21 14:13 05/09/21 14:50 Temperature 97.8 F Pulse Rate 89 77 82 Respiratory Rate 18 18 18 Blood Pressure 148/80 H 151/82 H 159/77 H Pulse Oximetry 93 95 05/09/21 15:45 05/09/21 15:49 05/09/21 16:14 Temperature Pulse Rate 82 82 82 Respiratory Rate Blood Pressure 159/77 H 159/77 H 159/77 H Pulse Oximetry 05/09/21 16:15 05/09/21 18:00 05/10/21 06:00 Temperature 96.6 F L 97.4 F Pulse Rate 82 70 62 Respiratory Rate 16 16 Blood Pressure 159/77 H 124/70 107/58 L Pulse Oximetry 96 97 05/10/21 08:44 05/10/21 08:45 Temperature Pulse Rate 84 84 Respiratory Rate Blood Pressure 114/52 L 114/52 L Pulse Oximetry Body Mass Index 37.8 Labs Results: 05/02/21 15:23 05/08/21 09:25 Imaging Radiology Impressions: ITS Impressions Chest X-Ray 05/01/21 18:14 IMPRESSION: Unremarkable chest examination. Medications Medications Current Medications Generic Name Dose Route Start Last Admin Trade Name Freq PRN Reason Stop Dose Admin Acetaminophen 650 mg 05/01/21 23:45 05/07/21 09:56 Acetaminophen 325 Mg Tablet PO 650 mg Q6H PRN Administration Headache/Pain Mild Scale (1-3) Acetaminophen 650 mg 05/09/21 13:34 Acetaminophen 325 Mg Tablet PO ONCE PRN Pain, Mild (Pain Scale 1-3) Al Hydroxide/Mg Hydroxide 30 ml 05/01/21 23:45 05/08/21 09:56 Magnesium Hydrox/Alum Hydrox 30 Ml Oral.Susp PO 30 ml Q6H PRN Administration Heartburn/Nausea Amlodipine Besylate 5 mg 05/02/21 09:00 05/10/21 08:45 Amlodipine Besylate 5 Mg Tablet PO 5 mg DAILY [facility] Administration Protocol Apixaban 5 mg 05/02/21 09:00 05/10/21 08:45 Apixaban 5 Mg Tablet PO 5 mg BID [facility] Administration Atorvastatin Calcium 80 mg 05/02/21 09:00 05/10/21 08:44 Atorvastatin Calcium 80 Mg Tablet PO 80 mg DAILY [facility] Administration Levothyroxine Sodium 100 mcg 05/02/21 06:30 05/10/21 05:48 Levothyroxine Sodium 100 Mcg Tablet PO 100 mcg DAILY@0630 [facility] Administration Loperamide HCl 2 mg 05/01/21 23:45 05/07/21 09:49 Loperamide Hcl 2 Mg Capsule PO 2 mg DAILY PRN Administration Diarrhea Magnesium Hydroxide 30 ml 05/01/21 23:45 Milk Of Magnesia 30 Ml Oral.Susp PO DAILY PRN Constipation Metoprolol Succinate 50 mg 05/04/21 09:00 05/10/21 08:44 Metoprolol Succinate Er 50 Mg Tab.Er.24h PO 50 mg DAILY [facility] Administration Protocol Non-Formulary Medication 1 gm 05/01/21 23:45 Diclofenac Sodium TOPICAL QID PRN joint pain Omeprazole 20 mg 05/03/21 17:30 05/10/21 05:48 Omeprazole 20 Mg Capsule. PO 20 mg BID@0630,1630 [facility] Administration Ondansetron HCl 4 mg 05/02/21 06:08 05/05/21 01:15 Ondansetron Odt 4 Mg Tab.Rapdis TRANSLINGU 4 mg Q8H PRN Administration Nausea and Vomiting Ondansetron HCl 4 mg 05/09/21 13:34 Ondansetron Hcl 4 Mg/2 Ml Vial IVPUSH ONCE PRN Nausea and Vomiting Pharmacy Consult 1 each 05/01/21 16:40 Consult Rx Perform Med Rec MISCELLANE ONCE PRN Consult order Sucralfate 1 gm 05/08/21 11:30 05/10/21 11:46 Sucralfate 1 Gm Tablet PO 1 gm QIDACHS [facility] Administration Trazodone HCl 50 mg 05/01/21 23:45 05/09/21 22:20 Trazodone Hcl 50 Mg Tablet PO 50 mg BEDTIME PRN Administration Insomnia Venlafaxine HCl 150 mg 05/04/21 09:00 05/10/21 08:45 Venlafaxine Hcl Er 150 Mg Cap.Er.24h PO 150 mg DAILY [facility] Administration Allergies Allergies Allergy/AdvReac Type Severity Reaction Status Date / Time hornet venom [HORNETS] Allergy Unknown UNKNOWN Verified 12/28/20 13:03 morphine [MORPHINE] Allergy Unknown UNKNOWN Verified 12/28/20 13:03 tetracycline [TETRACYCLINE] Allergy Unknown UNKNOWN Verified 12/28/20 13:03 aspirin AdvReac Unknown nose bleeds Verified 12/28/20 13:04 Assessment & Plan Assessment & Plan (1) Preoperative cardiovascular examination: Status: Acute Code(s): Z01.810 - Encounter for preprocedural cardiovascular examination Assessment and Plan: Pre ECT cardiovascular examination elderly woman with known history of atrial fibrillation, currently rate control atrial fibrillation without any symptoms of angina or any signs of cardiac decompensation. Clinically she is doing well. She has good physical capacity. At current time I do not think patient is at unduly high risk for any cardiovascular events after ECT. Expect that could be slightly fast heart rate with ECT in patients with atrial fibrillation. This can be easily managed with short-acting IV Cardizem or esmolol in the perioperative. If needed. Meanwhile will increase metoprolol to 50 mg daily, will give additional 25 mg dose tonight. EKG post ECT to be performed. (2) Atrial fibrillation: Status: Acute Code(s): I48.91 - Unspecified atrial fibrillation Assessment and Plan: Atrial fibrillation as above persistent, currently without any symptoms, or signs of cardiac decompensation. Continue rate control approach for now. Increase metoprolol to 50 mg daily. Continue full oral anticoagulation, currently on Eliquis 5 mg b.i.d.. Continue aggressive blood pressure control. Will set up for followup as outpatient was discharged from [facility] in to 2-[address] Alanis (3) MDD (major depressive disorder), recurrent episode, severe: Status: Acute Code(s): F33.2 - Major depressive disorder, recurrent severe without psychotic features Assessment and Plan: Elderly female with MDD that has failed to several medication trials and historically, she improved with ECT. Now, admitted for treatment. Continue ECT no cardiac or cognitive issues Greater than 50% of the session was spent on counseling and/or coordination of care Reason for contiued inpatient stay Substantial Risk for: inability to function, rapid decompensation and med/psych decompensation
[2021-05-10] MEDS: Sennosides/Docusate Sodium TABLET 1 TAB PO (14:30)
[2021-05-10 18:00] VITALS: BP 116/66; PULSE 84; RESP 18; TEMP 36.3; O2SAT 93
[2021-05-10 19:59] VITALS: BP 126/64; PULSE 77; RESP 18; TEMP 36.6; O2SAT 95
[2021-05-11] VITALS (8 sets, daily range): BP systolic 114–150; BP diastolic 59–89; PULSE 68–91; RESP 15–20; TEMP 36.2–36.9; O2SAT 90–98; BMI 37.4
--- NOTE | 2021-05-11 | ECG_ITS ---
Test Reason : S/P ECT Blood Pressure : / mmHG Vent. Rate : 079 BPM Atrial Rate : 105 BPM P-R Int : 000 ms QRS Dur : 092 ms QT Int : 390 ms P-R-T Axes : 000 002 002 degrees QTc Int : 447 ms Atrial fibrillation Cannot rule out Anterior infarct , age undetermined Abnormal ECG When compared with ECG of 07-MAY-2021 11:56, T wave inversion more evident in Anterolateral leads Referred By: Rogerio Sinclair Electronically Signed By:MAURICIO QUEEN
--- NOTE | 2021-05-11 09:01 | MHC.SHP ---
Pre-Procedural Eval Section A The patient is an INPATIENT: Yes Changes since office visit: Yes Changes in Medication and Yes Patient answered all questions; No Cold of Flu in the past 2 weeks and No New Medical Problems The History & Physical has been completed within 30 days and I have reviewed it.: Yes Section B Chief Complaint: Depression Allergies: Allergies Allergy/AdvReac Type Severity Reaction Status Date / Time hornet venom [HORNETS] Allergy Unknown UNKNOWN Verified 12/28/20 13:03 morphine [MORPHINE] Allergy Unknown UNKNOWN Verified 12/28/20 13:03 tetracycline [TETRACYCLINE] Allergy Unknown UNKNOWN Verified 12/28/20 13:03 aspirin AdvReac Unknown nose bleeds Verified 12/28/20 13:04 Plan I have reviewed the history and physical and performed a pertinent physical examination on my patient. No changes have occurred unless specified.
--- NOTE | 2021-05-11 09:02 | MHC.SHP ---
Pre-Procedural Eval Section B Chief Complaint: Depression Allergies: Allergies Allergy/AdvReac Type Severity Reaction Status Date / Time hornet venom [HORNETS] Allergy Unknown UNKNOWN Verified 12/28/20 13:03 morphine [MORPHINE] Allergy Unknown UNKNOWN Verified 12/28/20 13:03 tetracycline [TETRACYCLINE] Allergy Unknown UNKNOWN Verified 12/28/20 13:03 aspirin AdvReac Unknown nose bleeds Verified 12/28/20 13:04 Plan I have reviewed the history and physical and performed a pertinent physical examination on my patient. No changes have occurred unless specified.afib on anticoagulation
--- NOTE | 2021-05-11 09:24 | HO.ANESPROP2 ---
[facility] Active Problems Active Problems: All Active Problems (Updated 05/03/21 @ 15:58 by Oscar Mcneill MD) Atrial fibrillation (Acute) Preoperative cardiovascular examination (Acute) MDD (major depressive disorder), recurrent episode, severe (Acute) Lymphoblastic leukemia (Acute) Depression (Acute) Essential hypertension (Acute) PAF (paroxysmal atrial fibrillation) (Acute) Past Medical History Medical History Essential hypertension High cholesterol Hypothyroidism PAF (paroxysmal atrial fibrillation) Family History Family History Father FH: prostate cancer Mother CVD (cardiovascular disease) Surgical History Surgical History No pertinent past surgical history Social History Social History Household Members: None Housing: Other Do you presently have visiting nurse or other home services: No Patient Tobacco Use Status: Never used Tobacco service: No Meds Allergies Allergy/AdvReac Type Severity Reaction Status Date / Time hornet venom [HORNETS] Allergy Unknown UNKNOWN Verified 12/28/20 13:03 morphine [MORPHINE] Allergy Unknown UNKNOWN Verified 12/28/20 13:03 tetracycline [TETRACYCLINE] Allergy Unknown UNKNOWN Verified 12/28/20 13:03 aspirin AdvReac Unknown nose bleeds Verified 12/28/20 13:04 Active Medications: Current Medications Generic Name Dose Route Start Last Admin Trade Name Freq PRN Reason Stop Dose Admin Acetaminophen 650 mg 05/01/21 23:45 05/07/21 09:56 Acetaminophen 325 Mg Tablet PO 650 mg Q6H PRN Administration Headache/Pain Mild Scale (1-3) Acetaminophen 650 mg 05/09/21 13:34 Acetaminophen 325 Mg Tablet PO ONCE PRN Pain, Mild (Pain Scale 1-3) Al Hydroxide/Mg Hydroxide 30 ml 05/01/21 23:45 05/08/21 09:56 Magnesium Hydrox/Alum Hydrox 30 Ml Oral.Susp PO 30 ml Q6H PRN Administration Heartburn/Nausea Amlodipine Besylate 5 mg 05/02/21 09:00 05/10/21 08:45 Amlodipine Besylate 5 Mg Tablet PO 5 mg DAILY XAVI Administration Protocol Apixaban 5 mg 05/02/21 09:00 05/10/21 20:21 Apixaban 5 Mg Tablet PO 5 mg BID XAVI Administration Atorvastatin Calcium 80 mg 05/02/21 09:00 05/10/21 08:44 Atorvastatin Calcium 80 Mg Tablet PO 80 mg DAILY XAVI Administration Levothyroxine Sodium 100 mcg 05/02/21 06:30 05/10/21 05:48 Levothyroxine Sodium 100 Mcg Tablet PO 100 mcg DAILY@0630 XAVI Administration Loperamide HCl 2 mg 05/01/21 23:45 05/07/21 09:49 Loperamide Hcl 2 Mg Capsule PO 2 mg DAILY PRN Administration Diarrhea Magnesium Hydroxide 30 ml 05/01/21 23:45 Milk Of Magnesia 30 Ml Oral.Susp PO DAILY PRN Constipation Metoprolol Succinate 50 mg 05/04/21 09:00 05/10/21 08:44 Metoprolol Succinate Er 50 Mg Tab.Er.24h PO 50 mg DAILY XAVI Administration Protocol Non-Formulary Medication 1 gm 05/01/21 23:45 Diclofenac Sodium TOPICAL QID PRN joint pain Omeprazole 20 mg 05/03/21 17:30 05/10/21 16:51 Omeprazole 20 Mg Capsule.Dr PO 20 mg BID@0630,1630 XAVI Administration Ondansetron HCl 4 mg 05/02/21 06:08 05/05/21 01:15 Ondansetron Odt 4 Mg Tab.Rapdis TRANSLINGU 4 mg Q8H PRN Administration Nausea and Vomiting Ondansetron HCl 4 mg 05/09/21 13:34 Ondansetron Hcl 4 Mg/2 Ml Vial IVPUSH ONCE PRN Nausea and Vomiting Pharmacy Consult 1 each 05/01/21 16:40 Consult Rx Perform Med Rec MISCELLANE ONCE PRN Consult order Senna/Docusate Sodium 1 tab 05/10/21 13:19 05/10/21 14:30 Sennosides/Docusate Sodium Tablet PO 1 tab BID PRN Administration Constipation Sucralfate 1 gm 05/08/21 11:30 05/10/21 20:21 Sucralfate 1 Gm Tablet PO 1 gm QIDACHS XAVI Administration Trazodone HCl 50 mg 05/01/21 23:45 05/09/21 22:20 Trazodone Hcl 50 Mg Tablet PO 50 mg BEDTIME PRN Administration Insomnia Venlafaxine HCl 150 mg 05/04/21 09:00 05/10/21 08:45 Venlafaxine Hcl Er 150 Mg Cap.Er.24h PO 150 mg DAILY XAVI Administration Home Medications Medication Instructions Recorded Confirmed Last Taken Type desvenlafaxine succinate 50 mg 50 mg PO DAILY 12/28/20 05/01/21 Unknown History tablet,extended release 24 hr diclofenac sodium 1 % topical gel 1 g TOPICAL QID PRN 12/28/20 05/01/21 Unknown History dicyclomine 20 mg tablet 20 mg PO TID 12/28/20 05/01/21 05/01/21 History loperamide 2 mg capsule 2 mg PO DAILY PRN 12/28/20 05/01/21 Unknown History atorvastatin 80 mg PO DAILY 05/01/21 05/01/21 05/01/21 History levothyroxine 100 mcg PO DAILY 05/01/21 05/01/21 05/01/21 History lorazepam [Ativan] 0.25 mg PO DAILY PRN 05/01/21 05/01/21 Unknown History lorazepam [Ativan] 0.5 mg PO BEDTIME PRN 05/01/21 05/01/21 Unknown History metformin 500 mg PO DAILY 05/01/21 05/01/21 Unknown History Exam Exam Date and Time: May 11, 2021 0924 Height,Weight and Vital Signs: Height 5 ft 4 in Weight 98.883 kg Last Vital Signs Temp 97.1 F 05/11/21 08:20 Pulse 87 05/11/21 08:20 Resp 16 05/11/21 08:20 BP 149/77 H 05/11/21 08:20 Pulse Ox 98 05/11/21 08:20 Pertinent Lab Results Pertinent Lab Results: Laboratory Tests 05/01/21 05/01/21 05/01/21 17:40 17:40 18:25 WBC 27.1 H RBC 5.36 Hgb 13.6 Hct 43.9 MCV 81.9 MCH 25.4 L MCHC 31.0 RDW 15.7 Plt Count 273 MPV 11.9 Immature Gran % (Auto) Cancelled Neut % (Auto) Cancelled Lymph % (Auto) Cancelled [place] % (Auto) Cancelled Eos % (Auto) Cancelled Baso % (Auto) Cancelled Lymph # (Auto) Cancelled [place] # (Auto) Cancelled Eos # (Auto) Cancelled Baso # (Auto) Cancelled Abs Immat Gran (auto) Cancelled Absolute Neuts (auto) Cancelled Absolute Nucleated RBC 0.000 Nucleated RBC % (auto) 0.0 Neutrophils % (Manual) 17 L Band Neutrophils % 1 L Lymphocytes % (Manual) 20 Atypical Lymphs % (Man) 57 H Monocytes % (Manual) 5 Abs Neuts (Manual) 4.9 Lymphocytes # (Manual) 5.4 H Atyp Lymphs # (Manual) 15.4 Monocytes # (Manual) 1.4 H Platelet Estimate NORMAL Large Platelets PRESENT Plt Morphology Comment NOTED RBC Morphology NOTED Stomatocytes 1+ (5-14) Smear Tech's Comments MANUAL DIFF Smear Path Review SEE NOTE Sodium 144 Potassium 4.0 Chloride 111 H Carbon Dioxide 23 Anion Gap 14 BUN 13 Creatinine 0.74 Estim Creat Clear Calc 79.0 Estimated GFR > 60 POC Glucose Random Glucose 95 Estimat Average Glucose Hemoglobin A1c % Calcium 9.7 Total Bilirubin 0.7 Direct Bilirubin 0.2 AST 19 ALT 14 Alkaline Phosphatase 94 Total Protein 6.9 Albumin 4.3 Triglycerides Cholesterol LDL Cholesterol, Calc HDL Cholesterol 25-OH Vitamin D Total TSH Urine Color Urine Appearance Urine pH Ur Specific [place] Urine Protein Urine Glucose (UA) Urine Ketones Urine Blood Urine Nitrite Ur Leukocyte Esterase Urine Opiates Screen Ur Barbiturates Screen Ur Phencyclidine Scrn Ur Amphetamines Screen U Benzodiazepines Scrn Urine Cocaine Screen U Marijuana (THC) Screen COVID-19 ([facility]) Negative COVID-19 Clin Com See Note 05/01/21 05/01/21 05/02/21 19:24 19:24 15:23 WBC 23.8 H RBC 5.19 Hgb 13.4 Hct 42.8 MCV 82.5 MCH 25.8 L MCHC 31.3 RDW 15.7 Plt Count 273 MPV 12.0 Immature Gran % (Auto) 0.2 Neut % (Auto) 23.1 L Lymph % (Auto) 72.1 H [place] % (Auto) 3.5 Eos % (Auto) 0.8 Baso % (Auto) 0.3 Lymph # (Auto) 17.2 H [place] # (Auto) 0.8 Eos # (Auto) 0.2 Baso # (Auto) 0.1 Abs Immat Gran (auto) 0.04 H Absolute Neuts (auto) 5.5 Absolute Nucleated RBC 0.040 H Nucleated RBC % (auto) 0.2 Neutrophils % (Manual) Band Neutrophils % Lymphocytes % (Manual) Atypical Lymphs % (Man) Monocytes % (Manual) Abs Neuts (Manual) Lymphocytes # (Manual) Atyp Lymphs # (Manual) Monocytes # (Manual) Platelet Estimate Large Platelets Plt Morphology Comment RBC Morphology Stomatocytes Smear Tech's Comments VERIFIED Smear Path Review Sodium Potassium Chloride Carbon Dioxide Anion Gap BUN Creatinine Estim Creat Clear Calc Estimated GFR POC Glucose Random Glucose Estimat Average Glucose Hemoglobin A1c % Calcium Total Bilirubin Direct Bilirubin AST ALT Alkaline Phosphatase Total Protein Albumin Triglycerides Cholesterol LDL Cholesterol, Calc HDL Cholesterol 25-OH Vitamin D Total TSH Urine Color YELLOW Urine Appearance HAZY Urine pH 6.0 Ur Specific [place] >= 1.030 H Urine Protein NEG Urine Glucose (UA) NEG Urine Ketones NEG Urine Blood NEG Urine Nitrite NEG Ur Leukocyte Esterase NEG Urine Opiates Screen Not Detected Ur Barbiturates Screen Not Detected Ur Phencyclidine Scrn Not Detected Ur Amphetamines Screen Not Detected U Benzodiazepines Scrn Not Detected Urine Cocaine Screen Not Detected U Marijuana (THC) Screen Not Detected COVID-19 ([facility]) COVID-19 Clin Com 05/02/21 05/03/21 05/03/21 21:06 07:47 07:47 WBC RBC Hgb Hct MCV MCH MCHC RDW Plt Count MPV Immature Gran % (Auto) Neut % (Auto) Lymph % (Auto) [place] % (Auto) Eos % (Auto) Baso % (Auto) Lymph # (Auto) [place] # (Auto) Eos # (Auto) Baso # (Auto) Abs Immat Gran (auto) Absolute Neuts (auto) Absolute Nucleated RBC Nucleated RBC % (auto) Neutrophils % (Manual) Band Neutrophils % Lymphocytes % (Manual) Atypical Lymphs % (Man) Monocytes % (Manual) Abs Neuts (Manual) Lymphocytes # (Manual) Atyp Lymphs # (Manual) Monocytes # (Manual) Platelet Estimate Large Platelets Plt Morphology Comment RBC Morphology Stomatocytes Smear Tech's Comments Smear Path Review Sodium Potassium Chloride Carbon Dioxide Anion Gap BUN Creatinine Estim Creat Clear Calc Estimated GFR POC Glucose 92 Random Glucose Estimat Average Glucose Hemoglobin A1c % Calcium Total Bilirubin Direct Bilirubin AST ALT Alkaline Phosphatase Total Protein Albumin Triglycerides 151 Cholesterol 174 LDL Cholesterol, Calc 102 HDL Cholesterol 42 25-OH Vitamin D Total TSH 0.49 Urine Color Urine Appearance Urine pH Ur Specific [place] Urine Protein Urine Glucose (UA) Urine Ketones Urine Blood Urine Nitrite Ur Leukocyte Esterase Urine Opiates Screen Ur Barbiturates Screen Ur Phencyclidine Scrn Ur Amphetamines Screen U Benzodiazepines Scrn Urine Cocaine Screen U Marijuana (THC) Screen COVID-19 ([facility]IA) COVID-19 Clan Fight Com 05/03/21 05/03/21 05/08/21 07:47 07:47 09:25 WBC RBC Hgb Hct MCV MCH MCHC RDW Plt Count MPV Immature Gran % (Auto) Neut % (Auto) Lymph % (Auto) [place] % (Auto) Eos % (Auto) Baso % (Auto) Lymph # (Auto) [place] # (Auto) Eos # (Auto) Baso # (Auto) Abs Immat Gran (auto) Absolute Neuts (auto) Absolute Nucleated RBC Nucleated RBC % (auto) Neutrophils % (Manual) Band Neutrophils % Lymphocytes % (Manual) Atypical Lymphs % (Man) Monocytes % (Manual) Abs Neuts (Manual) Lymphocytes # (Manual) Atyp Lymphs # (Manual) Monocytes # (Manual) Platelet Estimate Large Platelets Plt Morphology Comment RBC Morphology Stomatocytes Smear Tech's Comments Smear Path Review Sodium 141 Potassium 4.7 Chloride 108 Carbon Dioxide 23 Anion Gap 15 BUN 14 Creatinine 0.75 Estim Creat Clear Calc 77.9 Estimated GFR > 60 POC Glucose Random Glucose 128 H Estimat Average Glucose 117 Hemoglobin A1c % 5.7 Calcium 9.5 Total Bilirubin Direct Bilirubin AST ALT Alkaline Phosphatase Total Protein Albumin Triglycerides Cholesterol LDL Cholesterol, Calc HDL Cholesterol 25-OH Vitamin D Total 30.8 TSH Urine Color Urine Appearance Urine pH Ur Specific [place] Urine Protein Urine Glucose (UA) Urine Ketones Urine Blood Urine Nitrite Ur Leukocyte Esterase Urine Opiates Screen Ur Barbiturates Screen Ur Phencyclidine Scrn Ur Amphetamines Screen U Benzodiazepines Scrn Urine Cocaine Screen U Marijuana (THC) Screen COVID-19 ([facility]) COVID-19 Clin Com Airway Mallampati Class: II TM Dist: >3cm Neck ROM: Full Assessment and Plan Assessment Anesthesia Assessment: Anesthesia Plan Discussed and Chart Reviewed Final Anesthetic Review NPO: Yes ASA Class: III Final Preanesthetic Review: No Changes in Pt Med Stat, Meds/Allgs Chart Reviewed, Consent Obtained/Reviewed and Anes Risks/Benef Reviewed Patient Risk: Intermediate Procedure Risk: Low Assessment/Block/Sedation in SS: Assess/Block/Sedation-SS Anesthetic Plan Anesthetic Plan: GA Disposition: Standard PACU
[2021-05-11] MEDS: Atorvastatin Calcium 80 MG TABLET PO (10:51)
[2021-05-11] MEDS: Apixaban 5 MG TABLET PO ×2 (10:51→21:02)
[2021-05-11] MEDS: amLODIPine Besylate 5 MG TABLET PO (10:51)
[2021-05-11] MEDS: Venlafaxine HCl ER 150 MG CAP.ER.24H PO (10:51)
[2021-05-11] MEDS: Omeprazole 20 MG CAPSULE.DR PO ×2 (10:51→17:00)
[2021-05-11] MEDS: Metoprolol Succinate ER 50 MG TAB.ER.24H PO (10:51)
[2021-05-11] MEDS: Sucralfate 1 GM TABLET PO ×3 (10:51→21:02)
[2021-05-11] MEDS: Levothyroxine Sodium 100 MCG TABLET PO (10:51)
--- NOTE | 2021-05-11 12:34 | P.PNPSI_ITS ---
Subjective Subjective Date of Service: 05/11/21 Reason For Visit: Depression Subjective Notes: Conditional Voluntary Interim History: The patient reported improvement of her mood with ECT. She complaints of some residual dysphoria but overall, she has noticed an im provement. Her main barrier for outpatient ECT is her lack of support. She doesn't have a ride or people to help her to sign in and out of the hospital for outpatient ECT. Medication Compliance: Yes Mental Status Exam Mental Status Exam Patient Appearance: Well Grooomed Patient Orientation: Person, Place, Time and Situation Level of Consciousness: Awake Patient Behavior: Appropriate and Cooperative Mood Description: Depressed Affect Description: Withdrawn and Anxious Patient Cognition Impaired: No Ability to Follow Directions: Good Speech Pattern: Clear Memory Description: Intact Hallucinations: None Delusions: Not Present Thought Process: Goal Oriented and Linear Thought Content: positive for Circumstantial Judgement: Fair Diagnostics Vital Signs (24Hr): Vital Signs - 24 hr 05/10/21 18:00 05/10/21 19:59 05/11/21 06:00 Temperature 97.3 F 97.9 F 97.6 F Pulse Rate 84 77 77 Respiratory Rate 18 18 15 Blood Pressure 116/66 126/64 127/59 L Pulse Oximetry 93 95 98 05/11/21 08:20 05/11/21 09:43 05/11/21 09:48 Temperature 97.1 F 98.4 F Pulse Rate 87 81 91 Respiratory Rate 16 16 18 Blood Pressure 149/77 H 150/82 H 139/81 Pulse Oximetry 98 90 L 96 05/11/21 09:53 05/11/21 09:58 05/11/21 10:13 Temperature 98.4 F Pulse Rate 88 85 90 Respiratory Rate 17 20 17 Blood Pressure 143/89 H 141/80 H 141/80 H Pulse Oximetry 93 95 96 Body Mass Index 37.4 Labs Results: 05/02/21 15:23 05/08/21 09:25 Imaging Radiology Impressions: ITS Impressions Chest X-Ray 05/01/21 18:14 IMPRESSION: Unremarkable chest examination. Medications Medications Current Medications Generic Name Dose Route Start Last Admin Trade Name Freq PRN Reason Stop Dose Admin Acetaminophen 650 mg 05/01/21 23:45 05/07/21 09:56 Acetaminophen 325 Mg Tablet PO 650 mg Q6H PRN Administration Headache/Pain Mild Scale (1-3) Acetaminophen 650 mg 05/09/21 13:34 Acetaminophen 325 Mg Tablet PO ONCE PRN Pain, Mild (Pain Scale 1-3) Al Hydroxide/Mg Hydroxide 30 ml 05/01/21 23:45 05/08/21 09:56 Magnesium Hydrox/Alum Hydrox 30 Ml Oral.Susp PO 30 ml Q6H PRN Administration Heartburn/Nausea Amlodipine Besylate 5 mg 05/02/21 09:00 05/11/21 10:51 Amlodipine Besylate 5 Mg Tablet PO 5 mg DAILY [facility] Administration Protocol Apixaban 5 mg 05/02/21 09:00 05/11/21 10:51 Apixaban 5 Mg Tablet PO 5 mg BID XAVI Administration Atorvastatin Calcium 80 mg 05/02/21 09:00 05/11/21 10:51 Atorvastatin Calcium 80 Mg Tablet PO 80 mg DAILY XAVI Administration Lactated Ringer's 500 mls @ 20 mls/hr 05/11/21 09:30 05/11/21 11:45 Lr IVCONT Not Given .Q24H [facility] Levothyroxine Sodium 100 mcg 05/02/21 06:30 05/11/21 10:51 Levothyroxine Sodium 100 Mcg Tablet PO 100 mcg DAILY@0630 [facility] Administration Loperamide HCl 2 mg 05/01/21 23:45 05/07/21 09:49 Loperamide Hcl 2 Mg Capsule PO 2 mg DAILY PRN Administration Diarrhea Magnesium Hydroxide 30 ml 05/01/21 23:45 Milk Of Magnesia 30 Ml Oral.Susp PO DAILY PRN Constipation Metoprolol Succinate 50 mg 05/04/21 09:00 05/11/21 10:51 Metoprolol Succinate Er 50 Mg Tab.Er.24h PO 50 mg DAILY [facility] Administration Protocol Non-Formulary Medication 1 gm 05/01/21 23:45 Diclofenac Sodium TOPICAL QID PRN joint pain Omeprazole 20 mg 05/03/21 17:30 05/11/21 10:51 Omeprazole 20 Mg Capsule.Dr PO 20 mg BID@0630,1630 [facility] Administration Ondansetron HCl 4 mg 05/02/21 06:08 05/05/21 01:15 Ondansetron Odt 4 Mg Tab.Rapdis TRANSLINGU 4 mg Q8H PRN Administration Nausea and Vomiting Ondansetron HCl 4 mg 05/09/21 13:34 Ondansetron Hcl 4 Mg/2 Ml Vial IVPUSH ONCE PRN Nausea and Vomiting Pharmacy Consult 1 each 05/01/21 16:40 Consult Rx Perform Med Rec MISCELLANE ONCE PRN Consult order Senna/Docusate Sodium 1 tab 05/10/21 13:19 05/10/21 14:30 Sennosides/Docusate Sodium Tablet PO 1 tab BID PRN Administration Constipation Sucralfate 1 gm 05/08/21 11:30 05/11/21 11:55 Sucralfate 1 Gm Tablet PO Not Given QIDACHS XAVI Trazodone HCl 50 mg 05/01/21 23:45 05/09/21 22:20 Trazodone Hcl 50 Mg Tablet PO 50 mg BEDTIME PRN Administration Insomnia Venlafaxine HCl 150 mg 05/04/21 09:00 05/11/21 10:51 Venlafaxine Hcl Er 150 Mg Cap.Er.24h PO 150 mg DAILY XAVI Administration Allergies Allergies Allergy/AdvReac Type Severity Reaction Status Date / Time hornet venom [HORNETS] Allergy Unknown UNKNOWN Verified 12/28/20 13:03 morphine [MORPHINE] Allergy Unknown UNKNOWN Verified 12/28/20 13:03 tetracycline [TETRACYCLINE] Allergy Unknown UNKNOWN Verified 12/28/20 13:03 aspirin AdvReac Unknown nose bleeds Verified 12/28/20 13:04 Assessment & Plan Assessment & Plan (1) Preoperative cardiovascular examination: Status: Acute Code(s): Z01.810 - Encounter for preprocedural cardiovascular examination Assessment and Plan: Pre ECT cardiovascular examination elderly woman with known history of atrial fibrillation, currently rate control atrial fibrillation without any symptoms of angina or any signs of cardiac decompensation. Clinically she is doing well. She has good physical capacity. At current time I do not think patient is at unduly high risk for any cardiovascular events after ECT. Expect that could be slightly fast heart rate with ECT in patients with atrial fibrillation. This can be easily managed with short-acting IV Cardizem or esmolol in the perioperative. If needed. Meanwhile will increase metoprolol to 50 mg daily, will give additional 25 mg dose tonight. EKG post ECT to be performed. (2) Atrial fibrillation: Status: Acute Code(s): I48.91 - Unspecified atrial fibrillation Assessment and Plan: Atrial fibrillation as above persistent, currently without any symptoms, or signs of cardiac decompensation. Continue rate control approach for now. Increase metoprolol to 50 mg daily. Continue full oral anticoagulation, currently on Eliquis 5 mg b.i.d.. Continue aggressive blood pressure control. Will set up for followup as outpatient was discharged from [facility] in to 2-[address] Alanis (3) MDD (major depressive disorder), recurrent episode, severe: Status: Acute Code(s): F33.2 - Major depressive disorder, recurrent severe without psychotic features Assessment and Plan: Elderly female with MDD that has failed to several medication trials and historically, she improved with ECT. Now, admitted for treatment. Continue ECT no cardiac or cognitive issues. EKG post ECT today Greater than 50% of the session was spent on counseling and/or coordination of care Reason for contiued inpatient stay Substantial Risk for: inability to function, rapid decompensation and med/psych decompensation
--- NOTE | 2021-05-11 22:07 | HO.ECTPROC ---
ECT Procedure Note Diagnosis/Treatment Date of Service: 05/13/21 Diagnosis: Major Depressive Disorder Current Treatment Number: 4 Treatment: Series ECT Settings Device: THYMATRON DGx Electrode Placement: Right Unilateral Program/Pulse Width: 0.25 Energy Percent: 70 Seizure Duration By EEG (in seconds): 36 Medications Administration General Anesthetic: Etomidate (14) Muscle Relaxant: Succinylcholine (100) Ancillary Medications Analgesics: Torodol - Pre ECT Anti-emetics: Zofran - Pre ECT Cardiovascular Medications: Esmolol (5) Miscillaneous Medications: Propofol Airway Management Airway Management: Bag Mask Ventilation Treatment Recommendations No Changes Recommended: No change
[2021-05-12 06:00] VITALS: BP 137/64; PULSE 74; RESP 16; TEMP 36.9; O2SAT 94
[2021-05-12] MEDS: Omeprazole 20 MG CAPSULE.DR PO ×2 (06:14→16:09)
[2021-05-12] MEDS: Sucralfate 1 GM TABLET PO ×4 (06:15→20:30)
[2021-05-12] MEDS: Levothyroxine Sodium 100 MCG TABLET PO (06:15)
[2021-05-12 08:00] VITALS: BP 126/66; PULSE 80
[2021-05-12] MEDS: Apixaban 5 MG TABLET PO ×2 (08:00→20:30)
[2021-05-12] MEDS: amLODIPine Besylate 5 MG TABLET PO (08:00)
[2021-05-12] MEDS: Venlafaxine HCl ER 150 MG CAP.ER.24H PO (08:00)
[2021-05-12 08:01] VITALS: BP 126/66; PULSE 80
[2021-05-12] MEDS: Atorvastatin Calcium 80 MG TABLET PO (08:01)
[2021-05-12] MEDS: Metoprolol Succinate ER 50 MG TAB.ER.24H PO (08:01)
--- NOTE | 2021-05-12 10:22 | P.PNPSI_ITS ---
Subjective Subjective Date of Service: 05/12/21 Reason For Visit: Depression Subjective Notes: Conditional Voluntary Guardianship: No Medical Problems Affecting Mental Status: No Interim History: Patient doing well with ECT has 1 scheduled prior to discharge willing to consider maintenance treatment Medication Compliance: Yes Side effects from medications: No Mental Status Exam Mental Status Exam Narrative: Full range of affect less depressed denies self-harming thoughts anxious about procedure Patient Appearance: Well Grooomed Patient Orientation: Person, Place, Time and Situation Level of Consciousness: Awake Patient Behavior: Appropriate and Cooperative Mood Description: Depressed (Less depressed improving) Affect Description: Withdrawn and Anxious Patient Cognition Impaired: No Ability to Follow Directions: Good Speech Pattern: Clear Memory Description: Intact Hallucinations: None Delusions: Not Present Thought Process: Goal Oriented and Linear Thought Content: positive for Circumstantial Judgement: Fair Diagnostics Vital Signs (24Hr): Vital Signs - 24 hr 05/11/21 18:00 05/12/21 06:00 05/12/21 08:00 Temperature 98.0 F 98.4 F Pulse Rate 68 74 80 Respiratory Rate 16 Blood Pressure 114/63 137/64 126/66 Pulse Oximetry 94 94 05/12/21 08:01 Temperature Pulse Rate 80 Respiratory Rate Blood Pressure 126/66 Pulse Oximetry Body Mass Index 37.4 Labs Results: 05/02/21 15:23 05/08/21 09:25 Imaging Radiology Impressions: ITS Impressions Chest X-Ray 05/01/21 18:14 IMPRESSION: Unremarkable chest examination. Medications Medications Current Medications Generic Name Dose Route Start Last Admin Trade Name Freq PRN Reason Stop Dose Admin Acetaminophen 650 mg 05/01/21 23:45 05/07/21 09:56 Acetaminophen 325 Mg Tablet PO 650 mg Q6H PRN Administration Headache/Pain Mild Scale (1-3) Acetaminophen 650 mg 05/09/21 13:34 Acetaminophen 325 Mg Tablet PO ONCE PRN Pain, Mild (Pain Scale 1-3) Al Hydroxide/Mg Hydroxide 30 ml 05/01/21 23:45 05/08/21 09:56 Magnesium Hydrox/Alum Hydrox 30 Ml Oral.Susp PO 30 ml Q6H PRN Administration Heartburn/Nausea Amlodipine Besylate 5 mg 05/02/21 09:00 05/12/21 08:00 Amlodipine Besylate 5 Mg Tablet PO 5 mg DAILY XAVI Administration Protocol Apixaban 5 mg 05/02/21 09:00 05/12/21 08:00 Apixaban 5 Mg Tablet PO 5 mg BID XAVI Administration Atorvastatin Calcium 80 mg 05/02/21 09:00 05/12/21 08:01 Atorvastatin Calcium 80 Mg Tablet PO 80 mg DAILY XAVI Administration Lactated Ringer's 500 mls @ 20 mls/hr 05/11/21 09:30 05/11/21 11:45 Lr IVCONT Not Given .Q24H [facility] Levothyroxine Sodium 100 mcg 05/02/21 06:30 05/12/21 06:15 Levothyroxine Sodium 100 Mcg Tablet PO 100 mcg DAILY@0630 XAVI Administration Loperamide HCl 2 mg 05/01/21 23:45 05/07/21 09:49 Loperamide Hcl 2 Mg Capsule PO 2 mg DAILY PRN Administration Diarrhea Magnesium Hydroxide 30 ml 05/01/21 23:45 Milk Of Magnesia 30 Ml Oral.Susp PO DAILY PRN Constipation Metoprolol Succinate 50 mg 05/04/21 09:00 05/12/21 08:01 Metoprolol Succinate Er 50 Mg Tab.Er.24h PO 50 mg DAILY XAVI Administration Protocol Non-Formulary Medication 1 gm 05/01/21 23:45 Diclofenac Sodium TOPICAL QID PRN joint pain Omeprazole 20 mg 05/03/21 17:30 05/12/21 06:14 Omeprazole 20 Mg Capsule.Dr PO 20 mg BID@0630,1630 [facility] Administration Ondansetron HCl 4 mg 05/02/21 06:08 05/05/21 01:15 Ondansetron Odt 4 Mg Tab.Rapdis TRANSLINGU 4 mg Q8H PRN Administration Nausea and Vomiting Ondansetron HCl 4 mg 05/09/21 13:34 Ondansetron Hcl 4 Mg/2 Ml Vial IVPUSH ONCE PRN Nausea and Vomiting Pharmacy Consult 1 each 05/01/21 16:40 Consult Rx Perform Med Rec MISCELLANE ONCE PRN Consult order Senna/Docusate Sodium 1 tab 05/10/21 13:19 05/10/21 14:30 Sennosides/Docusate Sodium Tablet PO 1 tab BID PRN Administration Constipation Sucralfate 1 gm 05/08/21 11:30 05/12/21 06:15 Sucralfate 1 Gm Tablet PO 1 gm QIDACHS [facility] Administration Trazodone HCl 50 mg 05/01/21 23:45 05/09/21 22:20 Trazodone Hcl 50 Mg Tablet PO 50 mg BEDTIME PRN Administration Insomnia Venlafaxine HCl 150 mg 05/04/21 09:00 05/12/21 08:00 Venlafaxine Hcl Er 150 Mg Cap.Er.24h PO 150 mg DAILY XAVI Administration Allergies Allergies Allergy/AdvReac Type Severity Reaction Status Date / Time hornet venom [HORNETS] Allergy Unknown UNKNOWN Verified 12/28/20 13:03 morphine [MORPHINE] Allergy Unknown UNKNOWN Verified 12/28/20 13:03 tetracycline [TETRACYCLINE] Allergy Unknown UNKNOWN Verified 12/28/20 13:03 aspirin AdvReac Unknown nose bleeds Verified 12/28/20 13:04 Assessment & Plan Assessment & Plan (1) Preoperative cardiovascular examination: Status: Acute Code(s): Z01.810 - Encounter for preprocedural cardiovascular examination Assessment and Plan: Pre ECT cardiovascular examination elderly woman with known history of atrial fibrillation, currently rate control atrial fibrillation without any symptoms of angina or any signs of cardiac decompensation. Clinically she is doing well. She has good physical capacity. At current time I do not think patient is at un duly high risk for any cardiovascular events after ECT. Expect that could be slightly fast heart rate with ECT in patients with atrial fibrillation. This can be easily managed with short-acting IV Cardizem or esmolol in the perioperative. If needed. Meanwhile will increase metoprolol to 50 mg daily, will give additional 25 mg dose tonight. EKG post ECT to be performed. (2) Atrial fibrillation: Status: Acute Code(s): I48.91 - Unspecified atrial fibrillation Assessment and Plan: Atrial fibrillation as above persistent, currently without any symptoms, or signs of cardiac decompensation. Continue rate control approach for now. Increase metoprolol to 50 mg daily. Continue full oral anticoagulation, currently on Eliquis 5 mg b.i.d.. Continue aggressive blood pressure control. Will set up for followup as outpatient was discharged from [facility] in to 2-[address] Alanis (3) MDD (major depressive disorder), recurrent episode, severe: Status: Acute Code(s): F33.2 - Major depressive disorder, recurrent severe without psychotic features Assessment and Plan: Elderly female with MDD that has failed to several medication trials and historically, she improved with ECT. Now, admitted for treatment. Continue ECT no cardiac or cognitive issues. Seems ready for discharge shortly Greater than 50% of the session was spent on counseling and/or coordination of care Reason for contiued inpatient stay Substantial Risk for: rapid decompensation
--- NOTE | 2021-05-12 11:37 | HO.POSTANES ---
Post Anesthesia Evaluation Post Anesthesia Evaluation Vital Signs: Vital Signs Temp Pulse Resp BP Pulse Ox 05/12/21 08:01 80 126/66 05/12/21 08:00 80 126/66 05/12/21 06:00 98.4 F 74 16 137/64 94 Anesthesia: General Mental Status: Awake Pain Control: Satisfactory Nausea/Vomiting: None Hydration: Adequate Anesthesia-Related Issues: No Anes. Related Issues
[2021-05-12 17:18] VITALS: BP 142/70; PULSE 82; RESP 20; TEMP 36.5; O2SAT 95
[2021-05-13 06:00] VITALS: BP 130/60; PULSE 76; RESP 16; TEMP 36.8; O2SAT 96
[2021-05-13] MEDS: Omeprazole 20 MG CAPSULE.DR PO ×2 (06:15→16:28)
[2021-05-13] MEDS: Levothyroxine Sodium 100 MCG TABLET PO (06:15)
[2021-05-13] MEDS: Sucralfate 1 GM TABLET PO ×4 (06:34→19:53)
[2021-05-13 07:58] VITALS: BP 136/68; PULSE 78
[2021-05-13] MEDS: Metoprolol Succinate ER 50 MG TAB.ER.24H PO (07:58)
[2021-05-13] MEDS: Venlafaxine HCl ER 150 MG CAP.ER.24H PO (07:58)
[2021-05-13 07:59] VITALS: BP 136/68; PULSE 78
[2021-05-13] MEDS: Atorvastatin Calcium 80 MG TABLET PO (07:59)
[2021-05-13] MEDS: amLODIPine Besylate 5 MG TABLET PO (07:59)
[2021-05-13] MEDS: Apixaban 5 MG TABLET PO ×2 (07:59→19:53)
[2021-05-13 18:00] VITALS: BP 142/65; PULSE 76; TEMP 36.3; O2SAT 98
--- NOTE | 2021-05-13 21:54 | HO.PSYCHPN ---
Subjective Subjective Date of Service: 05/13/21 Reason For Visit: Depression Subjective Notes: Conditional Voluntary Guardianship: No Medical Problems Affecting Mental Status: No Interim History: patient gradually improving with ECT agreeable to ECT tomorrow and then has arranged a ride Medication Compliance: Yes Side effects from medications: No Mental Status Exam Mental Status Exam Narrative: Full range of affect less depressed denies self-harming thoughts anxious about procedure Patient Appearance: Well Grooomed Patient Orientation: Person, Place, Time and Situation Level of Consciousness: Awake Patient Behavior: Appropriate and Cooperative Mood Description: Depressed (Less depressed improving) Affect Description: Withdrawn and Anxious Patient Cognition Impaired: No Ability to Follow Directions: Good Speech Pattern: Clear Memory Description: Intact Hallucinations: None Delusions: Not Present Thought Process: Goal Oriented and Linear Thought Content: positive for Circumstantial Judgement: Fair Diagnostics Vital Signs (24Hr): Vital Signs - 24 hr 05/13/21 06:00 05/13/21 07:58 05/13/21 07:59 Temperature 98.3 F Pulse Rate 76 78 78 Respiratory Rate 16 Blood Pressure 130/60 136/68 136/68 Pulse Oximetry 96 05/13/21 18:00 Temperature 97.4 F Pulse Rate 76 Respiratory Rate Blood Pressure 142/65 H Pulse Oximetry 98 Body Mass Index 37.4 Labs Results: 05/02/21 15:23 05/08/21 09:25 Imaging Radiology Impressions: ITS Impressions Chest X-Ray 05/01/21 18:14 IMPRESSION: Unremarkable chest examination. Medications Medications Current Medications Generic Name Dose Route Start Last Admin Trade Name Freq PRN Reason Stop Dose Admin Acetaminophen 650 mg 05/01/21 23:45 05/07/21 09:56 Acetaminophen 325 Mg Tablet PO 650 mg Q6H PRN Administration Headache/Pain Mild Scale (1-3) Acetaminophen 650 mg 05/09/21 13:34 Acetaminophen 325 Mg Tablet PO ONCE PRN Pain, Mild (Pain Scale 1-3) Al Hydroxide/Mg Hydroxide 30 ml 05/01/21 23:45 05/08/21 09:56 Magnesium Hydrox/Alum Hydrox 30 Ml Oral.Susp PO 30 ml Q6H PRN Administration Heartburn/Nausea Amlodipine Besylate 5 mg 05/02/21 09:00 05/13/21 07:59 Amlodipine Besylate 5 Mg Tablet PO 5 mg DAILY XAVI Administration Protocol Apixaban 5 mg 05/02/21 09:00 05/13/21 19:53 Apixaban 5 Mg Tablet PO 5 mg BID XAVI Administration Atorvastatin Calcium 80 mg 05/02/21 09:00 05/13/21 07:59 Atorvastatin Calcium 80 Mg Tablet PO 80 mg DAILY XAVI Administration Levothyroxine Sodium 100 mcg 05/02/21 06:30 05/13/21 06:15 Levothyroxine Sodium 100 Mcg Tablet PO 100 mcg DAILY@0630 XAVI Administration Loperamide HCl 2 mg 05/01/21 23:45 05/07/21 09:49 Loperamide Hcl 2 Mg Capsule PO 2 mg DAILY PRN Administration Diarrhea Magnesium Hydroxide 30 ml 05/01/21 23:45 Milk Of Magnesia 30 Ml Oral.Susp PO DAILY PRN Constipation Metoprolol Succinate 50 mg 05/04/21 09:00 05/13/21 07:58 Metoprolol Succinate Er 50 Mg Tab.Er.24h PO 50 mg DAILY XAVI Administration Protocol Non-Formulary Medication 1 gm 05/01/21 23:45 Diclofenac Sodium TOPICAL QID PRN joint pain Omeprazole 20 mg 05/03/21 17:30 05/13/21 16:28 Omeprazole 20 Mg Capsule.Dr PO 20 mg BID@0630,1630 XAVI Administration Ondansetron HCl 4 mg 05/02/21 06:08 05/05/21 01:15 Ondansetron Odt 4 Mg Tab.Rapdis TRANSLINGU 4 mg Q8H PRN Administration Nausea and Vomiting Ondansetron HCl 4 mg 05/09/21 13:34 Ondansetron Hcl 4 Mg/2 Ml Vial IVPUSH ONCE PRN Nausea and Vomiting Pharmacy Consult 1 each 05/01/21 16:40 Consult Rx Perform Med Rec MISCELLANE ONCE PRN Consult order Senna/Docusate Sodium 1 tab 05/10/21 13:19 05/10/21 14:30 Sennosides/Docusate Sodium Tablet PO 1 tab BID PRN Administration Constipation Sucralfate 1 gm 05/08/21 11:30 05/13/21 19:53 Sucralfate 1 Gm Tablet PO 1 gm QIDACHS XAVI Administration Trazodone HCl 50 mg 05/01/21 23:45 05/09/21 22:20 Trazodone Hcl 50 Mg Tablet PO 50 mg BEDTIME PRN Administration Insomnia Venlafaxine HCl 150 mg 05/04/21 09:00 05/13/21 07:58 Venlafaxine Hcl Er 150 Mg Cap.Er.24h PO 150 mg DAILY XAVI Administration Allergies Allergies Allergy/AdvReac Type Severity Reaction Status Date / Time hornet venom [HORNETS] Allergy Unknown UNKNOWN Verified 12/28/20 13:03 morphine [MORPHINE] Allergy Unknown UNKNOWN Verified 12/28/20 13:03 tetracycline [TETRACYCLINE] Allergy Unknown UNKNOWN Verified 12/28/20 13:03 aspirin AdvReac Unknown nose bleeds Verified 12/28/20 13:04 Assessment & Plan Assessment & Plan (1) Preoperative cardiovascular examination: Status: Acute Code(s): Z01.810 - Encounter for preprocedural cardiovascular examination Assessment and Plan: Pre ECT cardiovascular examination elderly woman with known history of atrial fibrillation, currently rate control atrial fibrillation without any symptoms of angina or any signs of cardiac decompensation. Clinically she is doing well. She has good physical capacity. At current time I do not think patient is at unduly high risk for any cardiovascular events after ECT. Expect that could be slightly fast heart rate with ECT in patients with atrial fibrillation. This can be easily managed with short-acting IV Cardizem or esmolol in the perioperative. If needed. Meanwhile will increase metoprolol to 50 mg daily, will give additional 25 mg dose tonight. EKG post ECT to be performed. (2) Atrial fibrillation: Status: Acute Code(s): I48.91 - Unspecified atrial fibrillation Assessment and Plan: Atrial fibrillation as above persistent, currently without any symptoms, or signs of cardiac decompensation. Continue rate control approach for now. Increase metoprolol to 50 mg daily. Continue full oral anticoagulation, currently on Eliquis 5 mg b.i.d.. Continue aggressive blood pressure control. Will set up for followup as outpatient was discharged from [facility] in to 2-[address] Alanis (3) MDD (major depressive disorder), recurrent episode, severe: Status: Acute Code(s): F33.2 - Major depressive disorder, recurrent severe without psychotic features Assessment and Plan: Elderly female with MDD that has failed to several medication trials and historically, she improved with ECT. Now, admitted for treatment. Continue ECT no cardiac or cognitive issues. Seems ready for discharge shortly Greater than 50% of the session was spent on counseling and/or coordination of care Reason for contiued inpatient stay Substantial Risk for: inability to function and rapid decompensation
[2021-05-14] VITALS (12 sets, daily range): BP systolic 113–153; BP diastolic 62–105; PULSE 88–103; RESP 16–18; TEMP 36.2–36.8; O2SAT 94–98; BMI 37.4
[2021-05-14] MEDS: traZODone HCL 50 MG TABLET PO (02:17)
--- NOTE | 2021-05-14 07:09 | P.CONAN_ITS ---
[facility] Active Problems Active Problems: All Active Problems (Updated 05/03/21 @ 15:58 by Oscar Mcneill MD) MDD (major depressive disorder), recurrent episode, severe (Acute) Atrial fibrillation (Acute) Preoperative cardiovascular examination (Acute) Lymphoblastic leukemia (Acute) Depression (Acute) Essential hypertension (Acute) PAF (paroxysmal atrial fibrillation) (Acute) Past Medical History Medical History Essential hypertension High cholesterol Hypothyroidism PAF (paroxysmal atrial fibrillation) Family History Family History Father FH: prostate cancer Mother CVD (cardiovascular disease) Surgical History Surgical History No pertinent past surgical history Social History Social History Household Members: None Housing: Other Do you presently have visiting nurse or other home services: No Patient Tobacco Use Status: Never used Tobacco service: No Meds Allergies Allergy/AdvReac Type Severity Reaction Status Date / Time hornet venom [HORNETS] Allergy Unknown UNKNOWN Verified 12/28/20 13:03 morphine [MORPHINE] Allergy Unknown UNKNOWN Verified 12/28/20 13:03 tetracycline [TETRACYCLINE] Allergy Unknown UNKNOWN Verified 12/28/20 13:03 aspirin AdvReac Unknown nose bleeds Verified 12/28/20 13:04 Active Medications: Current Medications Generic Name Dose Route Start Last Admin Trade Name Freq PRN Reason Stop Dose Admin Acetaminophen 650 mg 05/01/21 23:45 05/07/21 09:56 Acetaminophen 325 Mg Tablet PO 650 mg Q6H PRN Administration Headache/Pain Mild Scale (1-3) Acetaminophen 650 mg 05/09/21 13:34 Acetaminophen 325 Mg Tablet PO ONCE PRN Pain, Mild (Pain Scale 1-3) Al Hydroxide/Mg Hydroxide 30 ml 05/01/21 23:45 05/08/21 09:56 Magnesium Hydrox/Alum Hydrox 30 Ml Oral.Susp PO 30 ml Q6H PRN Administration Heartburn/Nausea Amlodipine Besylate 5 mg 05/02/21 09:00 05/13/21 07:59 Amlodipine Besylate 5 Mg Tablet PO 5 mg DAILY XAVI Administration Protocol Apixaban 5 mg 05/02/21 09:00 05/13/21 19:53 Apixaban 5 Mg Tablet PO 5 mg BID XAVI Administration Atorvastatin Calcium 80 mg 05/02/21 09:00 05/13/21 07:59 Atorvastatin Calcium 80 Mg Tablet PO 80 mg DAILY XAVI Administration Levothyroxine Sodium 100 mcg 05/02/21 06:30 05/13/21 06:15 Levothyroxine Sodium 100 Mcg Tablet PO 100 mcg DAILY@0630 XAVI Administration Loperamide HCl 2 mg 05/01/21 23:45 05/07/21 09:49 Loperamide Hcl 2 Mg Capsule PO 2 mg DAILY PRN Administration Diarrhea Magnesium Hydroxide 30 ml 05/01/21 23:45 Milk Of Magnesia 30 Ml Oral.Susp PO DAILY PRN Constipation Metoprolol Succinate 50 mg 05/04/21 09:00 05/13/21 07:58 Metoprolol Succinate Er 50 Mg Tab.Er.24h PO 50 mg DAILY XAVI Administration Protocol Non-Formulary Medication 1 gm 05/01/21 23:45 Diclofenac Sodium TOPICAL QID PRN joint pain Omeprazole 20 mg 05/03/21 17:30 05/13/21 16:28 Omeprazole 20 Mg Capsule. PO 20 mg BID@0630,1630 XAVI Administration Ondansetron HCl 4 mg 05/02/21 06:08 05/05/21 01:15 Ondansetron Odt 4 Mg Tab.Rapdis TRANSLINGU 4 mg Q8H PRN Administration Nausea and Vomiting Ondansetron HCl 4 mg 05/09/21 13:34 Ondansetron Hcl 4 Mg/2 Ml Vial IVPUSH ONCE PRN Nausea and Vomiting Pharmacy Consult 1 each 05/01/21 16:40 Consult Rx Perform Med Rec MISCELLANE ONCE PRN Consult order Senna/Docusate Sodium 1 tab 05/10/21 13:19 05/10/21 14:30 Sennosides/Docusate Sodium Tablet PO 1 tab BID PRN Administration Constipation Sucralfate 1 gm 05/08/21 11:30 05/13/21 19:53 Sucralfate 1 Gm Tablet PO 1 gm QIDACHS XAVI Administration Trazodone HCl 50 mg 05/01/21 23:45 05/14/21 02:17 Trazodone Hcl 50 Mg Tablet PO 50 mg BEDTIME PRN Administration Insomnia Venlafaxine HCl 150 mg 05/04/21 09:00 05/13/21 07:58 Venlafaxine Hcl Er 150 Mg Cap.Er.24h PO 150 mg DAILY XAVI Administration Home Medications Medication Instructions Recorded Confirmed Last Taken Type desvenlafaxine succinate 50 mg 50 mg PO DAILY 12/28/20 05/01/21 Unknown History tablet,extended release 24 hr diclofenac sodium 1 % topical gel 1 g TOPICAL QID PRN 12/28/20 05/01/21 Unknown History dicyclomine 20 mg tablet 20 mg PO TID 12/28/20 05/01/21 05/01/21 History loperamide 2 mg capsule 2 mg PO DAILY PRN 12/28/20 05/01/21 Unknown History atorvastatin 80 mg PO DAILY 05/01/21 05/01/21 05/01/21 History levothyroxine 100 mcg PO DAILY 05/01/21 05/01/21 05/01/21 History lorazepam [Ativan] 0.25 mg PO DAILY PRN 05/01/21 05/01/21 Unknown History lorazepam [Ativan] 0.5 mg PO BEDTIME PRN 05/01/21 05/01/21 Unknown History metformin 500 mg PO DAILY 05/01/21 05/01/21 Unknown History Exam Exam Date and Time: May 14, 2021 0709 Height,Weight and Vital Signs: Height 5 ft 4 in Weight 98.883 kg Last Vital Signs Temp 98.2 F 05/14/21 06:31 Pulse 88 05/14/21 06:31 Resp 16 05/14/21 06:31 BP 152/69 H 05/14/21 06:31 Pulse Ox 98 05/14/21 06:31 Pertinent Lab Results Pertinent Lab Results: Laboratory Tests 05/01/21 05/01/21 05/01/21 17:40 17:40 18:25 WBC 27.1 H RBC 5.36 Hgb 13.6 Hct 43.9 MCV 81.9 MCH 25.4 L MCHC 31.0 RDW 15.7 Plt Count 273 MPV 11.9 Immature Gran % (Auto) Cancelled Neut % (Auto) Cancelled Lymph % (Auto) Cancelled [place] % (Auto) Cancelled Eos % (Auto) Cancelled Baso % (Auto) Cancelled Lymph # (Auto) Cancelled [place] # (Auto) Cancelled Eos # (Auto) Cancelled Baso # (Auto) Cancelled Abs Immat Gran (auto) Cancelled Absolute Neuts (auto) Cancelled Absolute Nucleated RBC 0.000 Nucleated RBC % (auto) 0.0 Neutrophils % (Manual) 17 L Band Neutrophils % 1 L Lymphocytes % (Manual) 20 Atypical Lymphs % (Man) 57 H Monocytes % (Manual) 5 Abs Neuts (Manual) 4.9 Lymphocytes # (Manual) 5.4 H Atyp Lymphs # (Manual) 15.4 Monocytes # (Manual) 1.4 H Platelet Estimate NORMAL Large Platelets PRESENT Plt Morphology Comment NOTED RBC Morphology NOTED Stomatocytes 1+ (5-14) Smear Tech's Comments MANUAL DIFF Smear Path Review SEE NOTE Sodium 144 Potassium 4.0 Chloride 111 H Carbon Dioxide 23 Anion Gap 14 BUN 13 Creatinine 0.74 Estim Creat Clear Calc 79.0 Estimated GFR > 60 POC Glucose Random Glucose 95 Estimat Average Glucose Hemoglobin A1c % Calcium 9.7 Total Bilirubin 0.7 Direct Bilirubin 0.2 AST 19 ALT 14 Alkaline Phosphatase 94 Total Protein 6.9 Albumin 4.3 Triglycerides Cholesterol LDL Cholesterol, Calc HDL Cholesterol 25-OH Vitamin D Total TSH Urine Color Urine Appearance Urine pH Ur Specific [place] Urine Protein Urine Glucose (UA) Urine Ketones Urine Blood Urine Nitrite Ur Leukocyte Esterase Urine Opiates Screen Ur Barbiturates Screen Ur Phencyclidine Scrn Ur Amphetamines Screen U Benzodiazepines Scrn Urine Cocaine Screen U Marijuana (THC) Screen COVID-19 ([facility]IL[facility]) Negative COVID-19 Clin Com See Note 05/01/21 05/01/21 05/02/21 19:24 19:24 15:23 WBC 23.8 H RBC 5.19 Hgb 13.4 Hct 42.8 MCV 82.5 MCH 25.8 L MCHC 31.3 RDW 15.7 Plt Count 273 MPV 12.0 Immature Gran % (Auto) 0.2 Neut % (Auto) 23.1 L Lymph % (Auto) 72.1 H [place] % (Auto) 3.5 Eos % (Auto) 0.8 Baso % (Auto) 0.3 Lymph # (Auto) 17.2 H [place] # (Auto) 0.8 Eos # (Auto) 0.2 Baso # (Auto) 0.1 Abs Immat Gran (auto) 0.04 H Absolute Neuts (auto) 5.5 Absolute Nucleated RBC 0.040 H Nucleated RBC % (auto) 0.2 Neutrophils % (Manual) Band Neutrophils % Lymphocytes % (Manual) Atypical Lymphs % (Man) Monocytes % (Manual) Abs Neuts (Manual) Lymphocytes # (Manual) Atyp Lymphs # (Manual) Monocytes # (Manual) Platelet Estimate Large Platelets Plt Morphology Comment RBC Morphology Stomatocytes Smear Tech's Comments VERIFIED Smear Path Review Sodium Potassium Chloride Carbon Dioxide Anion Gap BUN Creatinine Estim Creat Clear Calc Estimated GFR POC Glucose Random Glucose Estimat Average Glucose Hemoglobin A1c % Calcium Total Bilirubin Direct Bilirubin AST ALT Alkaline Phosphatase Total Protein Albumin Triglycerides Cholesterol LDL Cholesterol, Calc HDL Cholesterol 25-OH Vitamin D Total TSH Urine Color YELLOW Urine Appearance HAZY Urine pH 6.0 Ur Specific [place] >= 1.030 H Urine Protein NEG Urine Glucose (UA) NEG Urine Ketones NEG Urine Blood NEG Urine Nitrite NEG Ur Leukocyte Esterase NEG Urine Opiates Screen Not Detected Ur Barbiturates Screen Not Detected Ur Phencyclidine Scrn Not Detected Ur Amphetamines Screen Not Detected U Benzodiazepines Scrn Not Detected Urine Cocaine Screen Not Detected U Marijuana (THC) Screen Not Detected COVID-19 ([facility]IA) COVID-19 Clin Com 05/02/21 05/03/21 05/03/21 21:06 07:47 07:47 WBC RBC Hgb Hct MCV MCH MCHC RDW Plt Count MPV Immature Gran % (Auto) Neut % (Auto) Lymph % (Auto) [place] % (Auto) Eos % (Auto) Baso % (Auto) Lymph # (Auto) [place] # (Auto) Eos # (Auto) Baso # (Auto) Abs Immat Gran (auto) Absolute Neuts (auto) Absolute Nucleated RBC Nucleated RBC % (auto) Neutrophils % (Manual) Band Neutrophils % Lymphocytes % (Manual) Atypical Lymphs % (Man) Monocytes % (Manual) Abs Neuts (Manual) Lymphocytes # (Manual) Atyp Lymphs # (Manual) Monocytes # (Manual) Platelet Estimate Large Platelets Plt Morphology Comment RBC Morphology Stomatocytes Smear Tech's Comments Smear Path Review Sodium Potassium Chloride Carbon Dioxide Anion Gap BUN Creatinine Estim Creat Clear Calc Estimated GFR POC Glucose 92 Random Glucose Estimat Average Glucose Hemoglobin A1c % Calcium Total Bilirubin Direct Bilirubin AST ALT Alkaline Phosphatase Total Protein Albumin Triglycerides 151 Cholesterol 174 LDL Cholesterol, Calc 102 HDL Cholesterol 42 25-OH Vitamin D Total TSH 0.49 Urine Color Urine Appearance Urine pH Ur Specific [place] Urine Protein Urine Glucose (UA) Urine Ketones Urine Blood Urine Nitrite Ur Leukocyte Esterase Urine Opiates Screen Ur Barbiturates Screen Ur Phencyclidine Scrn Ur Amphetamines Screen U Benzodiazepines Scrn Urine Cocaine Screen U Marijuana (THC) Screen COVID-19 ([facility]ILIA) COVID-19 Clin Com 05/03/21 05/03/21 05/08/21 07:47 07:47 09:25 WBC RBC Hgb Hct MCV MCH MCHC RDW Plt Count MPV Immature Gran % (Auto) Neut % (Auto) Lymph % (Auto) [place] % (Auto) Eos % (Auto) Baso % (Auto) Lymph # (Auto) [place] # (Auto) Eos # (Auto) Baso # (Auto) Abs Immat Gran (auto) Absolute Neuts (auto) Absolute Nucleated RBC Nucleated RBC % (auto) Neutrophils % (Manual) Band Neutrophils % Lymphocytes % (Manual) Atypical Lymphs % (Man) Monocytes % (Manual) Abs Neuts (Manual) Lymphocytes # (Manual) Atyp Lymphs # (Manual) Monocytes # (Manual) Platelet Estimate Large Platelets Plt Morphology Comment RBC Morphology Stomatocytes Smear Tech's Comments Smear Path Review Sodium 141 Potassium 4.7 Chloride 108 Carbon Dioxide 23 Anion Gap 15 BUN 14 Creatinine 0.75 Estim Creat Clear Calc 77.9 Estimated GFR > 60 POC Glucose Random Glucose 128 H Estimat Average Glucose 117 Hemoglobin A1c % 5.7 Calcium 9.5 Total Bilirubin Direct Bilirubin AST ALT Alkaline Phosphatase Total Protein Albumin Triglycerides Cholesterol LDL Cholesterol, Calc HDL Cholesterol 25-OH Vitamin D Total 30.8 TSH Urine Color Urine Appearance Urine pH Ur Specific [place] Urine Protein Urine Glucose (UA) Urine Ketones Urine Blood Urine Nitrite Ur Leukocyte Esterase Urine Opiates Screen Ur Barbiturates Screen Ur Phencyclidine Scrn Ur Amphetamines Screen U Benzodiazepines Scrn Urine Cocaine Screen U Marijuana (THC) Screen COVID-19 ([facility]ILIA) COVID-19 Clin Com Airway Mallampati Class: IV TM Dist: >3cm Neck ROM: Full Heart: Irred gular Lungs: CTA
--- NOTE | 2021-05-14 07:17 | MHC.SHP ---
Pre-Procedural Eval Section A The patient is an INPATIENT: Yes Changes since office visit: Yes Cold of Flu in the past 2 weeks, Yes New Medical Problems, Yes Changes in Medication and Yes Patient answered all questions The History & Physical has been completed within 30 days and I have reviewed it.: Yes Section B Chief Complaint: Depression Allergies: Allergies Allergy/AdvReac Type Severity Reaction Status Date / Time hornet venom [HORNETS] Allergy Unknown UNKNOWN Verified 12/28/20 13:03 morphine [MORPHINE] Allergy Unknown UNKNOWN Verified 12/28/20 13:03 tetracycline [TETRACYCLINE] Allergy Unknown UNKNOWN Verified 12/28/20 13:03 aspirin AdvReac Unknown nose bleeds Verified 12/28/20 13:04 Plan I have reviewed the history and physical and performed a pertinent physical examination on my patient. No changes have occurred unless specified.
--- NOTE | 2021-05-14 08:01 | HO.ECTPROC ---
ECT Procedure Note Diagnosis/Treatment Date of Service: 05/14/21 Diagnosis: Major Depressive Disorder Previous ECT Date: 05/11/21 Current Treatment Number: 5 Treatment: Series Interval Clinical Notes: The patient reported improvement of her mood since ECT was started ECT Settings Device: THYMATRON DGx Electrode Placement: Right Unilateral Program/Pulse Width: 0.25 Energy Percent: 70 Seizure Duration By EEG (in seconds): 38 Medications Administration General Anesthetic: Etomidate Muscle Relaxant: Succinylcholine Ancillary Medications Analgesics: Torodol - Pre ECT Anti-emetics: Zofran - Pre ECT Cardiovascular Medications: Esmolol Airway Management Airway Management: Bag Mask Ventilation Treatment Recommendations No Changes Recommended: No change Pt Tolerated Procedure w/o Issue: Yes
[2021-05-14] MEDS: Metoprolol Succinate ER 50 MG TAB.ER.24H PO (10:07)
[2021-05-14] MEDS: Venlafaxine HCl ER 150 MG CAP.ER.24H PO (10:07)
[2021-05-14] MEDS: Atorvastatin Calcium 80 MG TABLET PO (10:08)
[2021-05-14] MEDS: Sucralfate 1 GM TABLET PO (10:08)
[2021-05-14] MEDS: amLODIPine Besylate 5 MG TABLET PO (10:08)
[2021-05-14] MEDS: Apixaban 5 MG TABLET PO (10:08)
[2021-05-14] MEDS: Levothyroxine Sodium 100 MCG TABLET PO (10:08)
[2021-05-14] MEDS: Omeprazole 20 MG CAPSULE.DR PO (10:08)
--- NOTE | 2021-05-14 10:26 | PM.PSYDC ---
DS: Providers Provider Date of Service: 05/14/21 Date of admission: 05/01/21 23:37 Date of discharge: 05/14/21 Primary care physician: Freedom Liu MD Attending physician on discharge: Rogerio Sinclair DS: Diagnosis Discharge Diagnosis (1) Preoperative cardiovascular examination: Status: Acute (2) MDD (major depressive disorder), recurrent episode, severe: Status: Acute (3) PAF (paroxysmal atrial fibrillation): Status: Acute DS: Medications Discharge Medications Home Medications: Home Medications Medication Instructions Recorded Confirmed desvenlafaxine succinate 50 mg 50 mg PO DAILY 12/28/20 05/01/21 tablet,extended release 24 hr diclofenac sodium 1 % topical gel 1 g TOPICAL QID PRN 12/28/20 05/01/21 dicyclomine 20 mg tablet 20 mg PO TID 12/28/20 05/01/21 loperamide 2 mg capsule 2 mg PO DAILY PRN 12/28/20 05/01/21 atorvastatin 80 mg PO DAILY 05/01/21 05/01/21 levothyroxine 100 mcg PO DAILY 05/01/21 05/01/21 lorazepam [Ativan] 0.25 mg PO DAILY PRN 05/01/21 05/01/21 lorazepam [Ativan] 0.5 mg PO BEDTIME PRN 05/01/21 05/01/21 metformin 500 mg PO DAILY 05/01/21 05/01/21 Previous Rx's Medication Instructions Recorded metoprolol succinate 25 mg 25 mg PO DAILY #90 tab 09/07/20 tablet,extended release 24 hr apixaban 5 mg tablet 5 mg PO BID 90 Days #180 tab 12/14/20 amlodipine 5 mg tablet 5 mg PO DAILY #90 tab 03/06/21 Discharge Plan Discharge Patient Disposition: Home, Self-Care Discharge Diagnosis: Major Depressive Disorder recurrent episode severe without psychosis Referrals: Lashell Hatfield (psychiatrist) [Other] - 05/16/21 9:30 am (Telehealth appointment) Irwin Knowles (therapist) [Other] - 05/17/21 9:00 am (Telehealth appointment) Freedom Liu MD [Primary Care Provider] - 1 Week Discharge Medications: New trazodone 50 mg Tablet 50 mg PO BEDTIME PRN (Reason: Insomnia) 30 Days Qty: 30 RF: 0 sucralfate 1 gram Tablet 1 g PO QIDACHS 30 Days Qty: 30 RF: 0 omeprazole 20 mg Capsule,Delayed Release(Dr/Ec) 20 mg PO BID@0630,1630 30 Days Qty: 60 RF: 0 Continued metformin 500 mg tablet extended release 24 hr 500 mg PO DAILY RF: 0 levothyroxine 100 mcg tablet 100 mcg PO DAILY RF: 0 atorvastatin 80 mg Tablet 80 mg PO DAILY 90 Days Qty: 90 RF: 0 amlodipine 5 mg tablet 5 mg PO DAILY Qty: 90 RF: 1 lorazepam [Ativan] 0.5 mg Tablet 0.5 mg PO BEDTIME PRN (Reason: Anxiety) 30 Days Qty: 30 RF: 0 metoprolol succinate 25 mg tablet extended release 24 hr 25 mg PO DAILY 90 Days Qty: 90 RF: 3 desvenlafaxine succinate 50 mg tablet extended release 24 hr 50 mg PO DAILY 30 Days Qty: 30 RF: 0 Eliquis 5 mg tablet 5 mg PO BID 90 Days Qty: 180 RF: 1 diclofenac sodium 1 % gel 1 g topical QID PRN (Reason: joint pain) RF: 0 Changed dicyclomine 20 mg tablet 20 mg PO TID PRN (Reason: irritable bowel syndrome) 30 Days Qty: 30 RF: 0 Discontinued lorazepam [Ativan] 0.5 mg Tablet 0.25 mg PO DAILY PRN (Reason: Anxiety) RF: 0 loperamide 2 mg capsule 2 mg PO DAILY PRN (Reason: Diarrhea) RF: 0 Discharge Orders: Discharge Order (Routine); Ordered 05/14/21 Ordered By: Rogerio Sinclair Diet: diabetic diet Activity on Discharge: As tolerated Stand Alone Forms: Patient Portal Discharge page Care Plan Goals: Continue Care Plan goals with outpatient providers and ECT team at [facility] Health Concerns: Stable atrial fibrillation, continue treatment with PCP and interior design project manager Plan of Treatment: Continue Medication management as an outpatient with Dr. Lashell Fraser and ECT with [facility] ECT team. Assessment: Elderly female with MDD, admitted for ECT since she has failed to several antidepressants in the community. She responded very well with the ECT treatment, now safe and much better, back to her baseline Mental Status Exam Mental Status Exam Patient Appearance: Well Grooomed and Appropriate Patient Orientation: Person, Place, Time and Situation Level of Consciousness: Awake and Appropriate Patient Behavior: Cooperative Mood Description: Calm Affect Description: Constricted Patient Cognition Impaired: No Ability to Follow Directions: Good Speech Pattern: Clear Memory Description: Intact Hallucinations: None Delusions: Not Present Thought Process: Goal Oriented Thought Content: positive for Intact (no suicidal or homicidal thoughts, no delusions or hallucinations) Judgement: Fair Data Data Completed and Pending Completed studies during hospitalization [Text1]: 05/08/21 09:25 Sodium 141 Potassium 4.7 Chloride 108 Carbon Dioxide 23 Anion Gap 15 BUN 14 Creatinine 0.75 Estim Creat Clear Calc 77.9 Estimated GFR > 60 Random Glucose 128 H Calcium 9.5 Imaging Diagnostic Imaging Impressions Chest X-Ray 05/01/21 18:14 IMPRESSION: Unremarkable chest examination. DS: Summary Hospital Course Hospital Course: The patient was initially admitted from the community since she recently had a bout of depression that has not responded to several medication trials and has impaired severely her daily functionality; currently on Pristiq with very limited efficacy. Historically, the patient responded very well to ECT, and last year, it has to be stopped due to PAF. Now, Cardiology saw her and suggested Esmolol while on ECT. We discussed the risks and benefits and the patient agreed to start ECT in the unit. She received 5 treatments and she responded dramatically, her mood was less dysphoric,, her affect was brighter and she was able to participate in the unit's activity with no evidence of suicidality or safety concerns. She agreed to continue ECT as an outpatient. Status at Discharge Functional status at discharge: independent ambulation Overall status at discharge: patient is back to baseline Time Spent with Patient Time attestation: Total time spent providing and/or coordinating discharge services: Time spent: Less than 30 minutes
--- NOTE | 2021-05-14 10:55 | HO.POSTANES ---
Post Anesthesia Evaluation Post Anesthesia Evaluation Vital Signs: Vital Signs Temp Pulse Resp BP Pulse Ox 05/14/21 10:08 96 113/64 05/14/21 10:07 96 113/64 05/14/21 09:15 97 18 146/62 H 95 05/14/21 09:00 90 18 153/64 H 94 05/14/21 08:45 97 18 140/66 H 94 05/14/21 08:40 101 H 18 140/78 H 97 05/14/21 08:35 103 H 18 144/73 H 97 05/14/21 08:30 98.3 F 98 16 129/105 H 94 05/14/21 06:31 98.2 F 88 16 152/69 H 98 05/14/21 05:18 97.9 F 89 18 131/63 96 05/14/21 05:16 97.9 F 89 18 131/63 96 Anesthesia: General Mental Status: Awake Pain Control: Satisfactory Nausea/Vomiting: None Hydration: Adequate Anesthesia-Related Issues: No Anes. Related Issues
--- NOTE | 2021-05-14 13:18 | PC.NURSE ---
Pt walked off the floor at 1350 with all belongings in her possession. Staff member was present to walk her out to her ride. Discharge paperwork explained to pt, pt reported she understood and signed paperwork. The pt denies SI;HI, denies AH;VH. The pt reports she feels safe to go home.
== END 2021-05-14 12:50 | disposition home or self-care (01) | DRG 885 ==
LOC: HO.ED 20:21 → HO.PGERI 23:51
PROVIDERS: Nurse Practitioner Family; Psychiatry & Neurology Psychiatry; Social Worker; Admitting Provider Psychiatry & Neurology Psychiatry; Emergency Provider Internal Medicine; PCP Family Medicine; Visit Provider Psychiatry & Neurology Psychiatry
PROC: GZB4ZZZ Other Electroconvulsive Therapy (ICD-10-PCS; CPT 90870; principal; 2021-05-04 08:30)
PROC: (CPT 90870; principal; 2021-05-07 07:30)
DX: F33.2 Major depressive disorder, recurrent severe without psychotic features (principal); C91.00 Acute lymphoblastic leukemia not having achieved remission; I48.0 Paroxysmal atrial fibrillation; E03.9 Hypothyroidism, unspecified; Z20.822 Contact with and (suspected) exposure to COVID-19; Z88.5 Allergy status to narcotic agent; Z88.6 Allergy status to analgesic agent; Z79.01 Long term (current) use of anticoagulants; Z79.890 Hormone replacement therapy; Z79.899 Other long term (current) drug therapy; I10 Essential (primary) hypertension
CPT/HCPCS: 36415; 71046; 80048; 80061; 80076; 80307; 81003; 82306; 82947; 83036; 84443; 85007; 85025; 85027; 87635; 90870; 93005; 99285; J0330; J1885; J2405

== ENCOUNTER → 2021-06-06 14:25 | Outpatient (BNVA) | payer MEDICARE, MEDICAID, SELFPAY | PROVIDERS: PCP Family Medicine; Visit Provider Internal Medicine | DX: I48.0 Paroxysmal atrial fibrillation (principal); I10 Essential (primary) hypertension; E11.8 Type 2 diabetes mellitus with unspecified complications | CPT/HCPCS: 93005; 99212 ==

== ENCOUNTER → 2021-12-04 12:13 | Outpatient (BNVA) | payer MEDICARE, MEDICAID, SELFPAY | PROVIDERS: PCP Family Medicine; Referring Provider Family Medicine; Visit Provider Internal Medicine | DX: I48.0 Paroxysmal atrial fibrillation (principal); I10 Essential (primary) hypertension; E11.9 Type 2 diabetes mellitus without complications; Z79.01 Long term (current) use of anticoagulants; Z79.84 Long term (current) use of oral hypoglycemic drugs; Z79.899 Other long term (current) drug therapy | CPT/HCPCS: 99212 ==

== ENCOUNTER → 2022-06-26 14:03 | Outpatient (BNVA) | payer MEDICARE, MEDICAID, SELFPAY | PROVIDERS: PCP Family Medicine; Visit Provider Internal Medicine | DX: I48.0 Paroxysmal atrial fibrillation (principal); I10 Essential (primary) hypertension; E11.8 Type 2 diabetes mellitus with unspecified complications; Z79.899 Other long term (current) drug therapy | CPT/HCPCS: 93005; 99212 ==

== ENCOUNTER → 2023-01-28 13:00 | Outpatient (BNVA) | payer MEDICARE, MEDICAID, SELFPAY | PROVIDERS: PCP Family Medicine; Referring Provider Family Medicine; Visit Provider Internal Medicine | DX: I48.0 Paroxysmal atrial fibrillation (principal); I10 Essential (primary) hypertension; E11.8 Type 2 diabetes mellitus with unspecified complications; E78.00 Pure hypercholesterolemia, unspecified; Z79.01 Long term (current) use of anticoagulants; Z79.899 Other long term (current) drug therapy | CPT/HCPCS: 99212 ==

== ENCOUNTER 2023-07-31 12:50 | Outpatient (AMB) | payer MEDICARE, MEDICAID, SELFPAY ==
[2023-07-31 13:06] VITALS: BP 160/82; PULSE 60; BMI 36.0
--- NOTE | 2023-07-31 13:06 | MHC.OFFVIS ---
Intake Vital Signs 07/31/23 13:06 Height 5 ft 5 in Weight 216 lb 7.903 oz BMI 36.0 BP 160/82 H Blood Pressure Location Lt brachial Position Sitting Pulse 60 Pulse Source Pulse Oximeter Intake Visit Reasons: [facility] follow up Intake Note: [facility] f[facility]u [facility] Office Coordinator Required: No Allergies hornet venom [HORNETS] Allergy (Unknown, Verified 07/31/23 13:12) UNKNOWN morphine [MORPHINE] Allergy (Unknown, Verified 07/31/23 13:12) UNKNOWN tetracycline [TETRACYCLINE] Allergy (Unknown, Verified 07/31/23 13:12) UNKNOWN aspirin Adverse Reaction (Unknown, Verified 07/31/23 13:12) nose bleeds Medication List - Last Reconciled 07/31/23 by WILLARD Diallo amlodipine 5 mg PO DAILY apixaban (Eliquis) 5 mg PO BID 90 days atorvastatin 80 mg PO DAILY 90 days blood pressure test kit-large As directed clonazepam 0.25 mg PO BEDTIME desvenlafaxine succinate ER 50 mg PO DAILY 30 days diclofenac sodium 1% 1 g topical QID PRN epinephrine IM DAILY eszopiclone (Lunesta) 3 mg PO ONCE hydroxyzine HCl 10 - 20 mg PO QID PRN levothyroxine 100 mcg PO DAILY metoprolol succinate ER 25 mg PO DAILY 90 days nitrofurantoin monohyd/m-cryst 100 mg 1 cap PO BID quetiapine 12.5 mg PO TID HPI [facility] follow up HPI Details Liane is a 73-year-old female with past medical history of hypertension, hyperlipidemia, diabetes, depression, paroxysmal atrial fibrillation who was recently seen at [facility] for chest discomfort. She ruled out for ACS and pulmonary embolism and was continued on her same medications. Today she reports that when she went to hospital she had a discomfort that started in her back then after a while it came to her right lower chest below breast. She describes it as worse with inspiration. It caused her much concern. She does not recall having symptom like this previously. She 1st went to her PCP office where she says her blood pressure was found to be over 200 systolic. They had her then go to [facility] for evaluation. She was noticing some shortness of breath at that time which does continue but has improved some.. She tells me in the last several weeks she has noticed increased fatigue. She describes having a recent stress test, pulmonary function test and Holter monitor at [facility]. She has been taking Spravato treatments and this event happened the day following a treatment however she describes no issues with her other treatments in the last 6 months. She tells me she did take her 1st dose of Modafinil the day prior to going to the ER. Overall she has not had recurrent chest discomfort, she continues with shortness of breath and fatigue. Her blood pressure is elevated at times. She has been taking all her meds as directed with the exception of Modafinil. [facility] Medical History High cholesterol Hypothyroidism Essential hypertension PAF (paroxysmal atrial fibrillation) Surgical History Hx of plastic surgery Family History Father FH: prostate cancer Mother CVD (cardiovascular disease) Social History Household Members: None Housing: Other Do you presently have visiting nurse or other home services: No Alcohol intake: current Alcohol intake frequency: holidays/special occasions only Patient Tobacco Use Status: Never used Tobacco service: No Review of Systems Const All systems reviewed & are unremarkable except as noted in HPI and below ENT Denies dizziness Card Reports chest pain, Denies chest pain at rest, Denies chest pain with activity, Denies rapid heart rate, Denies pedal edema, Denies edema, Denies leg edema, Denies lightheadedness, Denies palpitations, Denies dyspnea, Reports dyspnea on exertion and Denies orthopnea Resp Denies cough, Denies dyspnea and Reports dyspnea on exertion GI Denies hematochezia and Denies change in stool character Musc Denies abnormal gait, Denies limited range of motion, Denies muscle cramps, Denies muscle weakness, Denies numbness, Denies radiating pain into limb, Denies stiffness and Denies tingling Neuro Denies abnormal gait, Denies dizziness, Denies numbness and Denies tingling Endo Denies palpitations Physical Exam Vital Signs: Last Vital Signs Pulse 60 07/31/23 13:06 BP 160/82 H 07/31/23 13:06 BMI result Body Mass Index 36.0 Const General: cooperative, healthy appearing, comfortable and no acute distress Orientation/consciousness: patient oriented x3 Neck Neck: Yes normal visual inspection and Yes no JVD Resp Effort & Inspection: normal respiratory effort Auscultation: clear to auscultation bilaterally, no crackles, no rales, no rhonchi and no wheezes Cardio Jugular venous distension: no JVD Rate: regular rate Rhythm: regular rhythm Heart sounds: S1 normal heart sound present, S2 normal heart sound present, no gallops, no murmurs and no rubs Neuro General: patient oriented x3 Extrem General: Yes normal to inspection and No no pedal edema Psych Appearance: grossly normal Mental Status: mental status grossly normal Speech and movement: Normal speech and movement present Assessment & Plan Assessment & Plan (1) Chest discomfort: Code(s): R07.89 - Other chest pain Plan: Recent [facility] evaluation for atypical chest discomfort. It was pleuritic in nature and localized in the right lower chest region, below breast. She did have shortness of breath at 1 point they did document some hypoxia. She underwent a CTA of the chest which was negative for PE. She ruled out for acute coronary syndrome. An echocardiogram was done showing EF 50-55%, no regional wall motion abnormalities. Her EKG did have T-wave inversions in leads V2 and V3 however when compared to EKG done in our office 06/26/2022 the findings are similar. She has no known history of CAD. She has cardiac risk factors of hypertension, hyperlipidemia, obesity. She tells me she did undergo a stress test a few months ago at [facility]. She also describes having a Holter monitor and pulmonary function test there as well. Need will need to work on obtaining those records. At present it is unclear what her chest discomfort was related to. The [facility] discharge note indicates unclear etiology. Blood pressure is mildly elevated today however she admits to being anxious regarding her hospital admission, testing and lack of findings. Will have her continue current meds without change including amlodipine, metoprolol, atorvastatin. She is not on aspirin as she is on Eliquis. Will plan to call her with plan of care, any further testing. At present will keep her next cardiology follow-up as scheduled, due January 2023 (2) PAF (paroxysmal atrial fibrillation): Code(s): I48.0 - Paroxysmal atrial fibrillation Plan: History of paroxysmal atrial fibrillation. Reports of intermittent heart palpitations. She is on metoprolol for heart rate control. She is on Eliquis for anticoagulation. No bleeding issues reported. No med changes made at present. Will be obtaining Holter as above. (3) Essential hypertension: Code(s): I10 - Essential (primary) hypertension Plan: Patient reports blood pressure elevated with systolic over 200 when she went to PCP visit on day of [facility] discharge. [facility] notes reviewed and high his blood pressure I see documented is 154/65. Will try to obtain records from her PCP office at [facility]. She describes her hospital presentation to be on the day following Spravato treatment. She also describes taking a 1st dose of Modafinil that evening. Her blood pressure could have been elevated from the discomfort she was experiencing as well as the stress/anxiety of symptoms and need for ER visit. At present no clear link to Spravato treatment. Will plan to review records as above and then notify her psychiatric care provider of our cardiac recommendations. (4) Type 2 diabetes mellitus with unspecified complications: Code(s): E11.8 - Type 2 diabetes mellitus with unspecified complications Coding Level of Care Code Est Pt Level 4 (22052) Diagnoses Chest discomfort R07.89 PAF (paroxysmal atrial fibrillation) I48.0 Essential hypertension I10 Type 2 diabetes mellitus with unspecified complications E11.8 Time Spent (min) 30 Comment chart review, document, interviewed, assess
== END 2023-07-31 13:37 | disposition home or self-care (01) ==
PROVIDERS: PCP Family Medicine; Referring Provider Family Medicine; Visit Provider Nurse Practitioner Family
DX: R07.89 Other chest pain (principal); I48.0 Paroxysmal atrial fibrillation; I10 Essential (primary) hypertension; E11.8 Type 2 diabetes mellitus with unspecified complications
CPT/HCPCS: 99214

== ENCOUNTER → 2023-07-31 12:50 | Outpatient (BNVA) | payer MEDICARE, MEDICAID, SELFPAY | PROVIDERS: PCP Family Medicine; Referring Provider Family Medicine; Visit Provider Nurse Practitioner Family | DX: R07.89 Other chest pain (principal); I10 Essential (primary) hypertension; I48.0 Paroxysmal atrial fibrillation; E11.9 Type 2 diabetes mellitus without complications | CPT/HCPCS: 99212 ==